=== PATIENT | female | born 1995 | race Caucasian/White ===

== ENCOUNTER → 2023-07-13 | Outpatient (CLI) | payer MEDICAID, SELFPAY ==
[2023-07-13 18:31] LABS: Amphetamine Urine VISTA NEGATIVE (<1000 ng/mL); Barbiturate Urine VISTA NEGATIVE (< 200 ng/mL); Benzodiazepine Urine VISTA POSITIVE (< 200 ng/mL); Cocaine Urine VISTA NEGATIVE (< 300 ng/mL); Ecstacy Urine VISTA NEGATIVE (< 500 ng/mL); Methadone Urine VISTA NEGATIVE (< 300 ng/mL); PCP Urine VISTA NEGATIVE (< 25 ng/mL); THC Urine VISTA POSITIVE (< 50 ng/mL); Vista UDS pH Range 7
[2023-07-16 09:09] LABS: Chlamydia By Nucleic Acid AMP Negative (Negative); Gonococcus By Nucleic Acid AMP Negative (Negative)
== END | disposition home or self-care (01) ==
PROVIDERS: Referring Provider Registered Nurse; Visit Provider Registered Nurse
DX: O09.819 Supervision of pregnancy resulting from assisted reproductive technology, unspecified trimester (principal); F11.21 Opioid dependence, in remission; O99.320 Drug use complicating pregnancy, unspecified trimester; Z3A.00 Weeks of gestation of pregnancy not specified
CPT/HCPCS: 80307; 87086; 87491; 87591

== ENCOUNTER → 2023-07-20 | Outpatient (CLI) | payer MEDICAID, SELFPAY ==
[2023-07-20 12:07] LABS: Absolute Lymphocyte Count 2.35 X10^3/uL (0.83-4.51); Absolute Neutrophil Count 7.7 X10^3/uL (2.0-7.7); Basophil# 0.03 X10^3/uL; Basophil% 0.3 % (0-1); Eosinophil# 0.11 X10^3/uL; Hematocrit 37.9 % (37-47); Hemoglobin 13.3 g/dL (12.0-15.0); Lymphocyte # 2.35 X10^3/ul (0.83-4.51); Lymphocyte % 22.1 % (19-41); Mean Corp Hgb Conc 35.1 g/dL (32-36); Mean Corpuscular Hgb 28.9 pg (27.0-32.0); Mean Corpuscular Volume 82.4 fL (81-99); Mean Platelet Vol. 10.7 fl (6.2-12.0); Monocyte# 0.44 X10^3/uL; Monocyte% 4.1 % (0-10); NRBC Flagged by Analyzer 0 % (0-5); Neutrophil # 7.69 X10^3/uL (2.7-7.7); Neutrophil % 72.3 % (47-70); Platelet Count 188 K/mm3 (150-450); RBC Distribution Width CV 13.1 % (11.6-14.6); RBC Distribution Width SD 39.2 fl (35.1-43.9); White Blood Count 10.6 K/mm3 (4.4-11.0)
[2023-07-20 13:03] LABS: NATERA MAILED SPECIMEN
[2023-07-20 13:17] LABS: HIV - WCH Non-Reactive (Nonreactive); Hepatitis B Surface Antigen Non-Reactive (Nonreactive); Hepatitis C Antibody Non-Reactive (Nonreactive); Rubella IgG Reactive (Nonreactive); Syphilis Antibodies Non-reactive
== END | disposition home or self-care (01) ==
LOC: PAVLAB 11:52
PROVIDERS: Referring Provider Registered Nurse; Visit Provider Registered Nurse
DX: Z34.81 Encounter for supervision of other normal pregnancy, first trimester (principal)
CPT/HCPCS: 36415; 85025; 86703; 86762; 86780; 86803; 86850; 86900; 86901; 87340

== ENCOUNTER → 2023-11-09 | Outpatient (CLI) | payer MEDICAID, SELFPAY ==
[2023-11-09 09:56] LABS: Absolute Lymphocyte Count 2.48 X10^3/uL (0.83-4.51); Absolute Neutrophil Count 7.3 X10^3/uL (2.0-7.7); Basophil# 0.04 X10^3/uL; Basophil% 0.4 % (0-1); Eosinophil# 0.13 X10^3/uL; Eosinophils% 1.2 % (0-5); Hematocrit 35.8 % (37-47); Lymphocyte # 2.48 X10^3/ul (0.83-4.51); Lymphocyte % 23.3 % (19-41); Mean Corp Hgb Conc 33.5 g/dL (32-36); Mean Corpuscular Hgb 28.5 pg (27.0-32.0); Mean Platelet Vol. 11.1 fl (6.2-12.0); Monocyte% 6.6 % (0-10); NRBC Flagged by Analyzer 0 % (0-5); Neutrophil # 7.25 X10^3/uL (2.7-7.7); Platelet Count 158 K/mm3 (150-450); RBC Distribution Width CV 13.2 % (11.6-14.6); RBC Distribution Width SD 41.1 fl (35.1-43.9); Red Blood Count 4.21 M/mm3 (4.2-5.4); White Blood Count 10.7 K/mm3 (4.4-11.0)
--- OUTSIDE RECORDS SUMMARY | 2023-11-09 09:58 | XMS RPT_ITS | CCD ---
Author Name Unknown Address [address] [place] [address] Organization [facility] Care Team Providers Care Registered Representative Name Role Phone No, Physician Unavailable Unavailable María Arellano Unavailable MARÍA ARELLANO Unavailable Unav ailable PRESTON, EARL MARÍA Unavailable Unavailab le MARÍA ARELLANO Unavailable Unav ailable NO, PHYSICIAN Unavailable Unavailable PRESTON, EARL MARÍA Unavailable Unavailab le NO, PHYSICIAN Unavailable Unavailable LoretaBalajiMerari M Unavailable Unavailable LoretaBalajiMerari M Unavailable Unavailable Arellano, María Unavailable Unavailable Arellano, María Unavailable Unavailable Arellano, María Unavailable Unavailable Arellano, María Unavailable Unavailable Preston, Earl E Unavailable Unavailable Preston, Earl E Unavailable Unavailable No, Physician Primary Care Provider Unavailabl e María Arellano Unavailable Unavailable Primary Care Provider Unavailabl e Unavailable Primary Care Provider Unavailabl e María Arellano Unavailable No, Physician Primary Care Provider UnavailMARÍA Moreno Attending Unav ailable NO, PHYSICIAN Primary Care Unavailable MARÍA ARELLANO Admitting Unav ailable NO, PHYSICIAN Primary Care Unavailable MERARI GONZALES Attending UnavailMaría Moreno MD Unavailable No, Physician Primary Care Provider Unavailabl e Unavailable Primary Care Provider UnavailTASNEEM Dumont Attending Unavailable ROBERT SANTANA Attending Unavailable COLETTE DRISCOLL Referring Unavailable TASNEEM LEDEZMA Attending Unavailable ARIA NEWELL Attending Unavailable SHERINE PRIMARY CAREMD Primary Care Unavailable HAILE LANDAVERDE Referring Unavailable NO PRIMARY CAREMD Primary Care Unavailable YADIEL SWENSON Attending Unavailable MALLIKA BOLAND Referring Unavailabl e Allergies Allergy Classification Reported Allergen(s) Allergy Type Date of Onset Reaction(s) Facility (7 sources) DULoxetine; Translations: [DULOXETINE] Drug Allergy 03-20-2012 Mental Status Change, Rash, Hives, Other: See Comments [facility] Medications Current Medications Medication Drug Class(es) Dates Sig (Normalized) Sig (Original) azithromycin 250 mg oral tablet (2 sources) Macrolide Antimicrobial Start: 09-27-2020 End: 09-30-2020 take 1 tablet by mouth once daily azithromycin 250 MG tablet 250 mg PO Once Daily X 4 days 4 tablet 0 09/27/2020 09/30/2020 Active Completed/Discontinued Medications Medication Drug Class(es) Dates Sig (Normalized) Sig (Original) acetaminophen 325 mg oral tablet (1 source) Start: 01-19-2021 End: 01-21-2021 take 1 tablet by mouth every four hours as needed 650 mg, Oral, Every 4 hours PRN, mild pain, Starting 01/19/21 at 2102, albuterol (VENTOLIN HFA) inhaler 2 puff (1 source) Start: 09-26-2020 End: 09-26-2020 albuterol (VENTOLIN HFA) inhaler 2 puff aluminum hydroxide 40 mg/ml / magnesium hydroxide 40 mg/ml / simethicone 4 mg/ml oral suspension (1 source) Start: 01-19-2021 End: 01-21-2021 take 30 mL by mouth every four hours as needed 30 mL, Oral, Every 4 hours PRN, indigestion, Starting 01/19/21 at 2102, benzocaine 200 mg/ml topical spray (1 source) Standardized Chemical Allergen Start: 01-19-2021 End: 01-21-2021 1 application, Topical, Every 4 hours PRN, pain, Starting 01/19/21 at 2102, To perineal area. buprenorphine 8 mg sublingual tablet (14 sources) Partial Opioid Agonist Start: 04-01-2023 buprenorphine SL (SUBUTEX) 8 mg subl Problems Active Problems Problem Classification Problem Date Documented Date Episodic/Chronic Acute bronchitis (1 source) Acute bronchitis with bronchospasm; Translations: [Acute bronchitis with bronchospasm] Episodic Biliary tract disease (2 sources) Calculus of gallbladder without cholecystitis without obstruction; Translations: [Calculus of gallbladder without cholecystitis without obstruction] Onset: 04-01-2018 Episodic Cancer of cervix (6 sources) High grade squamous intraepithelial lesion on cervical Papanicolaou smear; Translations: [High grade squamous intraepithelial lesion on cytologic smear of cervix (HGSIL)] Onset: 04-13-2023 Episodic Disorders of teeth and jaw (1 source) Infection of tooth; Translations: [Dental infection] Episodic Normal and/or delivery (7 sources) Normal ; Translations: [Vaginal delivery] Onset: 12-25-2017 12-28-2017 Episodic Other and delivery including normal (2 sources) Normal in primigravida; Translations: [Supervision of normal first ] Onset: 12-25-2017 12-28-2017 Screening or history of mental health and substance abuse (4 sources) Tobacco user; Translations: [Tobacco abuse] Onset: 07-09-2017 12-25-2017 Chronic Substance-related disorders (5 sources) Drug abuse in remission; Translations: [History of drug abuse] Onset: 07-09-2017 12-25-2017 Chronic Unclassified (1 source) Contusion of right elbow; Translations: [Contusion of right elbow, initial encounter] Past or Other Problems Problem Classification Problem Date Documented Date Episodic/Chronic Immunizations and screening for infectious disease (4 sources) Patient encounter status; Translations: [Encounter for screening for infections with a predominantly sexual mode of transmission] Onset: 04-03-2023 Episodic Other screening for suspected conditions (not mental disorders or infectious disease) (2 sources) Cancer cervix screening status; Translations: [Encounter for screening for malignant neoplasm of cervix] Onset: 04-03-2023 Episodic Residual codes; unclassified (1 source) Tobacco user; Translations: [Tobacco use] Onset: 07-09-2017 12-25-2017 Episodic Results Test Name Value Interpretation Reference Range Facil ity Vital Signs Date Time Vital Sign Value Performing Clinician Facility 04-17-2023 14:0400 Body weight 65.77 kg Robert Santana MD Work Phone: [facility] 04-17-2023 14:09-0400 Diastolic blood pressure 70 mm[Hg] Robert Santana MD Work Phone: [facility] 04-17-2023 14:09-0400 Systolic blood pressure 108 mm[Hg] Robert Santana MD Work Phone: [facility] 04-03-2023 11:05-0400 Body height 172.7 cm Tasneem Gary BUSINESS RELATIONS MANAGER.DOMESTIC HOUSEKEEPER Work Phone: [facility] 04-03-2023 11:05-0400 Body weight 63.96 kg Tasneem Gary BUSINESS RELATIONS MANAGER.DOMESTIC HOUSEKEEPER Work Phone: [facility] 04-03-2023 11:05-0400 Diastolic blood pressure 62 mm[Hg] Tasneem Brisa BUSINESS RELATIONS MANAGER.DOMESTIC HOUSEKEEPER Work Phone: [facility] 04-03-2023 11:05-0400 Systolic blood pressure 118 mm[Hg] Tasneem Brisa BUSINESS RELATIONS MANAGER.DOMESTIC HOUSEKEEPER Work Phone: [facility] 01-21-2021 08:54-0400 Body Temperature 98.1 [degF] [facility] 01-21-2021 08:54-0400 BP Diastolic 66 mm[Hg] [facility] 01-21-2021 08:54-0400 BP Systolic 116 mm[Hg] [facility] 01-21-2021 08:54-0400 Pulse (Heart Rate) 88 /min [facility] 01-21-2021 08:54-0400 Pulse Oximetry 98 % [facility] 01-21-2021 08:54-0400 Respiratory Rate 14 /min [facility] 01-19-2021 18:15-0400 BMI (Body Mass Index) 22.74 kg/m2 [facility] 01-19-2021 18:15-0400 Body weight 69.85 kg [facility] 01-19-2021 18:15-0400 Height 175.3 cm [facility] 09-26-2020 05:36-0500 Body Temperature 97.9 [degF] [facility] 09-26-2020 05:36-0500 BP Diastolic 72 mm[Hg] [facility] 09-26-2020 05:36-0500 BP Systolic 126 mm[Hg] [facility] 09-26-2020 05:36-0500 Pulse (Heart Rate) 109 /min [facility] 09-26-2020 05:36-0500 Pulse Oximetry 99 % [facility] 09-26-2020 05:36-0500 Respiratory Rate 16 /min [facility] 03-10-2020 14:11-0400 BMI (Body Mass Index) 20.67 kg/m2 [facility] 03-10-2020 14:11-0400 Body weight 63.5 kg [facility] 03-10-2020 14:11-0400 Height 175.3 cm [facility] 03-10-2020 14:10-0400 Body Temperature 98.1 [degF] [facility] 03-10-2020 14:10-0400 BP Diastolic 58 mm[Hg] [facility] 03-10-2020 14:10-0400 BP Systolic 105 mm[Hg] [facility] 03-10-2020 14:10-0400 Pulse (Heart Rate) 98 /min [facility] 03-10-2020 14:10-0400 Pulse Oximetry 95 % [facility] 03-10-2020 14:10-0400 Respiratory Rate 18 /min [facility] 11-08-2019 23:12-0500 BP Diastolic 74 mm[Hg] Yousuf Barboza [facility] 11-08-2019 23:12-0500 BP Systolic 124 mm[Hg] Yousuf Barboza [facility] 11-08-2019 23:12-0500 Pulse (Heart Rate) 90 /min Yousuf Barboza [facility] 11-08-2019 23:12-0500 Pulse Oximetry 99 % Yousuf Barboza [facility] 11-08-2019 23:12-0500 Respiratory Rate 18 /min Yousuf Barboza [facility] 11-08-2019 21:24-0500 BMI (Body Mass Index) 20.67 kg/m2 Yousuf Barboza [facility] 11-08-2019 21:24-0500 Body Temperature 98.29 [degF] Yousuf Barboza [facility] 11-08-2019 21:24-0500 Body weight 63.5 kg Yousuf Barboza [facility] 11-08-2019 21:24-0500 Height 175.3 cm Yousuf Barboza [facility] 04-01-2018 13:05-0400 BMI (Body Mass Index) 20.98 kg/m2 Earl Johnston [facility] 04-01-2018 13:05-0400 Body Temperature 97.81 [degF] Earl Preston [facility] 04-01-2018 13:05-0400 BP Diastolic 65 mm[Hg] Earl [facility] 04-01-2018 13:05-0400 BP Systolic 117 mm[Hg] [facility] 04-01-2018 13:05-0400 Height 175.3 cm [facility] 04-01-2018 13:05-0400 Pulse (Heart Rate) 96 /min [facility] 04-01-2018 13:05-0400 Pulse Oximetry 97 % [facility] 04-01-2018 13:05-0400 Weight 64.46 kg [facility] Encounters Encounter Date Encounter Type Care Provider Facility Start: 10-13-2023 End: 10-13-2023 ambulatory ARIA Carmen [facility] Start: 09-10-2023 End: 09-10-2023 ambulatory MD [facility] Start: 06-17-2023 Telephone encounter Rajani Philippe MD Work Phone: OB/Gynecology Procedures Date Procedure Procedure Detail Performing Clinician Start: 04-17-2023 Urine test visual color cmprsn meths Robert Santana MD Work Phone: Start: 01-20-2021 Complete blood count with white cell differential, automated María Arellano Work Phone: Start: 01-20-2021 Complete blood count with white cell differential, manual María Arellano Work Phone: Start: 01-19-2021 Drugs of abuse urine screening test María Arellano Work Phone: Start: 01-19-2021 COVID-19/INFLUENZA A ,B MOLECULAR María Arellano Work Phone: Start: 01-14-2021 Chlamydia deoxyribon ucleic acid detection Historical Provider Start: 01-14-2021 Rapid plasma reagin test Historical Provider Start: 07-17-2020 Blood type and Indir ect antibody screen panel - Blood Historical Provider Start: 07-17-2020 Hepatitis B surface antigen measurement Historical Provider Start: 07-17-2020 Hepatitis C antibody measurement Historical Provider Start: 07-17-2020 Human immunodeficien cy virus test Historical Provider Start: 07-17-2020 Rubella IgG measurement Historical Provider Start: 11-08-2019 Radex elbow complete minimum 3 views Yousuf Bonifacio Barboza Work Phone: Plan of Treatment Date Care Activity Detail Author Start: 11-12-2030 Urine microalbumin profile DTAP,TDAP,TD (9 - Td or Tdap) [facility] Start: 12-01-2027 Tetanus vaccination [facility] Start: 04-03-2026 PAP TESTING PAP TESTING [facility] Start: 07-03-2023 Influenza vaccination [facility] Start: 06-02-2023 9vhpv vacc 2/3 dose sched im use HPV VACCINE, 9-VALENT (GARDASIL 9) Immunization/Injection Routine Need for prophylactic vaccination/inoculation against viral disease Expected: 06/02/2023 (Approximate) [facility] Work Phone: Immunizations Immunization Date Immunization Notes Care Provider Neil mcfarland 01-19-2021 measles, mumps and rubella virus vaccine [facility] 01-19-2021 varicella zoster imm une globulin [facility] 01-19-2021 diphtheria, tetanus toxoids and acellular pertussis vaccine, unspecified formulation [facility] 11-12-2020 tetanus toxoid, redu emily diphtheria toxoid, and acellular pertussis vaccine, adsorbed Tasneem Ledezma APRN.CNP Work Phone: [facility] 12-01-2017 tetanus toxoid, redu emily diphtheria toxoid, and acellular pertussis vaccine, adsorbed; Translations: [TDAP] María Arellano [facility] 08-12-2017 INFLUENZA QUAD 4YO O R >FLUCELVAX [id number]; Translations: [INFLUENZA QUAD 4YO OR >FLUCELVAX [id number]] María Arellano [facility] 08-12-2017 influenza virus vaccine, unspecified formulation [facility] 06-27-2014 hepatitis A vaccine, pediatric/adolescent dosage, 2 dose schedule Tasneem Gary BUSINESS RELATIONS MANAGER.DOMESTIC HOUSEKEEPER Work Phone: [facility] 06-27-2014 human papilloma viru s vaccine, quadrivalent Tasneem Brisa BUSINESS RELATIONS MANAGER.DOMESTIC HOUSEKEEPER Work Phone: [facility] 06-27-2014 meningococcal polysaccharide (groups A, C, Y and W-135) diphtheria toxoid conjugate vaccine (MCV4P) Tasneem Brisa BUSINESS RELATIONS MANAGER.DOMESTIC HOUSEKEEPER Work Phone: [facility] 06-27-2014 tetanus toxoid, redu emily diphtheria toxoid, and acellular pertussis vaccine, adsorbed Tasneem Gary BUSINESS RELATIONS MANAGER.DOMESTIC HOUSEKEEPER Work Phone: [facility] 06-27-2014 HPV, unspecified [facility]2002 diphtheria, tetanus toxoids and acellular pertussis vaccine, unspecified formulation Tasneem Brisa BUSINESS RELATIONS MANAGER.DOMESTIC HOUSEKEEPER Work Phone: [facility] 11-01-2002 measles, mumps and rubella virus vaccine Tasneem Gary BUSINESS RELATIONS MANAGER.DOMESTIC HOUSEKEEPER Work Phone: [facility] 11-01-2002 poliovirus vaccine, inactivated Tasneem Gary BUSINESS RELATIONS MANAGER.DOMESTIC HOUSEKEEPER Work Phone: [facility] 04-26-1998 diphtheria, tetanus toxoids and acellular pertussis vaccine, unspecified formulation Tasneem Brisa BUSINESS RELATIONS MANAGER.DOMESTIC HOUSEKEEPER Work Phone: [facility] 04-26-1998 haemophilus influenz ae type b vaccine, PRP-OMP conjugate Tasneem Brisa BUSINESS RELATIONS MANAGER.DOMESTIC HOUSEKEEPER Work Phone: [facility] 04-26-1998 measles, mumps and rubella virus vaccine Tasneem Gary BUSINESS RELATIONS MANAGER.DOMESTIC HOUSEKEEPER Work Phone: [facility] 04-26-1998 varicella virus vaccine Curtis e Brisa BUSINESS RELATIONS MANAGER.DOMESTIC HOUSEKEEPER Work Phone: [facility] 07-21-1997 diphtheria, tetanus toxoids and acellular pertussis vaccine, unspecified formulation Tasneem Gary BUSINESS RELATIONS MANAGER.DOMESTIC HOUSEKEEPER Work Phone: [facility] 07-21-1997 haemophilus influenz ae type b vaccine, conjugate unspecified formulation Tasneem Brisa BUSINESS RELATIONS MANAGER.DOMESTIC HOUSEKEEPER Work Phone: [facility] 07-21-1997 hepatitis B vaccine, pediatric or pediatric/adolescent dosage Tasneem Gary BUSINESS RELATIONS MANAGER.DOMESTIC HOUSEKEEPER Work Phone: [facility] 07-21-1997 trivalent poliovirus vaccine, live, oral Tasneem Brisa BUSINESS RELATIONS MANAGER.DOMESTIC HOUSEKEEPER Work Phone: [facility] 05-11-1997 diphtheria, tetanus toxoids and acellular pertussis vaccine, unspecified formulation Tasneem Gary BUSINESS RELATIONS MANAGER.DOMESTIC HOUSEKEEPER Work Phone: [facility] 05-11-1997 haemophilus influenz ae type b vaccine, conjugate unspecified formulation Tasneem Gary BUSINESS RELATIONS MANAGER.DOMESTIC HOUSEKEEPER Work Phone: [facility] 05-11-1997 trivalent poliovirus vaccine, live, oral Tasneem Brisa BUSINESS RELATIONS MANAGER.DOMESTIC HOUSEKEEPER Work Phone: [facility] 03-03-1997 diphtheria, tetanus toxoids and acellular pertussis vaccine, unspecified formulation Tasneem Gary BUSINESS RELATIONS MANAGER.DOMESTIC HOUSEKEEPER Work Phone: [facility] 03-03-1997 haemophilus influenz ae type b vaccine, conjugate unspecified formulation Tasneem Gary BUSINESS RELATIONS MANAGER.DOMESTIC HOUSEKEEPER Work Phone: [facility] 03-03-1997 hepatitis B vaccine, pediatric or pediatric/adolescent dosage Tasneem Brisa BUSINESS RELATIONS MANAGER.DOMESTIC HOUSEKEEPER Work Phone: [facility] 03-03-1997 trivalent poliovirus vaccine, live, oral Tasneem Brisa BUSINESS RELATIONS MANAGER.DOMESTIC HOUSEKEEPER Work Phone: [facility] 1995 hepatitis B vaccine, pediatric or pediatric/adolescent dosage Tasneem Gary BUSINESS RELATIONS MANAGER.DOMESTIC HOUSEKEEPER Work Phone: [facility] NEGATED: Highlighted row has not occurred!04-03-2023 Human Papillomavirus 9-valent vaccine Tasneem Gary BUSINESS RELATIONS MANAGER.DOMESTIC HOUSEKEEPER Work Phone: [facility] Work Phone: Payers Date Payer Category Payer Medicaid [employer] [id number] 2022-Present [phone] [address] [place] [address] Medicaid [id number] 2022 Medicaid [id number] 2016 Medicaid [id number] 2016 Medicaid xxxxxxxxxxx [id number] 2016 Unknown [id number] 1996 Unknown [id number] 1996 Unknown [id number] 1996 Unknown [id number] 1996 Unknown [id number] Social History Date Type Detail Facility Start: 04-01-2018 End: 04-03-2023 Tobacco smoking status LAIS Current every day smoker [facility] Start: 1995 Sex Assigned At Not on file O [facility] Start: 11-08-2019 End: 01-19-2021 Alcohol intake Current non-drinker of alcohol (finding) [facility] Start: 03-10-2020 End: 05-26-2023 Alcohol intake Ex-drinker (finding) [facility] Exposure to SARS-CoV -2 (event) Not sure [facility] Start: 09-26-2020 End: 04-03-2023 Tobacco use and exposure [facility] Start: 05-11-2020 [facility]: 03-24-2023 End: 05-26-2023 History of Social function [facility] Start: 03-24-2023 End: 05-26-2023 Tobacco use panel [facility] National Score (1-10 0), lower number is lower risk 57 [facility] Clinical Notes 04-03-2023 to 06-17-2023 Telephone Encounter - Angelia Florian RN - 06/17/2023 2:02 PM EDTTelephone Encounter - Tasneem Ledezma APRN.CNP - 06/17/2023 12:30 PM EDTPatient InstructionsRobert Santana MD - 04/17/2023 1:59 PM EDT Note Date & Type Note Facility 06-17-2023 Miscellaneous Notes Per RR note and AG request, patient was scheduled for PNOB and EST 1st OB. Patient called and scheduled. She has not gone to ER. At her mom's. Feeling a little better now. Angelia Florian RN Up to 20 weeks we can see them. Tasneem Ledezma APRN.TREVA Unfortunately we are very full for NOB visits. If she can see Ame then have a NOB somewhere if we have openings but we don't have extra spots right now for patients who miss appointments. I will say next available is best we can do. Rajani Philippe MD LMP 04/04/23 10w 4d Calling c/o n/v for the last day. Only able to keep a couple sips of Sprite down. Advised to go to ER for IV fluids/meds. Patient agreed. Noticed she had NOB visit with AG that she missed this morning. Attempted to reschedule her. First NOB with AG, RM or CP is 07/01/23. She would be 12w4d then. Is that okay for AG or RM to see at that point or should we try to schedule PNOB and sooner NOB with someone else? Sherri Ramirez RN documented in this encounter [facility] 06-10-2023 Miscellaneous Notes Call placed to patient to triage for new OB appt. Name and identified. LMP? 04/04/2023 from what she can remember PNV? Not yet Cats? no Pelvic pain? No, aside from cramping Vaginal bleeding? no N&V? If patient is vomiting, how often and is she keeping down fluids? Occasional nausea and vomiting Precautions for pain, bleeding, and nausea discussed with patient understanding. Any medical history that can effect the ? +HGSIL, was suppose to have a LEEP, but canceled when she got a + test Office/provider patient wishes to establish care to? [facility] Will forward this encounter to the schedulers in this office. ----- Message from Norah Aguilar sent at 06/10/2023 1:37 PM EDT ----- Regarding: triage new Patient has been identified by name and Date of : Yes Patient: Shon Taveras Date of : 1995 Provider for this encounter : Hi cells was schedule for leep procedure. No primary care provider on file. Reason for call: Triage Was an appointment scheduled: No Reason for requesting visit (RFV/signs and symptoms/diagnosis) : Patient has hi red blood cells Person calling: self Return call to: self Call patient at: on cell [phone] (home) [phone] (cell) Payor: [facility] [employer] / Plan: [employer] [facility] [employer] / Product Type: Medicaid / Norah Aguilar documented in this encounter [facility] 05-26-2023 Note HNO ID: [id number] Author: Tasneem Ledezma APRN.DOMESTIC HOUSEKEEPER Service: ? Author Type: Nurse Practitioner Type: Progress Notes Filed: 05/26/2023 11:31 AM Note Text: Shon Taveras is a 27 year old female who presents to discuss colp results HPI: Patient presents with her to discuss results of her abnormal Pap test and colposcopy biopsy results. She was confused about the telephone message regarding the LEEP procedure and future pregnancies. 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) 04/2023 PTSD (post-traumatic stress disorder) PAST SURGICAL HISTORY Procedure Laterality Date NONE No family history on file. Social History Tobacco Use Smoking status: Every Day Types: Cigarettes Smokeless tobacco: Never Vaping Use Vaping Use: Never used Substance Use Topics Alcohol use: Not Currently Drug use: Not Currently Current Outpatient Medications Medication Sig clonazePAM (KLONOPIN) 1 mg tablet gabapentin (NEURONTIN) 300 mg capsule (Patient not taking: Reported on 05/26/2023) buprenorphine SL (SUBUTEX) 8 mg subl medroxyPROGESTERone (DEPO-PROVERA) 150 mg/mL Inject 1 mL intramuscularly every 12 weeks. Current Facility-Administered Medications Medication Dose Route Frequency medroxyPROGESTERone 150 mg injection (DEPO-PROVERA) 150 mg INTRAMUSCULAR every 12 weeks Allergies As of Date: 05/26/2023 Allergen Noted Reaction DULOXETINE 03/20/2012 Mental Status Change, Rash, Hives, and Other: See Comments Fully Assessed 05/26/2023 REVIEW OF SYSTEMS Expanded ROS: N/A Allergies and current medication updated:Yes EXAM: BP 114/70 Wt 144 lb 3.2 oz (65.4kg) LMP 05/04/2023 GENERAL: pleasant, female in no apparent distress HEENT: Normocephalic, atraumatic, mucus membranes moist, and no lesions CHEST: Normal inspiratory effort NEURO: alert and oriented x3,exam grossly non-focal ASSESSMENT/PLAN: 1. High grade squamous intraepithelial lesion (HGSIL), grade 2 SHELBY, on biopsy of cervix - ICD9: 622.12, ICD10: N87.1 (primary diagnosis) 2. Dysplasia of cervix, low grade (SHELBY 1) - ICD9: 622.11, ICD10: N87.0 I explained the LEEP procedure and follow-ups exams after. Also discussed future pregnancies regarding the risk of spontaneous miscarriages and deliveries within 3 months of the procedure. The couple is planning to get next year. Patient is going to go ahead with the LEEP procedure at this time. Patient to be scheduled with Dr Santana. Tasneem Ledezma APRN.DOMESTIC HOUSEKEEPER Medical Decision Making: Problems: Low: Acute, uncomplicated illness or injury Risk: Low: Low risk from testing/treatment Medical Decision Making Level: 3 - Low [facility] 04-23-2023 Miscellaneous Notes Pt notified and stated that she wanted to further consider her results and options. Pt will contact our office to schedule further. Nikia Solares LPN' ----- Message from Robert Santana MD sent at 04/23/2023 1:04 PM EDT ----- Notify pt of CIN1 and CIN2. Given high grade the options depend on if she desires more pregnancies in the future. If she desires , can consider observation with HPV test and colposcopy in 6 and 12 months. If she does not desire future pregnancies, recommend LEEP. If she wants to discuss please schedule her for a visit with me thanks documented in this encounter [facility] 04-17-2023 Note HNO ID: [id number] Author: Robert Santana MD Service: ? Author Type: Physician Type: Progress Notes Filed: 04/17/2023 5:03 PM Note Text: Machine Heel Seat Fitter offered: Patient declines. Shon is a 27 year old who presents today for a colposcopy. The patient's last pap smear was HGSIL from April 2023. Patient has a history of abnormal pap: No. The patient has had prior treatment: none. test: negative UNIVERSAL PROTOCOL / SAFETY CHECKLIST Procedure to be Performed: Colposcopy Sign In: A Moment of CARE was completed. Personnel directly involved with the procedure wore the appropriate PPE (Personal Protective Equipment). Patient/Surrogate Stated/Verified: PATIENT VERIFIED(optional for EMERGENT procedures): Patient name, Date of , Relevant allergies, and The intended procedure Time Out Communication: Intended patient and procedure match the source documents. Consent documented and matches the intended procedure. Sign Out: SIGN OUT (optional for EMERGENT procedures): All specimen containers correctly labeled. All instruments, equipment, possible retained foreign bodies accounted for. Post-procedure follow-up management communicated and Plan of Care Visit completed when applicable. PROCEDURE: EXTERNAL GENITALIA: Normal in appearance without lesions VAGINA: Normal in appearance without lesions CERVIX: Speculum placed in vagina and excellent visualization of cervix achieved. Cervix swabbed x 3 with 3% acetic acid solution. Cervix grossly normal. Squamocolumnar junction visualized. acetowhite changes noted 11-12 o'clock, 6 o'clock. BIOPSY: Done at 6:00, 11:00, and 12:00 ECC: done HEMOSTASIS: Obtained with silver nitrate Procedure Summary: Patient tolerated procedure well and colposcopy was adequate. ASSESSMENT: HPV effect PLAN: Specimens labeled and sent to Pathology. Will notify patient of results in 1-2 weeks. Post-procedure instructions reviewed and written material given to the patient. Robert Santana DO [facility] 04-17-2023 Instructions Cherie Walker MA - 04/17/2023 2:00 PM EDT YOUR RECOVERY It may take a few weeks for your cervix to heal. While your cervix heals, you may have: - Vaginal bleeding (less than a normal menstrual period) - Mild cramping - A brown-black vaginal discharge (similar to coffee grounds) which is a result of the paste used to help stop bleeding from the procedure Do NOT put anything in the vagina for 1 week after your colposcopy if your doctor does a biopsy of your cervix. This includes sex, tampons, and douches. If you have any discomfort, you may take an over the counter pain medication (motrin, advil, ibuprofen, tylenol, etc). If this does not relieve your discomfort, contact your doctor's office for a prescription strength pain medication. It is okay to wear a sanitary pad until the discharge and spotting stops. RISKS Although problems seldom occur with colposcopy, there can be some complications. You may feel faint during and shortly after the procedure as well as have some bleeding and vaginal discharge after the procedure. There is also a risk of infection after the procedure. These complications are rare and can be easily treated. You should contact you doctor is you have any of the following: - Heavy bleeding (more than your normal period) - Bleeding with clots - Severe abdominal pain - Fever (more than 100.4F) - Foul smelling vaginal discharge RESULTS If a biopsy was taken, we will have the results of your biopsy in 1-2 weeks. If you do not hear the results of your biopsy after 2 weeks, please contact your physicians office for the results. Depending on the biopsy results, your doctor will determine your follow up plan which may include further testing or treatments. STAYING HEALTHY After the procedure, you will need to see your doctor for follow up visits during the year. At these visits your doctor will check the health of your cervix with a pap smear. After three normal pap smears, your doctor will allow you to return to having exams once a year. If you have another abnormal pap smear, you may need closer follow up for longer or you may need additional treatment. By making a few lifestyle changes after the procedure, you can help protect the health of your cervix: - Have regular pelvic exams and pap smears as ordered by your doctor. - Stop smoking as smoking increases your risk of developing a cancer of the cervix - If you have more than one sexual partner, limit your number of partners and use condoms to reduce your risks of STDs. If you have any additional questions, please contact your doctor's office. documented in this encounter [facility] 04-17-2023 History of Presen t illness Narrative Machine Heel Seat Fitter offered: Patient declines. Shon is a 27 year old who presents today for a colposcopy. The patient's last pap smear was HGSIL from April 2023. Patient has a history of abnormal pap: No. The patient has had prior treatment: none. test: negative UNIVERSAL PROTOCOL / SAFETY CHECKLIST Procedure to be Performed: Colposcopy Sign In: A Moment of CARE was completed. Personnel directly involved with the procedure wore the appropriate PPE (Personal Protective Equipment). Patient/Surrogate Stated/Verified: PATIENT VERIFIED(optional for EMERGENT procedures): Patient name, Date of , Relevant allergies, and The intended procedure Time Out Communication: Intended patient and procedure match the source documents. Consent documented and matches the intended procedure. Sign Out: SIGN OUT (optional for EMERGENT procedures): All specimen containers correctly labeled. All instruments, equipment, possible retained foreign bodies accounted for. Post-procedure follow-up management communicated and Plan of Care Visit completed when applicable. PROCEDURE: EXTERNAL GENITALIA: Normal in appearance without lesions VAGINA: Normal in appearance without lesions CERVIX: Speculum placed in vagina and excellent visualization of cervix achieved. Cervix swabbed x 3 with 3% acetic acid solution. Cervix grossly normal. Squamocolumnar junction visualized. acetowhite changes noted 11-12 o'clock, 6 o'clock. BIOPSY: Done at 6:00, 11:00, and 12:00 ECC: done HEMOSTASIS: Obtained with silver nitrate Procedure Summary: Patient tolerated procedure well and colposcopy was adequate. ASSESSMENT: HPV effect PLAN: Specimens labeled and sent to Pathology. Will notify patient of results in 1-2 weeks. Post-procedure instructions reviewed and written material given to the patient. Robert Santana DO documented in this encounter [facility] 04-03-2023 Note HNO ID: [id number] Author: Tasneem Ledezma APRN.TREVA Service: ? Author Type: Nurse Practitioner Type: Progress Notes Filed: 04/03/2023 4:02 PM Note Text: Machine Heel Seat Fitter offered: Patient declines. Menendez is a 27 year old who presents for an annual gynecologic exam with complaints, heavy bleeding. Menses: cycles every 25-30 days and 7-8 days of flow. 5 days of heavy bleeding Contraception: none HPV vaccine: Yes 1 dose Last Pap: normal HPV: N/A History of abnormal pap: No Last mammogram: never Sexually active: Yes History of STDS: None Patient concerns for STD exposure: No. 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 No pertinent family history.SOCIAL HISTORY Social History Tobacco Use Smoking status: Every Day Types: Cigarettes Smokeless tobacco: Never Vaping Use Vaping Use: Never used Substance Use Topics Alcohol use: Not Currently Drug use: Not Currently REVIEW OF SYSTEMS Abdomen: No abdominal pain, nausea, vomiting, diarrhea, or constipation. No bloating, early satiety, indigestion, or increased flatulence. Bladder: No dysuria, gross hematuria, urinary frequency, urinary urgency, or incontinence. Breast: No breast lumps, nipple d/c, overlying skin changes, redness or skin retraction. Allergies and current medication updated:Yes EXAM: Ht 5' 8 (1.73m) Wt 141 lb (64.0kg) BMI 21.44 kg/(m2). GENERAL: pleasant, female in no apparent distress HEENT: Normocephalic, atraumatic, mucus membranes moist, and no lesions NECK: Supple, full range of motion, no adenopathy, and thyroid normal DERMATOLOGY: Normal, without lesions, non-icteric, and non-hirsute BREAST: soft, non-tender, symmetric, no dominant mass, normal nipple-areolar complex, no lymphadenopathy, and no nipple discharge CHEST: Normal inspiratory effort ABDOMEN: soft, non-tender, and no masses PELVIC: external genitalia normal, normal Bartholin's glands, urethra, Minor Hill's glands, no vulvar lesions, no cervical lesions, good vaginal support, physiologic discharge present, normal appearing perineal body and perianal region BIMANUAL: uterus normal size, shape and consistency, no adnexal masses, and non-tender RECTOVAGINAL: deferred. NEURO: alert and oriented x3,exam grossly non-focal EXTREMITIES: normal ASSESSMENT/PLAN: 1) Health maintenance: Pap done with reflex HPV. Mammogram starting age 40. Nutrition, exercise and routine health maintenance exams reviewed. Calcium/Vitamin D supplementation information provided. HPV vaccine: receive 2nd dose today 2) Contraception: Depo Provera. Contraceptive options reviewed and information provided. 3) STD screening: Accepted STD check for Gonorrhea and Chlamydia. 4) Follow up one year or sooner as needed Tasneem Ledezma APRN.CNP [facility] 04-03-2023 Instructions Tasneem Ledezma APRN.CNP - 04/03/2023 11:37 AM EDT Gardasil Gardasil is a vaccine to protect against Human Papillomavirus (HPV) types 6, 11, 16, 18, 31,33,45, 52, 58. These viruses cause cancer and precancerous lesions on the cervix (opening between vagina and uterus), in the vagina and on the vulva (skin around the outside of the vagina) as well as genital warts. The vaccine cannot cause these diseases and cannot treat them if already present. Gardasil works best if given before contact with HPV. Most people are exposed to HPV soon after starting sexual activity. The vaccine is recommended between the ages of 9 and 45. Gardasil does not protect against all strains of HPV. Women who receive the vaccine still need to have regular pelvic exams and cervical cancer screening with the pap smear. You should ask your doctor if Gardasil is right for you if you have a weakened immune system, a bleeding disorder, plan to become soon or have a current illness causing fever. Gardasil is not recommended for women. You should be sure your doctor is aware of any allergies you have and all medications and herbal supplements you take. Gardasil is given to those ages 9-14 in 2 doses at 0 and 8 months. In ages 15-45, three injections are given at 0,2,6 months. Common side effects include pain, redness, itching and swelling at the injection site, nausea, fever, dizziness and fainting. Rare but potentially serious reactions have been reported. These include allergic reaction, swollen glands, joint and muscle pain, weakness and Guillain-Calhoun syndrome. documented in this encounter [facility] 04-03-2023 History of Presen t illness Narrative Machine Heel Seat Fitter offered: Patient declines. Shon is a 27 year old who presents for an annual gynecologic exam with complaints, heavy bleeding. Menses: cycles every 25-30 days and 7-8 days of flow. 5 days of heavy bleeding Contraception: none HPV vaccine: Yes 1 dose Last Pap: normal HPV: N/A History of abnormal pap: No Last mammogram: never Sexually active: Yes History of STDS: None Patient concerns for STD exposure: No. 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 No pertinent family history.SOCIAL HISTORY Social History Tobacco Use Smoking status: Every Day Types: Cigarettes Smokeless tobacco: Never Vaping Use Vaping Use: Never used Substance Use Topics Alcohol use: Not Currently Drug use: Not Currently REVIEW OF SYSTEMS Abdomen: No abdominal pain, nausea, vomiting, diarrhea, or constipation. No bloating, early satiety, indigestion, or increased flatulence. Bladder: No dysuria, gross hematuria, urinary frequency, urinary urgency, or incontinence. Breast: No breast lumps, nipple d/c, overlying skin changes, redness or skin retraction. Allergies and current medication updated:Yes EXAM: Ht 5' 8 (1.73m) Wt 141 lb (64.0kg) BMI 21.44 kg/(m^2). GENERAL: pleasant, female in no apparent distress HEENT: Normocephalic, atraumatic, mucus membranes moist, and no lesions NECK: Supple, full range of motion, no adenopathy, and thyroid normal DERMATOLOGY: Normal, without lesions, non-icteric, and non-hirsute BREAST: soft, non-tender, symmetric, no dominant mass, normal nipple-areolar complex, no lymphadenopathy, and no nipple discharge CHEST: Normal inspiratory effort ABDOMEN: soft, non-tender, and no masses PELVIC: external genitalia normal, normal Bartholin's glands, urethra, Minor Hill's glands, no vulvar lesions, no cervical lesions, good vaginal support, physiologic discharge present, normal appearing perineal body and perianal region BIMANUAL: uterus normal size, shape and consistency, no adnexal masses, and non-tender RECTOVAGINAL: deferred. NEURO: alert and oriented x3,exam grossly non-focal EXTREMITIES: normal ASSESSMENT/PLAN: 1) Health maintenance: Pap done with reflex HPV. Mammogram starting age 40. Nutrition, exercise and routine health maintenance exams reviewed. Calcium/Vitamin D supplementation information provided. HPV vaccine: receive 2nd dose today 2) Contraception: Depo Provera. Contraceptive options reviewed and information provided. 3) STD screening: Accepted STD check for Gonorrhea and Chlamydia. 4) Follow up one year or sooner as needed Tasneem Ledezma APRN.TREVA documented in this encounter [facility] 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)- Primary [facility] Outpatient Procedure (Routine) - Pending Review Specialty Diagnoses / Procedures Referred By Oneida llanos Referred To Contact [facility] Diagnoses 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) Procedures COLPOSCOPY COLPOSCOPY CERVIX BX CERVIX & ENDOCRV CURRETAGE Robert Santana MD [address] [place] [address] [address] Referral ID Status Reason Start Date Expiration Date Visits Requested Visits Authorized [id number] Pending Review Auto-Generat ed Referral 04/17/2023 04/16/2024 1 1 [facility] Assessments Diagnosis Epigastric pain - Primary Abdominal pain, epigastric Calculus of gallbladder with out cholecystitis without obstruction Diagnosis Contusion of right elbow, initial encounter Diagnosis Dental infection Acute apical periodontitis of pulpal origin Diagnosis Acute bronchitis with bronchospasm- Primary Acute bronchitis Diagnosis Delivery normal- Primary Normal delivery Vaginal delivery Summary Purpose Family History No Family History Records FoundNo Family History Records FoundNo Family History Records FoundNo Family History Records FoundNo Family History Records FoundNo Family History Records Found Advance Directives No Advanced Directives Records FoundDocuments on File Type Date Recorded Patient Associate Professor Physician Expl anation Advance Directives and Livin g Will 11/08/2019 10:07 PM Documents on File Type Date Recorded Patient Associate Professor Physician Expl anation Advance Directives and Livin g Will 01/19/2021 5:57 PM Latest Code Status on File Code Status Date Activated Date Inactivated Comments Full Code 01/19/2021 9:03 PM 01/21/2021 2:32 PM Reason for Referral Status Reason Specialty Diagnoses / Procedures Referred By Contact Referred To Contact New Request Family Medicine Diagnoses Dental infection Alyssa aCrpio APRN-CNP [address] [place] [address] Aisha Vargas APRN-CNP [address], [address] [address] Discharge Instructions * Instructions* Alyssa Carpio APRN-CNP - 03/10/2020 Warm compress to the right cheek area three times daily for 15 to 20 minutes three times a day as needed for pain and swelling. * Attachments The following attachments cannot be sent through Care Everywhere. * Tooth: Abscessed (Stateless) documented in this encounter* Attachments The following attachments cannot be sent through Care Everywhere. * Bronchitis with Inhaler ([facility]) (Stateless) documented in this encounter* Instructions* Michelle Medina RN - 01/21/2021 A Guide to Caring for Yourself and Your Baby was given to and reviewed with patient. Literature on pumping was given to and reviewed with patient. Post- Warning Signs literature was given to and reviewed with patient. Post- Pre-eclampsia literature was given to and reviewed with patient. Patient encouraged to reference material at home. Post Discharge Information Now that you have had you baby, we hope these instructions will help you return to full activity assoon as possible. If you have any problems, please contact our office. If you had a Vaginal Delivery: 1. You may drive a care, go up and down steps, take tub-baths or showers and in general, do things that you feel comfortable doing. Being careful not to become overtired is important - you will want to rest when your baby sleeps. 2. You may use any laxative you want for constipation. 3. You may begin the exercises for your abdominal muscles as soon as your heavy bleeding stops, or even sooner, if you are able to do so comfortable. 4. Sitz-baths in a warm tub will help with stitch or hemorrhoid discomfort. 5. It is probably best to avoid sexual intercourse and heavy lifting for about 4 weeks. 6. You will need some extra iron. Take one vitamin with iron daily until we see you in 6 weeks. This can be your vitamins or any multivitamin with iron you can purchase without a prescription. 7. Please ask about contraception. If you are not nursing and want to use control pulls, we will give you a prescription when you leave the hospital so that you can start taking them when the baby is two weeks old. 8. If you had a tubal operation, there are no special or different instructions. It is OK to get the incision wet during a bath or shower. If the bandage is still on you should take it off. 9. Do not force yourself if you are tired. If you have a fever, unusual pain or heavy bleeding, call the office. 10. Please call the office ([phone]) for your six weeks' checkup appointment time. Because we book far ahead for appointments, you should call the office within the next ten days. If you had a Delivery: Almost everything about applies to you also. There are two main differences: 1. You should not drive a car until your baby is 3 weeks old. (It is OK to ride in a car, however) 2. You should wait about 3 weeks before starting the abdominal muscle exercises. Remember, if you have any questions or problems, call the office. [phone] or [phone]. Please Note: Unless there are medical complications, maternity leave will be authorized for 6 weeks. documented in this encounter History of Present Illness * Cecil Lozada, - 09/26/2020 6:12 AM EST Patient has had inhaler in the past. Patient does not need instruction on use and benefits of MDI. Patient and inhaler scanned and sent home with patient per Dr. Juares. Mala Lozada SQUEEGEER AND FORMER documented in this encounter* María Arellano MD - 01/21/2021 11:13 AM EDT Vaginal Delivery Progress Note Assessment/Plan: Status post Vaginal Delivery: Doing well Continue current care. H/o drug use - continue subutex. Discharge to home with PPV in 6 weeks. Subjective: Day 2: Vaginal Delivery The patient feels well. The patient denies emotional concerns. Pain is well controlled with currentmedications. Urinary output is adequate. The patient is ambulating well. The patient is tolerating a normal diet. Patient reports flatus yes. The baby is admitted to NICU/SCN Baby is feeding via Information for the patient's : Lobo Taveras [[id number]] Feeding Type: Formula Objective: Vital signs in last 24 hours: Temp: [97.6 F (36.4 C)-98.2 F (36.8 C)] 98.1 F (36.7 C) Heart Rate: [60-88] 88 Resp: [14-16] 14 BP: (103-127)/(66-74) 116/66 General: alert, appears stated age and cooperative Bowel Sounds: active Lochia: appropriate Uterine Fundus: firm Perineum: intact DVT Evaluation: No evidence of DVT seen on physical exam. María Arellano MD 01/21/2021 11:13 AM * María Arellano MD - 01/20/2021 9:27 AM EDT Vaginal Delivery Progress Note Assessment/Plan: Status post Vaginal Delivery: Doing well Continue current care. Subjective: Day 1: Vaginal Delivery The patient feels well. The patient denies emotional concerns. Pain is well controlled with currentmedications. Urinary output is adequate. The patient is ambulating well. The patient is tolerating a normal diet. Patient reports flatus yes. The baby is admitted to NICU/SCN Baby is feeding via Information for the patient's : Lobo Taveras [[id number]] Feeding Type: Formula Objective: Vital signs in last 24 hours: Temp: [97.8 F (36.6 C)-98.4 F (36.9 C)] 97.9 F (36.6 C) Heart Rate: [62-110] 62 Resp: [14-18] 14 BP: (100-130)/(62-77) 115/72 General: alert, appears stated age and cooperative Bowel Sounds: active Lochia: appropriate Uterine Fundus: firm Perineum: intact DVT Evaluation: No evidence of DVT seen on physical exam. María Arellano MD 01/20/2021 9:27 AM documented in this encounter Additional Source Comments INFORMATION SOURCE (unrecogn ized section and content) DATE CREATED AUTHOR AUTHOR'S ORGANIZ ATION 05/18/2018 [facility] DATE CREATED AUTHOR AUTHOR'S ORGANIZ ATION 01/26/2021 [facility] DATE CREATED AUTHOR AUTHOR'S ORGANIZ ATION 07/15/2021 [facility] DATE CREATED AUTHOR AUTHOR'S ORGANIZ ATION 07/10/2023 [facility] DATE CREATED AUTHOR AUTHOR'S ORGANIZ ATION 10/15/2023 [facility] Reason for Visit (unrecogniz ed section and content) Reason Comments Facial Swelling swelling to right si de of face, states it got bad last night , pt has a known bad tooth , rates pain 8/10, temp is 98.1F oral, denies swallowing diff. or SOB Reason Comments Cough reports cough x3 day s Reason Comments Vaginal Bleeding Delivered in squad Status Reason Specialty Diagnoses / Procedures Referre d By Contact Referred To Contact Diagnoses Vaginal delivery Delivery normal Reason Onset Date Comments Yearly Exam Gardasil Injection 04/03/2023 Reason Comments Colposcopy Specialty Diagnoses / Procedures Referred By Oneida llanos Referred To Contact [facility] Diagnoses 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) Procedures COLPOSCOPY COLPOSCOPY CERVIX BX CERVIX & ENDOCRV CURRETAGE Colette Driscoll, BUSINESS RELATIONS MANAGER.DOMESTIC HOUSEKEEPER [address] [place] [place] [address] [facility] [address] [place] [address] Referral ID Status Reason Start Date Expiration Date V isits Requested Visits Authorized [id number] Closed Auto-Generate d Referral 04/13/2023 04/12/2024 1 1 Reason Comments Results Reason Comments Guest Services Agent - Other Initial OB MECHELLE marie Reason Comments Patient Update Yousuf Barboza, DO - 11/08/2019 9:42 PM Caitlin Rodriguez RN - 11/08/2019 9:26 PM Dre Nava MD - 09/26/2020 6:00 AM Shayy Rodriguez RN - 09/26/2020 5:57 AM EST ED Notes (unrecognized secti on and content) ED PROVIDER NOTE [facility] EMERGENCY DEPARTMENT NAME: Shon Taveras AGE: 23 y.o. : 1995 VISIT DATE: 11/08/2019 CSN: [id number] PCP: Physician No Chief Complaint Patient presents with Fall I fell on my left elbow History provided by: Patient Fall The accident occurred less than 1 hour ago. She fell from a height of 3 to 5 ft. Impact surface: Heart table edge. Past Medical History: Diagnosis Date Anxiety Cholelithiasis History of drug abuse (HCC) Oral herpes Panic Attacks Seizures (HCC) fever induced at 2yo Varicella vaccine Past Surgical History: Procedure Laterality Date WISDOM TOOTH EXTRACTION 03/13/2017 Family History Problem Relation Age of Onset Breast cancer Paternal Grandmother Diabetes Paternal Grandmother Skin cancer Paternal Grandmother Muscular dystrophy Other Social History Socioeconomic History Marital status: Single Spouse name: Not on file Number of children: Not on file Years of education: Not on file Highest education level: Not on file Occupational History Not on file Social Needs Financial resource strain: Not on file Food insecurity Worry: Not on file Inability: Not on file Transportation needs Medical: Not on file Non-medical: Not on file Tobacco Use Smoking status: Current Every Day Smoker Smokeless tobacco: Never Used Substance and Sexual Activity Alcohol use: No Drug use: Yes Types: Subutex Comment: history of percocet abuse, clean since 2015, taking subutex since Sexual activity: Yes Partners: Male Lifestyle Physical activity Days per week: Not on file Minutes per session: Not on file Stress: Not on file Relationships Social connections Talks on phone: Not on file Gets together: Not on file Attends yarsanism service: Not on file Active member of club or organization: Not on file Attends meetings of clubs or organizations: Not on file Relationship status: Not on file Other Topics Concern Not on file Social History Narrative Not on file Previous Medications Medication Sig buprenorphine HCl (SUBUTEX) 8 mg tablet prenat.vits,wilmar,cjt-lgip-xwsru ( VITAMIN) Tab Take 1 tablet by mouth daily. (Patient not taking: Reported on 11/08/2019 .) No Known Allergies Review of Systems Musculoskeletal: Elbow pain All other systems reviewed and are negative. Patient Vitals for the past 24 hrs: BP Temp Pulse Resp SpO2 Height Weight 11/08/19 2124 (!) 142/76 98.3 F (36.8 C) (!) 102 (!) 19 99 % 5' 9 63.5 kg (140 lb) Physical Exam Vitals signs and nursing note reviewed. Exam conducted with a candy cutter machine present. Constitutional: Appearance: Normal appearance. She is normal weight. HENT: Head: Normocephalic and atraumatic. Right Ear: External ear normal. Left Ear: External ear normal. Mouth/Throat: Mouth: Mucous membranes are moist. Eyes: Pupils: Pupils are equal, round, and reactive to light. Neck: Musculoskeletal: Normal range of motion and neck supple. Cardiovascular: Rate and Rhythm: Normal rate. Pulmonary: Effort: Pulmonary effort is normal. Abdominal: Comments: No abdominal pain complaint Genitourinary: Comments: No CVA pain complaint Musculoskeletal: Comments: Left elbow slightly tender on lateral malleolus she can flex and extend the elbow without difficulty Skin: General: Skin is warm and dry. Capillary Refill: Capillary refill takes less than 2 seconds. Neurological: Mental Status: She is alert. Comments: NIHSS 0 Psychiatric: Mood and Affect: Mood normal. Behavior: Behavior normal. Laboratory & Radiographic Imaging (if done): No results found for this visit on 11/08/19. XR Elbow Left 3+ Views (Standard) (Results Pending) Procedures MDM The patient has been informed that they may have pre-hypertension or hypertension based on a blood pressure reading in the Emergency Department. I recommend that the patient call the primary care provider listed on their discharge instructions or a physician of their choice as soon as possible to arrange follow-up in the next 4 weeks for further evaluation of possible pre-hypertension or hypertension. . Clinical Impression: No diagnosis found. ED Disposition None Follow-up Information Follow-up information has not been specified. Contact information for after-discharge care Follow-up information has not been specified. Yousuf Barboza DO 11/08/19 2144 Pt presents with left arm pain after a fall. Pt states she fell and hit her arm on a table then landed on her bottom. Pt denies hitting head, denies LOC documented in this encounter DEPARTMENT OF EMERGENCY MEDICINE CHIEF COMPLAINT Cough (reports cough x3 days) MARZENA Taveras is a 24 y.o. female who presents with a few days of cough, wheeze, and shortness of breath. Patient states I get bronchitis this time of year every year. She is 21 weeks . No fever. No vomiting. No chest pain. She states she gets some mild shortness of breath when she coughs. She is a smoker. REVIEW OF SYSTEMS Review of Systems See history of present illness. PAST MEDICAL HISTORY No past medical history on file. SURGICAL HISTORY No past surgical history on file. CURRENT MEDICATIONS Current Facility-Administered Medications Medication Dose Route Frequency Provider Last Rate Last Admin albuterol (VENTOLIN HFA) inhaler 2 puff 2 puff Inhalation Q6H PRN Dre Juares MD azithromycin (ZITHROMAX) tablet 500 mg 500 mg Oral Once Dre Juares MD predniSONE (DELTASONE) tablet 40 mg 40 mg Oral Once Dre Juares MD Current Outpatient Medications Medication Sig Dispense Refill promethazine 25 MG tablet Take 25 mg by mouth every 6 hours as needed for Nausea. buprenorphine 8 MG sublingual tablet ibuprofen 800 MG tablet Take 1 tablet by mouth every 8 hours as needed for Moderate Pain. 30 tablet 0 ALLERGIES No Known Allergies FAMILY HISTORY No family history on file. SOCIAL HISTORY Social History Socioeconomic History Marital status: Single Spouse name: Not on file Number of children: Not on file Years of education: Not on file Highest education level: Not on file Occupational History Not on file Social Needs Financial resource strain: Not on file Food insecurity Worry: Not on file Inability: Not on file Transportation needs Medical: Not on file Non-medical: Not on file Tobacco Use Smoking status: Current Every Day Smoker Smokeless tobacco: Never Used Substance and Sexual Activity Alcohol use: Not Currently Drug use: Not Currently Sexual activity: Not on file Lifestyle Physical activity Days per week: Not on file Minutes per session: Not on file Stress: Not on file Relationships Social connections Talks on phone: Not on file Gets together: Not on file Attends yarsanism service: Not on file Active member of club or organization: Not on file Attends meetings of clubs or organizations: Not on file Relationship status: Not on file Intimate partner violence Fear of current or ex partner: Not on file Emotionally abused: Not on file Physically abused: Not on file Forced sexual activity: Not on file Other Topics Concern Not on file Social History Narrative Not on file PHYSICAL EXAM BP 126/72 Pulse 109 Temp 97.9 F (36.6 C) (Oral) Resp 16 Smoking Status Current Every Day Smoker Physical Exam The patient is well-developed, well-nourished, and in no acute distress. Head is atraumatic and normocephalic. Pupils are equal and reactive. Face is symmetric. Mucous membranes are moist. Neck is supple. Heart is regular rate and rhythm. Lungs have mild wheezing. Abdomen is nontender. Skin is warm and dry. Extremities are warm and well perfused and without acute deformity. Neurologically, the patient is awake, alert, and without acute deficit. Psychiatrically, the patient is calm and cooperative. ED COURSE & MEDICAL DECISION MAKING Patient has some mild wheezing and a bronchitic cough. She will be treated with an albuterol inhaler and it will be discharged home with her. I will start her on some prednisone and Zithromax as well. She will follow-up with her primary care provider or OB provider. She is in agreement with this plan of care. Dre Juares MD 09/26/20 0601 TANO Juares states patient does not need to be on isolation at this time. TANO Juares at [facility]. Pt reports SOB only while actively coughing Bed: E004 Expected date: Expected time: Means of arrival: Comments: Covid clean 0010 documented in this encounter ED PROVIDER NOTE [facility] EMERGENCY DEPARTMENT NAME: Shon Taveras AGE: 25 y.o. : 1995 VISIT DATE: 01/19/2021 CSN: [id number] PCP: Physician No No chief complaint on file. HPI Patient is a 25-year-old female who is brought to the ED by EMS for precipitous delivery. In The ED patient is awake alert she states she is 38 weeks she started having contraction few hours ago and she called the EMS on route to the ED her water broke And she had a spontaneous vaginal delivery of a female born at 1712 With no complications. SENIOR DIRECTOR CREATIVE SERVICES Dr. De León and lab asst Dr. Burgos immediately both came to evaluate the patient and they have been transferred to labor and delivery further management. Past Medical History: Diagnosis Date Anxiety Cholelithiasis History of drug abuse (HCC) Oral herpes Panic Attacks Seizures (HCC) fever induced at 2yo Varicella vaccine Past Surgical History: Procedure Laterality Date WISDOM TOOTH EXTRACTION 03/13/2017 Family History Problem Relation Age of Onset Breast cancer Paternal Grandmother Diabetes Paternal Grandmother Skin cancer Paternal Grandmother Muscular dystrophy Other Social History Socioeconomic History Marital status: Single Spouse name: Not on file Number of children: Not on file Years of education: Not on file Highest education level: Not on file Occupational History Not on file Social Needs Financial resource strain: Not on file Food insecurity Worry: Not on file Inability: Not on file Transportation needs Medical: Not on file Non-medical: Not on file Tobacco Use Smoking status: Current Every Day Smoker Smokeless tobacco: Never Used Substance and Sexual Activity Alcohol use: No Drug use: Yes Types: Subutex Comment: history of percocet abuse, clean since 2015, taking subutex since Sexual activity: Yes Partners: Male Lifestyle Physical activity Days per week: Not on file Minutes per session: Not on file Stress: Not on file Relationships Social connections Talks on phone: Not on file Gets together: Not on file Attends yarsanism service: Not on file Active member of club or organization: Not on file Attends meetings of clubs or organizations: Not on file Relationship status: Not on file Other Topics Concern Not on file Social History Narrative Not on file Previous Medications Medication Sig buprenorphine HCl (SUBUTEX) 8 mg tablet prenat.vits,wilmar,wvn-vtup-rqovo ( VITAMIN) Tab Take 1 tablet by mouth daily. (Patient not taking: Reported on 11/08/2019 .) No Known Allergies Review of Systems All other systems reviewed and are negative. Patient Vitals for the past 24 hrs: BP Resp 01/19/21 1722 127/77 18 Physical Exam Vitals signs and nursing note reviewed. Constitutional: Comments: Sitting up in bed awake alert HENT: Head: Normocephalic and atraumatic. Abdominal: General: Abdomen is flat. Genitourinary: Comments: Placenta has yet to be delivered. Neurological: General: No focal deficit present. Mental Status: She is alert. Laboratory & Radiographic Imaging (if done): No results found for this visit on 01/19/21. No orders to display Procedures MDM Patient is a 25-year-old brought to the ED by EMS for spontaneous precipitous vaginal delivery of a female born at 1712 on route to the ED with no complication. Both patient and baby have been taken upstairs to labor and delivery in stable condition. The patient has been informed that they may have pre-hypertension or hypertension based on a blood pressure reading in the Emergency Department. I recommend that the patient call the primary care provider listed on their discharge instructions or a physician of their choice as soon as possible to arrange follow-up in the next 4 weeks for further evaluation of possible pre-hypertension or hypertension. . Clinical Impression: 1. Vaginal delivery ED Disposition ED Disposition Condition Comment Send to L&D Follow-up Information Follow-up information has not been specified. Contact information for after-discharge care Follow-up information has not been specified. Melyssa Campbell MD 01/19/21 1737 PATIENT TO LABOR AND DELIVERY WITH DR. ARELLANO, LABOR AND DELIVERY NURSES, THIS NURSE AND BEATA MIN. DR. OSIEL LOVETT. LABOR AND DELIVERY NURSES [facility]. RT [facility]. PATIENT ARRIVES BY EMS PATIENT 38 WEEKS SECOND . PER EMS PATIENT'S WATER BROKE IN SQUAD. PER EMS PLACENTA WAS NOT DELIVERED. PER EMS WAS BORN AT 1712. Bed: 12 Expected date: Expected time: Means of arrival: Comments: SECOND documented in this encounter María Arellano MD - 01/19/2021 5:41 PM EDT H&P Notes (unrecognized sect ion and content) OB HISTORY AND PHYSICAL Patient Name: Shon Taveras MR #: [id number] ASSESSMENT AND PLAN: Shon Taveras is a 25 y.o. female female @ 38+1 wks admitted to L&D after precipitous delivery in ambulance. Transfer to L&D Room for delivery of placenta and immediate care. H/o of drug use - continue subutex. Pos for Benzos and MJ during - urine DOA ordered. SUBJECTIVE: Shon Taveras is a 25 y.o. female female @38+1 wks admitted to L&D after precipitous delivery in ambulance. Pt states that she started having contractions at 4 PM. En route to the ER in the ambulance, her water broke and she delivered a baby girl. Review of Systems Constitutional: Denies fevers/chills, Denies fatigue Eyes: Denies Vision changes Resp: Denies shortness of breath, Denies wheezing, Denies cough Cardio: Denies chest pain, Denies peripheral edema, Denies palpitations Gl: Denies nausea, Denies vomiting, Admits to abd pain, Denies diarrhea, Denies constipation, Denies bloating/distension : Denies dysuria, Admits to vaginal bleeding, Admits to pelvic pain Neuro: Denies headaches, Denies dizziness Endo: Denies weight changes, Denies heat/cold intolerance MSK: Denies leg swelling, Admits to back pain, Denies limb pain Heme: Denies hx of eeding/clotting disorders, Denies excessive bruising HISTORY: ObHx: OB History Para Term AB Living 2 2 2 0 0 1 SAB TAB Ectopic Multiple Live Births 0 0 0 0 1 # Outcome Date GA Lbr Berry/2nd Weight Sex Delivery Anes PTL Lv 2 Term 01/19/21 F Vag-Spont N WILLIAM 1 Term 01/16/18 39w2d Vag-Spont Comments: delivered in [place] GynHx: No LMP recorded. PMH: Past Medical History: Diagnosis Date Anxiety Cholelithiasis History of drug abuse (HCC) Oral herpes Panic Attacks Seizures (HCC) fever induced at 2yo Varicella vaccine PSH: Past Surgical History: Procedure Laterality Date WISDOM TOOTH EXTRACTION 03/13/2017 FamHx: Family History Problem Relation Age of Onset Breast cancer Paternal Grandmother Diabetes Paternal Grandmother Skin cancer Paternal Grandmother Muscular dystrophy Other Soc Hx: Social History Socioeconomic History Marital status: Single Spouse name: Not on file Number of children: Not on file Years of education: Not on file Highest education level: Not on file Occupational History Not on file Social Needs Financial resource strain: Not on file Food insecurity Worry: Not on file Inability: Not on file Transportation needs Medical: Not on file Non-medical: Not on file Tobacco Use Smoking status: Current Every Day Smoker Smokeless tobacco: Never Used Substance and Sexual Activity Alcohol use: No Drug use: Yes Types: Subutex Comment: history of percocet abuse, clean since 2016, taking subutex since Sexual activity: Yes Partners: Male Lifestyle Physical activity Days per week: Not on file Minutes per session: Not on file Stress: Not on file Relationships Social connections Talks on phone: Not on file Gets together: Not on file Attends yarsanism service: Not on file Active member of club or organization: Not on file Attends meetings of clubs or organizations: Not on file Relationship status: Not on file Other Topics Concern Not on file Social History Narrative Not on file Allergies: No Known Allergies Home Medications: Prior to Admission medications Medication Sig Start Date End Date Taking? Authorizing Provider buprenorphine HCl (SUBUTEX) 8 mg tablet 10/24/17 Historical Provider, MD turner.vits,wilmar,xjy-qcog-cahbh ( VITAMIN) Tab Take 1 tablet by mouth daily. Patient not taking: Reported on 11/08/2019 . 07/09/17 Lisa Ojeda, DOMESTIC HOUSEKEEPER OBJECTIVE: Resp: [18] 18 BP: (127)/(77) 127/77 General: alert, well-appearing, no acute distress Neuro: No focal neurologic deficits. Interactive. Appropriate. HEENT: Normocephalic, EOMI. CV: Reg rate. negative peripheral edema. Pulm: Non-labored reg breaths. No accessory muscle use. Abd: soft, nontender, nondistended, no hepatosplenomegaly, no mass, normal bowel sounds Vulva: normal Vagina: normal mucosa Cervix: deferred Uterus: U-1, firm, placenta still in place Adnexa: not evaluated Psych: Normal Ext: nontender, no deformity, full range of motion Labs: Lab Results Component Value Date WBC 13.3 (H) 01/17/2018 HGB 12.3 01/17/2018 HCT 36.2 01/17/2018 EXTMCV 86.0 01/17/2018 PLT 168 01/17/2018 Lab Results Component Value Date BUN 10 01/16/2018 CREATININE 0.55 01/16/2018 Lab Results Component Value Date PREGUR Positive (A) 07/09/2017 Imaging None María Arellano MD 01/19/2021 5:41 PM documented in this encounter Aisha Rivera MSW LSW - 01/21/2021 10:34 AM EDT Consult Notes (unrecognized section and content) Associated Order(s): IP CONSULT TO CARE MANAGEMENT COMPLEX DISCHARGE Date: 01/21/2021 Time: 10:34 AM Patient Name: Shon Taveras Date of : 1995 Sex: Female Initial assessment completed as chart review. Pt consult placed for Positive for Benzos and THC on admission , Pos for Benzos and MJ in November - states has anxiety and will take a xanax occasionally but doesn't have them prescribed to her or take regularly. Call placed to [place] in screening with Nikki Castro CPS with update on mother and baby's urine being positive for THC and unprescribed xanax. Meconium continues to be pending and CPS to be updated. Assessment with mother to be completed. [facility] following. documented in this encounter Quick Note - Michelle Medina RN - 01/21/2021 12:31 PM EDTQuick Note - Michelle Medina RN - 01/21/2021 12:09 PM EDTPlan of Care - Michelle Medina RN - 01/21/2021 9:05 AM EDT Miscellaneous Notes (unrecog nized section and content) Patient ambulated out to car for discharge home stable with all belongings. Discharge instructions discussed as well as prescriptions. Verbalized understanding. POC updated all goals met prior to discharge POC updated. Pain controlled with meds. No s/s of fluid imbalance or infection. Planning for discharge. POC reviewed. Ongoing education. Pain well controlled with motrin. No s/s of infection. POC reviewed. Pt maintaining stable vital signs and ambulates frequently. Pt attends to needs, good bonding is noted. POC explained Problem: Actual or potential alteration in health Goal: Absence of healthcare acquired conditions Outcome: Partially Met Goal: Knowledge of Interdisciplinary Plan of Care Outcome: Partially Met Goal: Knowledge of Enviroment Outcome: Partially Met Problem: Constipation Goal: Bowel elimination within specified parameters Outcome: Partially Met Problem: Fluid Volume Imbalance, Risk of Goal: Absence of imbalanced fluid volume signs and symptoms Outcome: Partially Met Goal: Balanced intake and output Outcome: Partially Met Problem: Infection - Risk of, Infection Goal: Absence of infection signs and symptoms Outcome: Partially Met Problem: Pain Goal: Manage acute pain Outcome: Partially Met Goal: Manage chronic pain Outcome: Partially Met Goal: Reduced pain sensation Outcome: Partially Met Goal: Achievement of comfort function goal Outcome: Partially Met Problem: Plan for Discharge Goal: Knowledge of discharge plan and instructions Outcome: Partially Met Vaginal Delivery Note Diagnosis: Principal Problem: Delivery normal Mother's Information IO Blood Loss 01/19/21 0512 - 01/19/21 1749 None Parlett, Baby Girl Shon [[id number]] Delivery Anesthesia No data filed Operative Delivery No data filed Shoulder Dystocia No data filed [place] Presentation No data filed [place] Information date/time: 01/19/211711 Gender: Female Delivery type: Vaginal, Precipitous Delivery location: Outside facility Provider Present: Indication Initial disposition: Routine NB Care ?: No Details: Delivery Providers Other personnel: Provider Role Covering Attending Resident Reel Hooker Delivery Nurse Registered Nurse Delivery Assist Nurse Practitioner Cord Vessels: 3 vessels Complications: None Delayed cord clamping?: Yes Cord clamped date/time: 01/19/20211718 Cord blood obtained?: No Cord segment obtained?: No Gases sent?: No Placenta No data filed Apgars Living status: Living Scoring Shah: 0 1 2 Skin color Blue or pale Acrocyanotic Completely pink Heart rate Absent <100 bpm >100 bpm Reflex irritability No response Grimace Cry or active withdrawal Muscle tone Limp Some flexion Active motion Respiratory effort Absent Weak cry; hypoventilation Good, crying Skin color: Heart rate: Reflex irritability: Muscle tone: Respiratory effort: Total: 1 Minute: 1 2 2 2 2 9 5 Minute: 1 2 2 2 2 9 10 Minute: 1 2 2 2 2 9 15 Minute: 20 Minute: [place] Measurements Weight: Lacerations No data filed Other Procedures No data filed Vaginal Delivery Note Called to room by RN, patient had in the ambulance en route to the hospital after SROM. Placenta still in and cord had been clamped and cut. Pt transferred to L&D room. Placenta delivered intact with 3v cord. No lacerations noted. Both mom and baby doing well. María Arellano MD 01/19/2021 5:[address] Arellano notified via this RN personal cell phone of pt in squad delivering baby. RN requested MD to come to ED and Labor and delivery nurses and Nursery will meet there. Will be in documented in this encounter Source Comments (unrecognize d section and content) In the event this informatio n is protected by the Federal Confidentiality of Alcohol and Drug Abuse Patient Records regulations: The Federal rules restrict any use of the information to criminally investigate or prosecute any alcohol or drug abuse patient.[facility] Hospital[facility] the event this information is protected by the Federal Confidentiality of Alcohol and Drug Abuse Patient Records regulations: The Federal rules restrict any use of the information to criminally investigate or prosecute any alcohol or drug abuse patient.[facility] HospitalIn the event this information is protected by the Federal Confidentiality of Alcohol and Drug Abuse Patient Records regulations: The Federal rules restrict any use of the information to criminally investigate or prosecute any alcohol or drug abuse patient.[facility] HospitalIn the event this information is protected by the Federal Confidentiality of Alcohol and Drug Abuse Patient Records regulations: The Federal rules restrict any use of the information to criminally investigate or prosecute any alcohol or drug abuse patient.[facility] HospitalIn the event this information is protected by the Federal Confidentiality of Alcohol and Drug Abuse Patient Records regulations: The Federal rules restrict any use of the information to criminally investigate or prosecute any alcohol or drug abuse patient.[facility] HospitalIn the event this information is protected by the Federal Confidentiality of Alcohol and Drug Abuse Patient Records regulations: The Federal rules restrict any use of the information to criminally investigate or prosecute any alcohol or drug abuse patient.[facility] FOR RECORDS PERTAINING TO PATIENTS WHO ARE OR HAVE BEEN ENROLLED IN A CHEMICAL DEPENDENCY/SUBSTANCEABUSE PROGRAM, SOME INFORMATION MAY BE OMITTED. This clinical summary was aggregated from multiple sources. Caution should be exercised in using it in the provision of clinical care. This summary normalizes information from multiple sources, and as a consequence, information in this document may materially change the coding, format and clinical context of patient data. In addition, data may be omitted in some cases. CLINICAL DECISIONS SHOULD BE BASED ON THE PRIMARY CLINICAL RECORDS. [facility] [employer] [facility]. provides no warranty or guarantee of the accuracy or completeness of information in this document.
[2023-11-09 10:23] LABS: Glucose Challenge Gest 1H 50g 62 mg/dL (70-140)
[2023-11-09 10:58] LABS: HIV - WCH Non-Reactive (Nonreactive); Syphilis Antibodies Non-reactive
[2023-11-09 16:16] LABS: Amphetamine Urine VISTA NEGATIVE (<1000 ng/mL); Barbiturate Urine VISTA NEGATIVE (< 200 ng/mL); Benzodiazepine Urine VISTA POSITIVE (< 200 ng/mL); Cocaine Urine VISTA NEGATIVE (< 300 ng/mL); Ecstacy Urine VISTA NEGATIVE (< 500 ng/mL); Methadone Urine VISTA NEGATIVE (< 300 ng/mL); PCP Urine VISTA NEGATIVE (< 25 ng/mL); THC Urine VISTA NEGATIVE (< 50 ng/mL); Vista UDS pH Range 6
== END | disposition home or self-care (01) ==
PROVIDERS: Nurse Practitioner Women's Health; Referring Provider Registered Nurse; Visit Provider Registered Nurse
DX: O99.320 Drug use complicating pregnancy, unspecified trimester (principal); F12.90 Cannabis use, unspecified, uncomplicated; Z3A.00 Weeks of gestation of pregnancy not specified
CPT/HCPCS: 36415; 80307; 82950; 85025; 86703; 86780; 86850; 86900; 86901

== ENCOUNTER → 2023-12-17 | Outpatient (CLI) | payer MEDICAID, SELFPAY ==
--- NOTE | 2023-12-17 13:19 | US_ITS ---
STUDY: SECOND AND THIRD TRIMESTER OBSTETRICAL ULTRASOUND - LIMITED REASON FOR EXAM: Female, 27 years old well being -- 32 Weeks LMP: 05/07/2023 PRIOR ULTRASOUND: None. TECHNIQUE: Transabdominal TECHNICAL QUALITY: Adequate. FINDINGS: There is a single intrauterine fetus. The fetus is in a cephalic presentation. There is demonstrated cardiac activity with a heart rate of 136 bpm. There is a normal amniotic fluid volume. The largest amniotic fluid pocket measures 4.8 cm. The amniotic fluid index (NARINDER) is 13.9 cm. The placenta is fundal/posterior/left lateral. Placenta is not low-lying. There are Grade 1 placental changes. Several placental lakes are noted. The cervix measures 3.6 cm in length. BIOMETRY: BPD: 7.7: 30 weeks, 6 days HC: 28.4: 31 weeks, 1 days AC: 25.6: 29 weeks, 5 days FL: 5.8: 30 weeks, 3 days Age by LMP: 32 weeks, 0 days. RICK by LMP: 02/11/2024. age by prior US: weeks, days. RICK by prior US: . age by current US: 30 weeks, 4 days. RICK by current US: 02/21/2024. Estimated weight: 1533 grams, +/- 2:30 grams, 5.3 percentile. Gender: US/OB Limited With Biometrics IMPRESSION: Single live fetus in a vertex presentation. survey not performed on this exam. Placenta is grade 1 and is not low-lying. Several placental lakes incidentally noted. Cervix is closed. age by current US: 30 weeks, 4 days. RICK by current US: 02/21/2024. Estimated weight: 1533 grams, +/- 2:30 grams, 5.3 percentile. Electronically Signed: Sami Frazier MD at 19:59 EST ,
--- NOTE | 2023-12-17 14:22 | US_ITS ---
STUDY: OBSTETRICAL ULTRASOUND - BIOPHYSICAL PROFILE REASON FOR EXAM: Female, 27 years old IUGR LMP: 05/07/2023 PRIOR ULTRASOUND: None. TECHNIQUE: Transabdominal TECHNICAL QUALITY: Adequate. FINDINGS: There is a single intrauterine fetus. The fetus is in a cephalic presentation. There is demonstrated cardiac activity with a heart rate of 135 bpm. There is a normal amniotic fluid volume. The largest amniotic fluid pocket measures 6.1 cm. The amniotic fluid index (NARINDER) is 14.0 cm. Age by LMP: 32 weeks, 0 days. RICK by LMP: 02/11/2024. age by current US: 30 weeks, 4 days. RICK by current US: 02/21/2024. BIOPHYSICAL PROFILE: Breathing Movements (FBM): 2 Gross Body Movements (GBM): 2 Tone (FT): 2 Amniotic Fluid Volume (AFV): 2 TOTAL SCORE: / 8 US/Biophysical Prof W/O Non Stres IMPRESSION: Normal biophysical profile of 06/09. Electronically Signed: Sami Frazier MD at 20:01 EST ,
--- OUTSIDE RECORDS SUMMARY | 2023-12-17 19:26 | XMS RPT_ITS | CCD ---
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 investigate or prosecute any alcohol or drug abuse patient.[facility] FOR RECORDS PERTAINING TO PATIENTS WHO ARE [...] BE BASED ON THE PRIMARY CLINICAL RECORDS. [facility] [employer] [facility]. provides no warranty or guarantee of the accuracy or completeness of information in this document.
== END | disposition home or self-care (01) ==
LOC: OPUS 13:19
PROVIDERS: Referring Provider Nurse Practitioner Women's Health; Visit Provider Nurse Practitioner Women's Health
DX: O09.70 Supervision of high risk pregnancy due to social problems, unspecified trimester (principal); O43.102 Malformation of placenta, unspecified, second trimester; Z3A.00 Weeks of gestation of pregnancy not specified
CPT/HCPCS: 76816; 76819

== ENCOUNTER → 2023-12-22 | Outpatient (CLI) | payer MEDICAID, SELFPAY ==
--- NOTE | 2023-12-22 12:36 | US_ITS ---
STUDY: OBSTETRICAL ULTRASOUND - BIOPHYSICAL PROFILE REASON FOR EXAM: Female, 28 years old wellbeing -- LMP: May 07, 2023. PRIOR ULTRASOUND: Comparison is made with prior study dated December 17, 2023. TECHNIQUE: Transabdominal TECHNICAL QUALITY: Adequate. FINDINGS: There is a single intrauterine fetus. The fetus is in a cephalic presentation. There is demonstrated cardiac activity with a heart rate of 135 bpm. There is a normal amniotic fluid volume. The largest amniotic fluid pocket measures 4.2 cm. The amniotic fluid index (NARINDER) is 12.9 cm. The placenta is fundal in location. There are Grade 1 placental changes. Age by LMP: 32 weeks, 5 days. RICK by LMP: February 11, 2024. age by prior US: 31 weeks, 3 days. RICK by prior US: February 21, 2024. Gender: Female BIOPHYSICAL PROFILE: Breathing Movements (FBM): 0 Gross Body Movements (GBM): 2 Tone (FT): 2 Amniotic Fluid Volume (AFV): 2 TOTAL SCORE: 6 / 8 US/Biophysical Prof W/O Non Stres IMPRESSION: biophysical profile of 6/8.. The ordering physician was notified. Electronically Signed: Adam Lan MD at 14:03 EST ,
== END | disposition home or self-care (01) ==
LOC: US 12:36
PROVIDERS: Referring Provider Nurse Practitioner Women's Health; Visit Provider Nurse Practitioner Women's Health
DX: O43.102 Malformation of placenta, unspecified, second trimester (principal); Z3A.00 Weeks of gestation of pregnancy not specified
CPT/HCPCS: 76819

== ENCOUNTER → 2024-01-11 | Outpatient (CLI) | payer MEDICAID, SELFPAY | END | disposition home or self-care (01) | PROVIDERS: Referring Provider Nurse Practitioner; Visit Provider Nurse Practitioner | DX: Z36.85 Encounter for antenatal screening for Streptococcus B (principal) | CPT/HCPCS: 87081 ==

== ENCOUNTER 2024-06-18 16:22 | Emergency (ER) | payer MEDICAID, SELFPAY ==
[2024-06-18 16:23] VITALS: BP 127/93; PULSE 88; RESP 16; TEMP 37.1; O2SAT 100; BMI 21.2
--- NOTE | 2024-06-18 17:01 | CT_ITS ---
EXAM: CT ANGIOGRAPHY CHEST, ABDOMEN AND PELVIS WITH INTRAVENOUS CONTRAST CLINICAL INDICATION: chest pain -- r/o dissection TECHNIQUE: Helically acquired angiography images were obtained of the chest, abdomen and pelvis with intravenous contrast. This CT exam was performed using one or more of the following dose reduction techniques: automated exposure control, adjustment of the mA and/or kV according to patient size, and/or use of iterative reconstruction technique. MIP reconstructed images were created and reviewed. CONTRAST: IV 75mL Isovue-370 COMPARISON: No relevant prior studies available. FINDINGS: VASCULATURE: AORTA: The aorta is normal in caliber with no evidence of aneurysm, stenosis or dissection. PULMONARY ARTERIES: Unremarkable. Normal in caliber. No obvious central pulmonary embolism although this study was not performed with the pulmonary embolism protocol. GREAT VESSELS OF AORTIC ARCH: Unremarkable. Normal in caliber. No dissection. CELIAC TRUNK AND MESENTERIC ARTERIES: No acute findings. No occlusion or significant stenosis. No dissection. RENAL ARTERIES: No acute findings. No occlusion or significant stenosis. No dissection. ILIAC ARTERIES: No acute findings. No occlusion or significant stenosis. No dissection. CHEST: LUNGS AND PLEURAL SPACES: There is a calcified granuloma in the left lower lobe. No mass. No pleural effusion or thickening. No pneumothorax. HEART: Unremarkable. Heart size is normal. No pericardial effusion. MEDIASTINUM: Unremarkable. No mediastinal or hilar adenopathy. Esophagus is unremarkable. No hiatal hernia. THYROID: Unremarkable. No thyroid lesions. ABDOMEN: LIVER: Unremarkable. Homogeneous. No focal mass. GALLBLADDER AND BILE DUCTS: Unremarkable. No calcified gallstones. No gallbladder distention or wall edema. No intra- or extrahepatic biliary ductal dilation. PANCREAS: Unremarkable. No focal cystic or solid mass. SPLEEN: Unremarkable. Normal size without focal cystic or solid mass. ADRENALS: Unremarkable. No nodules. KIDNEYS AND URETERS: Unremarkable. Normal renal size and position. No hydronephrosis. STOMACH AND BOWEL: Unremarkable. No stomach or bowel distention. No focal inflammatory change. PELVIS: APPENDIX: No evidence of acute appendicitis. BLADDER: Unremarkable. REPRODUCTIVE: Unremarkable as visualized. No mass. CHEST, ABDOMEN and PELVIS: INTRAPERITONEAL SPACE: Unremarkable. No ascites or other fluid collection. No free air. BONES/JOINTS: Unremarkable. No suspicious lytic or blastic abnormality. SOFT TISSUES: Unremarkable. No discrete abdominal or pelvic wall hernia. LYMPH NODES: Unremarkable. No enlarged lymph nodes. CT/CTA Chst, Abd, Pel W and/or WO IMPRESSION: No acute findings in the visualized arteries of the chest, abdomen or pelvis. Electronically Signed: Phil Will MD at 19:21 EDT ,
--- NOTE | 2024-06-18 17:01 | EKG12_ITS ---
Test Reason : CP Blood Pressure : / mmHG Vent. Rate : 069 BPM Atrial Rate : 069 BPM P-R Int : 124 ms QRS Dur : 082 ms QT Int : 404 ms P-R-T Axes : -18 065 049 degrees QTc Int : 432 ms Normal sinus rhythm Normal ECG Confirmed by NORMAN HURD, ALFREDITO ([id number]), communications editor SHAHEED HUNTER ([id number]) on 06/24/2024 6:17:01 AM Referred By: Confirmed By:BALTAZAR AUSTIN MD
--- NOTE | 2024-06-18 17:06 | ED.RN ---
NO OLD EKGS
[2024-06-18 17:13] LABS: Absolute Lymphocyte Count 2.62 X10^3/uL (0.83-4.51); Absolute Neutrophil Count 3.2 X10^3/uL (2.0-7.7); Basophil# 0.04 X10^3/uL; Basophil% 0.6 % (0-1); Eosinophils% 1.6 % (0-5); Hematocrit 47.9 % (37-47); Hemoglobin 15.8 g/dL (12.0-15.0); Lymphocyte # 2.62 X10^3/ul (0.83-4.51); Lymphocyte % 41.7 % (19-41); Mean Corpuscular Hgb 26.8 pg (27.0-32.0); Mean Corpuscular Volume 81.3 fL (81-99); Mean Platelet Vol. 11.4 fl (6.2-12.0); Monocyte# 0.33 X10^3/uL; Monocyte% 5.3 % (0-10); NRBC Flagged by Analyzer 0 % (0-5); Neutrophil # 3.18 X10^3/uL (2.7-7.7); Neutrophil % 50.6 % (47-70); Platelet Count 242 K/mm3 (150-450); RBC Distribution Width CV 14.4 % (11.6-14.6); RBC Distribution Width SD 42.5 fl (35.1-43.9); Red Blood Count 5.89 M/mm3 (4.2-5.4); White Blood Count 6.3 K/mm3 (4.4-11.0)
[2024-06-18 17:14] VITALS: BP 104/74; PULSE 71; RESP 16; O2SAT 98
--- NOTE | 2024-06-18 17:15 | EDS_ITS ---
HPI History of Present Illness Chief Complaint: Chest Pain Informant: patient and spouse/S.O. Narrative Narrative: Patient reports over the last 4 to 5 days more frequent squeezing sensation in her mid chest causing mild dyspnea. Will have sharp pain into her back. Due to pain will have nausea and vomiting subsides when her symptoms improved. She states similar symptoms 7 years ago reported had concerns it was her gallbladder because she was then. She reported ultrasound performed however no reported gallstones. She is 4 months . She is concerned with similar symptoms. She states she does have worsening symptoms food approximate 30 minutes after. She denies any black or bloody stools. Denies any cough. She states grandmother side with MIs at a young age. She also reported grandmother had some sort of vascular abnormality that was rare. She states states no sudden heart at a young age that she is aware of in her family. Admits to tobacco history along with intermittent marijuana use. Denies hypertension, hyperlipidemia, diabetes. Denies recent travel, surgeries, or immobilizations. No history of PE or DVT. Prior Similar Symptoms: Yes and - (Gallbladder issues) CVD Risk Factors: Positive for Family History 1' </=55 and Smoking; Negative for Hypertension, Diabetes or Hypercholesterolemia PE Risk Factors: Negative for Recent Travel/Surgery, Recent Immobilization or Prior DVT or PE [facility] Medical History Abnormal Pap smear of cervix Anxiety History of narcotic addiction Home Medications ?Medication ?Instructions ?Recorded ?Last Taken ?Type buprenorphine HCl 8 mg sublingual 8 mg sublingual TID 07/13/23 Unknown History tablet clonazepam 1 mg tablet 1 mg PO DAILY 07/13/23 Unknown History gabapentin 300 mg capsule 600 mg PO TID 07/13/23 Unknown History Allergy/AdvReac Type Severity Reaction Status Date / Time duloxetine (From Cymbalta) Allergy Severe Anaphylaxis Verified 06/18/24 16:26 Surgical History No pertinent past surgical history Social History Smoking Status: Heavy Smoker (>10/day) Tobacco: How many years used: 6 alcohol intake: former substance use type: does not use and prescription drug ROS ROS ED Constitutional Constitutional ED: Denies chills, fever(s) or sweats Eyes Eyes: Denies change in vision ENT ENT ED: Denies dysphagia or sore throat Cardiovascular Cardiovascular: Reports chest pain; Denies leg edema, palpitations or racing heartbeat Respiratory/Chest Respiratory/Chest: Denies cough, dyspnea or dyspnea on exertion Gastrointestinal Gastrointestinal: Reports abdominal pain; Denies diarrhea, nausea or vomiting Genitourinary Genitourinary ED: Denies dysuria, hematuria or urinary frequency Musculoskeletal Musculoskeletal: Reports back pain; Denies extremity pain or neck pain Integumentary Denies rash or wounds Neurologic Neurologic: Denies headache(s), paresthesias or weakness EXAM Physical Exam Const Vital Signs: 06/18/24 16:23 06/18/24 17:14 06/18/24 18:00 Temperature 98.7 F Temperature Source Temporal Pulse Rate 88 71 66 Respiratory Rate 16 16 18 Blood Pressure 127/93 H 104/74 109/65 Blood Pressure Mean 104 84 79 Pulse Ox 100 98 97 Oxygen Delivery Method Room Air Room Air Room Air 06/18/24 18:49 06/18/24 20:00 06/18/24 21:00 Temperature Temperature Source Pulse Rate 66 67 62 Respiratory Rate 20 H 16 16 Blood Pressure 107/63 109/71 110/71 Blood Pressure Mean 77 83 84 Pulse Ox 96 98 98 Oxygen Delivery Method Room Air Room Air Positive well nourished and well developed Constitutional Narrative: Nontoxic, mild uncomfortable during exam. General Appearance ED: well developed HEENT Reports moist mucous membranes normocephalic and atraumatic Eyes EOMs intact bilaterally and conjunctivae normal General Eye ED: Yes normal appearance of both eyes Neck no lymphadenopathy and supple General: Negative for tenderness Chest Wall Chest: Negative for tenderness Resp normal respiratory effort and normal air movement Effort and Inspection: symmetric chest movement; Negative for respiratory distress Cardio regular rate, regular rhythm and no murmurs Peripheral Pulses: pulses 2+ throughout GI normal to inspection, nondistended, normoactive bowel sounds GI Narrative: Mild epigastric tenderness. Negative Ny's or McBurney's tenderness. Palpation: Negative for guarding or rebound tenderness present Back/Spine no CVA tenderness and no thoracic nor lumbar tenderness Extremity normal to inspection General Extremety ED: Negative for edema or tenderness General Extremity: Negative for edema Neuro oriented x3 and no sensory deficits noted Sensorium / Orientation: awake and alert Skin no rashes or lesions noted and no wounds MDM MDM MDM Narrative Medical decision making narrative: Interventions / MDM: Differential diagnosis: Symptomatic cholelithiasis Diagnosis considered but do not suspect: Cholecystitis with imaging negative clinically nontender right upper quadrant. Aortic dissection however image studies negative. My EKG interpretation: Sinus rate of 69, no ST changes. Imaging independently reviewed and interpreted by myself: CT angiogram chest abdomen pelvis: No dissection also read by radiologist. Right upper quadrant ultrasound: Cholelithiasis without signs of cholecystitis. External documents reviewed: N/A Test considered but not ordered:N/A ED course: Patient chest pain sharp pain in the back. Clinically no right upper quadrant pain for cholecystitis.. Slightly uncomfortable. EKG with no acute findings. However grandmother with some sort of vascular issues. Cardiac workup including a CT angiogram chest abdomen pelvis to rule out any dissection. She declines any pain medicines at this time. Patient workup transaminitis normal lipase. CT angiograms were negative for dissection. Right upper quadrant ultrasound positive for cholelithiasis with no signs of cholecystitis. Patient symptoms improved without intervention in the ED. Discussed likely biliary colic symptoms that she states were worsening symptoms 30 minutes after eating. I did discuss with on-call surgeon Dr. Ansari, patient currently symptom-free with findings with 4 months . She will follow-up in his office for outpatient discussion with intervention treatments. She will avoid greasy foods dairy foods and fatty foods. Return precaution discussed. All questions were answered. Re-evaluation: stable Disposition discussed with patient/family/significant other: Patient significant other Case discussed with consulting clinician: Surgery This note was generated with [employer] dictation software. It may contain incorrect words, spelling, and punctuation that were not noted in checking the note before signing. Lab Data Attestation: I reviewed the patient's lab results. Labs: Laboratory Results - last 24 hr 06/18/24 16:40 WBC 6.3 RBC 5.89 H Hgb 15.8 H Hct 47.9 H MCV 81.3 MCH 26.8 L MCHC 33.0 RDW Std Deviation 42.5 RDW Coeff of Daisy 14.4 Plt Count 242 MPV 11.4 Immature Gran % (Auto) 0.200 Neut % (Auto) 50.6 Lymph % (Auto) 41.7 H [place] % (Auto) 5.3 Eos % (Auto) 1.6 Baso % (Auto) 0.6 Absolute Neuts (auto) 3.2 Absolute Lymphs (auto) 2.62 Nucleated RBC % 0 Sodium 140 Potassium 3.6 Chloride 104 Carbon Dioxide 28.0 Anion Gap 8 BUN 10 Creatinine 0.73 Estim Creat Clear Calc 119.28 Est GFR (MDRD) Af Amer 122 Est GFR (MDRD) Non-Af 101 BUN/Creatinine Ratio 13.7 Glucose 101 Calcium 9.5 Total Bilirubin 1.70 H AST 170 H ALT 185 H Alkaline Phosphatase 168 H Total Protein 8.3 H Albumin 4.2 Globulin 4.1 Albumin/Globulin Ratio 1.0 Lipase 27 Serum , Qual NEGATIVE Radiography Diagnostic Testing: Clinical Impression(s) from Imaging Studies Chest/Abdomen/Pelvis CTA 06/18/24 17:01 IMPRESSION: No acute findings in the visualized arteries of the chest, abdomen or pelvis. Electronically Signed: Phil Will MD at 19:21 EDT , Gallbladder Ultrasound 06/18/24 17:55 IMPRESSION: Cholelithiasis with no sonographic evidence of cholecystitis. Electronically Signed: Phil Will MD at 19:22 EDT , Discharge Plan Triage Chief Complaint: Chest Pain ED Provider: Julian Brandt Dx/Rx/DC Orders Clinical Impression: Cholelithiases, Transaminitis, Abdominal pain Instructions: Abdominal Pain, Gallstones Dc Prescriptions: No Action gabapentin 300 mg capsule 600 mg PO TID clonazepam 1 mg tablet 1 mg PO DAILY buprenorphine HCl 8 mg tablet, sublingual 8 mg sublingual TID Primary Care Provider: Geri Erwin Referrals: Geri Erwin [Other] Cecil Ansari MD [Med Staff - Active Staff] - 3-5 Days Activity Restrictions/Additional Instructions: CT chest abdomen pelvis with no acute process. Gallbladder ultrasound with gallstones no cholecystitis. Your symptoms are concerning for gallbladder issues. Avoid greasy foods fatty foods and dairy foods. Discussed with Dr. Ansari in the ED. Follow-up with him next week. Call on Thursday. If symptoms recur and worsens, return to ED for reevaluation. Print Language: Upper Sorbian Disposition Disposition: Home, Self Care Discharge Date/Time: 06/18/24 21:15
[2024-06-18 17:36] LABS: Internal QC Validated? YES +Cl - CLEAR BKGD; Pregnancy, Serum, hCG Quali. NEGATIVE Negative
[2024-06-18 17:38] LABS: AST(SGOT) 170 U/L (15-37); Alanine Aminotransfer ALT/SGPT 185 U/L (13-56); Albumin, Serum 4.2 g/dL (3.2-5.0); Alkaline Phosphatase 168 U/L (45-117); Anion Gap 8 (5-15); BUN 10 mg/dL (7-18); BUN/Creat Ratio 13.7 RATIO (10-20); Calcium,Total 9.5 mg/dL (8.5-10.1); Chloride 104 mmol/L (98-107); Creatinine, Serum 0.73 mg/dL (0.55-1.02); EST Glomerular Filtration Rate 101 mL/min (>60); Est Glom Filt Rate - Afr Amer 122 mL/min (>60); Estimated Creatinine Clearance 119.28 ml/min; Globulin 4.1 g/dL (2.2-4.2); Glucose 101 mg/dL (74-106); Lipase 27 U/L (13-75); Potassium 3.6 mmol/L (3.5-5.1); Protein, Total 8.3 g/dL (6.4-8.2); Sodium Level 140 mmol/L (136-145)
--- NOTE | 2024-06-18 17:55 | US_ITS ---
EXAM: US ABDOMEN LIMITED, RIGHT UPPER QUADRANT CLINICAL INDICATION: pain TECHNIQUE: Real-time ultrasound of the right upper quadrant with image documentation. COMPARISON: No relevant prior studies available. FINDINGS: LIVER: The liver measures 18.4 cm in length. There is normal echotexture. No intrahepatic biliary ductal dilation. GALLBLADDER: Gallbladder measures 9.6 cm. There are echogenic foci in the gallbladder compatible with multiple gallstones. The gallbladder wall measures 3 mm. No pericholecystic fluid. Negative sonographic Yn''s sign. COMMON BILE DUCT: Common bile duct measures 6 mm. The proximal common bile duct is within normal limits for the patient''s age. PANCREAS: Unremarkable as visualized. No focal abnormality is demonstrated in the pancreas. No pancreatic ductal dilatation. RIGHT KIDNEY: Unremarkable. There is no hydronephrosis. No shadowing calculus. No focal lesion or perinephric collection is demonstrated. Right kidney measures 13.9 x 3.3 x 4.8 cm. US/Gallbladder IMPRESSION: Cholelithiasis with no sonographic evidence of cholecystitis. Electronically Signed: Phil Will MD at 19:22 EDT ,
[2024-06-18 18:00] VITALS: BP 109/65; PULSE 66; RESP 18; O2SAT 97
[2024-06-18 18:49] VITALS: BP 107/63; PULSE 66; RESP 20; O2SAT 96
[2024-06-18 20:00] VITALS: BP 109/71; PULSE 67; RESP 16; O2SAT 98
[2024-06-18 21:00] VITALS: BP 110/71; PULSE 62; RESP 16; O2SAT 98
== END 2024-06-18 21:15 | disposition home or self-care (01) ==
PROVIDERS: Emergency Provider Emergency Medicine; Visit Provider Emergency Medicine
DX: R07.9 Chest pain, unspecified (principal); K80.20 Calculus of gallbladder without cholecystitis without obstruction; R74.01 Elevation of levels of liver transaminase levels; F17.200 Nicotine dependence, unspecified, uncomplicated; F41.9 Anxiety disorder, unspecified; Z79.899 Other long term (current) drug therapy
CPT/HCPCS: 71275; 74174; 76705; 80053; 83690; 84703; 85025; 93005; 96360; 96361; 99284; J7040; Q9967; A4216

== ENCOUNTER 2024-12-06 17:17 | Inpatient (IN) | payer MEDICAID, SELFPAY ==
[2024-12-06] VITALS (15 sets, daily range): BP systolic 96–150; BP diastolic 54–91; PULSE 104–161; RESP 17–30; TEMP 35.9–38.5; O2SAT 83–98; BMI 18.9
--- NOTE | 2024-12-06 17:34 | EKG12_ITS ---
Test Reason : SOB Blood Pressure : */* mmHG Vent. Rate : 128 BPM Atrial Rate : 128 BPM P-R Int : 120 ms QRS Dur : 74 ms QT Int : 308 ms P-R-T Axes : 75 67 35 degrees QTcB Int : 449 ms Sinus tachycardia Otherwise normal ECG Confirmed by TOM HURD, SHWETA ([id number]), newspaper or periodical editor SHAHEED HUNTER ([id number]) on 12/08/2024 7:07:33 AM Referred By: Confirmed By: SHWETA SANTOS MD
[2024-12-06] MEDS: Acetaminophen 325 MG Tablet 650 MG PO (17:40)
[2024-12-06] MEDS: 0.9% Normal Saline (1000mL) 1,000 ML 999 ML IV ×2 (17:40→18:34)
[2024-12-06 17:53] LABS: Allen Test Positive; Base Excess -1 mmol/L (-2 to +2); Bicarbonate 22.8 mmol/L (22-26); Blood Gas Specimen Type ART; FI02 5.5; Mode Not entered; O2 Delivery Device Cannula; PO2 57 mmHG (75-100); SITE R Brach; SO2 91 % (95-99); Total Carbon Dioxide 24 mmol/L; pCO2 32.8 mmHg (35-45); pH 7.45 (7.35-7.45)
[2024-12-06 17:53] LABS: Absolute Lymphocyte Count 1.81 X10^3/uL (0.83-4.51); Absolute Neutrophil Count 22.7 X10^3/uL (2.0-7.7); Basophil# 0.08 X10^3/uL; Basophil% 0.3 % (0-1); Eosinophil# 0.01 X10^3/uL; Hematocrit 40.9 % (37-47); Hemoglobin 13.9 g/dL (12.0-15.0); Lymphocyte # 1.81 X10^3/ul (0.83-4.51); Lymphocyte % 6.9 % (19-41); Mean Corpuscular Hgb 27.2 pg (27.0-32.0); Mean Platelet Vol. 10.7 fl (6.2-12.0); Monocyte% 5.7 % (0-10); NRBC Flagged by Analyzer 0 % (0-5); Neutrophil # 22.67 X10^3/uL (2.7-7.7); Neutrophil % 86.2 % (47-70); POSITIVE DIFFERENTIAL YES; Platelet Count 515 K/mm3 (150-450); RBC Distribution Width CV 14.1 % (11.6-14.6); RBC Distribution Width SD 41.1 fl (35.1-43.9); Red Blood Count 5.11 M/mm3 (4.2-5.4); White Blood Count 26.3 K/mm3 (4.4-11.0)
--- NOTE | 2024-12-06 18:04 | EDS_ITS ---
HPI History of Present Illness Chief Complaint: Shortness of Breath Detail of Chief Complaint: Shortness of breath with cough since November 29 Informant: patient Onset/Context/Timing Onset: Days (7 days ago) Context: Sudden Onset Timing: Continuous and Waxes and wanes Quality: Nasal congestion, cough that initially was productive of brown sputum now c Location: Respiratory Current Severity: Moderate Maximum Severity: Severe Worsened by: Any activity Relieved by: Nothing Associated Symptoms Associated Symptoms: Fever, chills, decreased p.o. intake, thirst, orthostatic lightheadedness Narrative Narrative: Patient is a 28-year-old woman. She is a smoker of 2 packs/day. Daughter was seen in the emergency room department November 29 and diagnosed with influenza A. Patient's symptoms started November 29. She endorses fever, chills and upper respiratory tract infectious symptoms. She initially had cough that was productive of brown-colored sputum now it is mainly clear. She states she is only able to smoke 1 or 2 cigarettes a day. Patient does complain of aches predominately in her hips. She denies vomiting or diarrhea. She does endorse decreased urine output. She has not noted a rash. Prior similar symptoms: No Recent Illness/Hospitalization: No PFSH PFS Medical History Abnormal Pap smear of cervix Anxiety History of narcotic addiction Home Medications ?Medication ?Instructions ?Recorded ?Last Taken ?Type buprenorphine HCl 8 mg sublingual 8 mg sublingual TID 07/13/23 Unknown History tablet clonazepam 1 mg tablet 1 mg PO DAILY 07/13/23 Unkno wn History gabapentin 300 mg capsule 600 mg PO TID 07/13/23 Unkno wn History Allergy/AdvReac Type Severity Reaction Status Date / Time duloxetine (From Cymbalta) Allergy Severe Anaphylaxis Verified 12/06/24 17:20 Surgical History No pertinent past surgical history Social History Smoking Status: Current every day smoker tobacco type: cigarettes Tobacco: How many years used: 6 alcohol intake: former substance use type: does not use and prescription drug ROS ROS ED Constitutional Constitutional ED: Reports chills, fever(s) and sweats; Denies weight loss Eyes Eyes: Denies blurry vision or change in vision ENT ENT ED: Reports rhinorrhea; Denies ear pain or sore throat Cardiovascular Cardiovascular: Denies chest pain, orthopnea, palpitations or paroxysmal nocturnal dyspnea Respiratory/Chest Respiratory/Chest: Reports cough, dyspnea and dyspnea on exertion; Denies orthopnea, paroxysmal nocturnal dyspnea or sputum Gastrointestinal Gastrointestinal: Denies abdominal pain, diarrhea, nausea or vomiting Genitourinary Genitourinary ED: Denies dysuria, hematuria or urinary frequency Musculoskeletal Musculoskeletal: Reports arthralgias; Denies back pain or neck pain Integumentary Denies rash Neurologic Neurologic: Reports headache(s) and weakness; Denies paresthesias Psychiatric Psychiatric: Reports anxiety Endocrine Endocrinology: Denies heat intolerance Hematologic/Lymphatic Hematologic/Lymphatic: Reports systems reviewed and no addt'l complaints, except as documented EXAM Physical Exam Const Vital Signs: 12/06/24 17:18 12/06/24 17:19 12/06/24 17:22 Temperature 101.3 F H 101 F H Temperature Source Oral Oral Pulse Rate 161 H 132 H 137 H Respiratory Rate 30 H 30 H Respiratory Effort Respiratory Depth Respiratory Pattern Blood Pressure 150/91 H 125/77 H Blood Pressure Mean 110 93 Pulse Ox 83 96 92 Oxygen Delivery Method Room Air Nasal Cannula Nasal Cannula Oxygen Flow Rate (L/min) 5 4 12/06/24 17:44 12/06/24 17:47 12/06/24 18:17 Temperature 100.9 F H Temperature Source Oral Pulse Rate 130 H Respiratory Rate 18 Respiratory Effort Short of Breath Labored Respiratory Depth Shallow Respiratory Pattern Tachypnea Blood Pressure 111/70 Blood Pressure Mean 83 Pulse Ox 98 Oxygen Delivery Method Nasal Cannula Nasal Cannula Nasal Cannula Oxygen Flow Rate (L/min) 5 5 2 12/06/24 18:19 Temperature 100.9 F H Temperature Source Oral Pulse Rate 130 H Respiratory Rate 20 H Respiratory Effort Respiratory Depth Respiratory Pattern Blood Pressure 111/70 Blood Pressure Mean 83 Pulse Ox 98 Oxygen Delivery Method Nasal Cannula Oxygen Flow Rate (L/min) 4 Vital signs noted. Positive well nourished and well developed Constitutional Narrative: Patient appears ill. General Appearance ED: well developed; Negative for cyanotic, diaphoretic or NAD HEENT Reports dry mucous membranes HEENT Narrative: Head is atraumatic normocephalic. Ears normal. Nares patent. Posterior pharynx is normal. Mouth ED: Yes dry mucous membranes Mouth: dry mucous membranes Eyes PERRL and EOMs intact bilaterally General Eye ED: Negative for pale conjunctiva or scleral icterus Neck no lymphadenopathy, supple and no JVD Neck Narrative: Trachea is midline. There is no stridor. Chest Wall inspection of chest normal and palpation of chest normal Resp No normal respiratory effort and No clear to auscultation bilaterally Auscultation: rales right base and left lower and rhonchi throughout Cardio regular rhythm, S1 normal heart sound, S2 normal heart sound and no murmurs Rate: tachycardic GI normal to inspection, nondistended, normoactive bowel sounds, non-tender, non- distended and no masses; Negative for hepatosplenomegaly Palpation: soft Back/Spine no CVA tenderness Extremity normal to inspection General Extremety ED: Negative for edema or tenderness General Extremity: Negative for edema Neuro oriented x3, CN's II-XII intact bilaterally and no sensory deficits noted Sensorium / Orientation: alert Psych Mood & Affect: anxious Skin no rashes or lesions noted, no wounds and skin turgor normal General Skin Exam: elasticity normal; Negative for jaundice Sepsis Attestation Sepsis Alert: Yes Sepsis Attestation: Agree w/Sepsis Date exam was performed: 12/06/24 Time exam was performed: 17:58 Possible Source of Sepsis: Pulmonary Fluid Resuscitation Fluid resuscitation indicated?: Yes Fluid Resuscitation ordered: 30 ml/kg fluid bolus ordered MDM MDM MDM Narrative Medical decision making narrative: Patient with respiratory failure. She is febrile tachycardic tachypneic and hypoxic. Will obtain ABG in light of the amount of cigarettes she smokes to rule out retention and assess her pO2 since she is only saturating 92% on 4 L. EKG to rule out any evidence of ischemia. CBC, competence metabolic panel lactate to assess white count differential and rule out endorgan dysfunction. Chest x-ray to evaluate for pneumonia.Patient did receive Tylenol for her fever. Since she has rhonchi will treat with albuterol. Patient has been informed she will require admission. If patient is positive for influenza need to treat for staph and will order vancomycin. Azithromycin and Rocephin has been ordered. She is outside window for treatment for influenza. Lab Data Attestation: I reviewed the patient's lab results. Lab results narrative: White count is elevated 26,000 with shift. PT is slightly elevated 17.2 as is PTT at 37.7. There is mild hyponatremia. CO2 and anion gap are normal. Lactate is normal at 1.2. Labs: Laboratory Results - last 24 hr 12/06/24 17:40 WBC 26.3 H RBC 5.11 Hgb 13.9 Hct 40.9 MCV 80.0 L MCH 27.2 MCHC 34.0 RDW Std Deviation 41.1 RDW Coeff of Daisy 14.1 Plt Count 515 H MPV 10.7 Immature Gran % (Auto) 0.900 Neut % (Auto) 86.2 H Lymph % (Auto) 6.9 L [place] % (Auto) 5.7 Eos % (Auto) 0.0 Baso % (Auto) 0.3 Absolute Neuts (auto) 22.7 H Absolute Lymphs (auto) 1.81 Nucleated RBC % 0 PT 17.2 H INR 1.4 APTT 37.7 H Sodium 132 L Potassium 3.5 Chloride 96 L Carbon Dioxide 24.0 Anion Gap 12 BUN 12 Creatinine 0.65 Estim Creat Clear Calc 119.33 Est GFR (MDRD) Af Amer 141 Est GFR (MDRD) Non-Af 116 BUN/Creatinine Ratio 18.6 Glucose 105 Lactic Acid 1.2 Calcium 9.4 Total Bilirubin 1.20 H AST 21 ALT 26 Alkaline Phosphatase 164 H Total Protein 9.3 H Albumin 2.7 L Globulin 6.6 H Albumin/Globulin Ratio 0.4 L ABG Data Attestation: I personally reviewed and interpreted this ABG as follows: Interpretation: ABG reveals no significant acid base status. Patient's pO2 is 57 with a saturation 91% which correlates with pulse ox. Patient is on 5.5 L by nasal cannula. ABG results: ABG 12/06/24 17:48 Specimen Type ART Sample Site R Brach pH 7.45 Bicarbonate Actual 22.8 Total CO2 24 Base Excess -1 O2 Saturation 91 L O2 % 5.5 ABG pCO2 32.8 L ABG pO2 57 L Agustin Test Positive O2 Delivery Device Cannula Vent Mode Not entered Radiography Chest X-Ray - ED: 2 View (Independent reviewed interpreted by me as bilateral multilobar pneumonia. Patient has increased interstitial markings right upper lung right middle lobe and right lower lobe. There is involvement of the left lower lobe as well. Since she was exposed influenza need to consider staph infection. Wi) Diagnostic Testing: Clinical Impression(s) from Imaging Studies Chest X-Ray 12/06/24 18:07 IMPRESSION: Diffuse interstitial opacities in the bilateral lungs most likely due to interstitial pneumonia. Nodular opacity in the left lower lobe, consistent with calcified granuloma seen on prior CT chest. Reading [facility] Rhythm Strip Rhythm Strip: Sinus Tach Rate: 152 Ectopy: None EKG Initial EKG: Attestation: I personally reviewed and interpreted this EKG as follows: Interpretation: Sinus Tachycardia (Rate is 128. EKG is normal other than the tachycardia. ME interval 220 ms. Cures duration 74 ms. QT duration 108 ms. Ford is normal.) Management Discussion w/another healthcare provider: Hospitalist (Case was discussed with hospitalist. Patient be admitted to ICU.) Treatment and Re-Evaluation :: Patient was informed of results. Patient still tachycardic. Second liter of normal saline was ordered. This will be a COVID to 30 cc/kg bolus. In my opinion patient is septic. Critical Care Time Critical Care Time: Yes Critical care time (excluding procedures): 30-74 minutes (31), Including time spent: (History, physical, documentation, independent rotation of laboratory results and imaging), Discussing w/Patient &/or Family/Vice President Lending, Discussing w/Consultants and Arranging Admission or Transfer Discharge Plan Dx/Rx/DC Orders Clinical Impression: Acute hypoxemic respiratory failure, Bilateral interstitial pneumonia, Influenza A, Sepsis, Tobacco use, Acute bronchospasm Disposition Disposition: [facility]
--- NOTE | 2024-12-06 18:07 | RAD_ITS ---
PROCEDURE: CHEST PA AND LATERAL REASON FOR EXAM: Congestion for 1 week. Daughter had flu recently. Fever. Cough. Hypoxia TECHNIQUE: Single frontal image including the chest and abdomen. COMPARISON: CT chest dated 06/18/2024. FINDINGS: Heart and mediastinum are normal in size and configuration. Diffuse interstitial lung opacities are present, more prevalent in the lower lobes. A 1.3 cm nodular opacity projects over the left cardiac apex. No hilar enlargement. Great vessels are unremarkable. Bones and soft tissues are normal. Cardiac monitoring leads overlie the chest wall. RAD/Chest PA and Lateral IMPRESSION: Diffuse interstitial opacities in the bilateral lungs most likely due to inters titial pneumonia. Nodular opacity in the left lower lobe, consistent with calcified granuloma see n on prior CT chest. Reading Location: [facility]
[2024-12-06 18:13] LABS: Differential Indicated SCAN CRITERIA MET
[2024-12-06 18:14] LABS: International Normalized Ratio 1.4; Prothrombin Time (Protime)PT. 17.2 SECONDS (11.7-14.9)
[2024-12-06 18:15] LABS: Partial Thromboplast Time 37.7 Seconds (24.1-36.2)
[2024-12-06 18:22] LABS: ALB/GLOB Ratio 0.4 RATIO (0.9-2.4); AST(SGOT) 21 U/L (15-37); Alanine Aminotransfer ALT/SGPT 26 U/L (13-56); Albumin, Serum 2.7 g/dL (3.2-5.0); Alkaline Phosphatase 164 U/L (45-117); Anion Gap 12 (5-15); BUN 12 mg/dL (7-18); BUN/Creat Ratio 18.6 RATIO (10-20); Calcium,Total 9.4 mg/dL (8.5-10.1); Chloride 96 mmol/L (98-107); Creatinine, Serum 0.65 mg/dL (0.55-1.02); EST Glomerular Filtration Rate 116 mL/min (>60); Est Glom Filt Rate - Afr Amer 141 mL/min (>60); Estimated Creatinine Clearance 119.33 ml/min; Globulin 6.6 g/dL (2.2-4.2); Glucose 105 mg/dL (74-106); Potassium 3.5 mmol/L (3.5-5.1); Protein, Total 9.3 g/dL (6.4-8.2); Sodium Level 132 mmol/L (136-145)
[2024-12-06 18:26] LABS: Lactic Acid 1.2 mmol/L (0.4-1.9)
[2024-12-06] MEDS: Albuterol 2.5 MG/3 ML VIAL.NEB. INHALATION ×3 (18:27→19:21)
[2024-12-06] MEDS: Ceftriaxone 2 GM in 0.9% Normal Saline (50mL MB+) 50 ML IV (18:42)
[2024-12-06] MEDS: Azithromycin 500 MG in 0.9% Normal Saline (250mL Bag) 250 ML 255 MG IV (18:47)
--- NOTE | 2024-12-06 19:19 | PCM.HP.STD ---
HPI - General General Date of Admission: 12/06/24 Date of Service: 12/06/24 Chief Complaint: Increasing SOB HPI Narrative JOSEPH LAUREN, is a 28-year-old female with history of tobacco use who presented [facility] ED 12/06/24 due to fever, chills, poor p.o. intake, lightheadedness, shortness of breath and cough. Her daughter was seen in the emergency room 11/29/2024 and diagnosed with influenza A, her symptoms started that day and have continued to worsen. To smoke 2 packs a day but is only been able to smoke 1 or 2 cigarettes a day at this time. Has some generalized aches as well. In the ED patient 83% on room air and was placed on 5 L nasal cannula, temp 101.3 with heart rate initially 161 and downtrended to 130s, respiratory rate in the 30s. Blood pressure initially 150/91 but did dip in the ED (not documented on vital view but was verbally reported) so patient received IV fluids. She was found to have white blood cell count of 26.3 and was influenza positive, chest x-ray read not back but appears to have multifocal pneumonia. Patient given antibiotics for presumed pneumonia on top of influenza hospitalist contacted for admission. Patient evaluated at bedside and reports increasing shortness of breath since the , some sharp pleuritic pain when she coughs and she has been coughing often, possibly some fevers and chills at home, does get a little bit lightheaded when she is exerting herself. Reports that she has been very anxious because it has been difficult to breathe and has been having panic attacks, does take buprenorphine, Klonopin, gabapentin at home. Smokes 2 packs a day but is only smoked a couple of cigarettes for the past couple of days and has not been inhaling. Denies any other active substance use. Patient denies any nausea or diarrhea [facility] Medical History Abnormal Pap smear of cervix Anxiety History of narcotic addiction Home Medications ?Medication ?Instructions ?Recorded ?Last Taken ?Type buprenorphine HCl 8 mg sublingual 8 mg sublingual TID 07/13/23 Unknown History tablet clonazepam 1 mg tablet 1 mg PO BID 07/13/23 Unknown History gabapentin 300 mg capsule 800 mg PO TID 07/13/23 Unknown History Allergy/AdvReac Type Severity Reaction Status Date / Time duloxetine (From Cymbalta) Allergy Severe Anaphylaxis Verified 12/06/24 17:20 Surgical History No pertinent past surgical history Social History Smoking Status: Current every day smoker tobacco type: cigarettes Tobacco: How many years used: 6 alcohol intake: former substance use type: does not use and prescription drug ROS ROS Narrative General: Some fevers at home HENT: Occasional headaches EYES: Denies changes in vision Resp: Increased productive cough and increasing shortness of breath Cardiac: Some sharp rated bilateral pain when she coughs across lower chest wall GI: Denies abdominal pain, denies changes in bowel, denies nausea/vomiting : Denies changes in urination Extremity: Denies swelling MSK: Some generalized weakness and sometimes lightheadedness Neuro: Denies any numbness/tingling Heme: Denies any bleeding or bruising Skin: Denies rashes Psychiatric: No complaints voiced Vital Signs Vital Signs Vital Signs: 12/06/24 17:18 12/06/24 17:19 12/06/24 17:22 Temperature 101.3 F H 101 F H Temperature Source Oral Oral Pulse Rate 161 H 132 H 137 H Respiratory Rate 30 H 30 H Respiratory Effort Respiratory Depth Respiratory Pattern Blood Pressure 150/91 H 125/77 H Blood Pressure Mean 110 93 Pulse Ox 83 96 92 Oxygen Delivery Method Room Air Nasal Cannula Nasal Cannula Oxygen Flow Rate (L/min) 5 4 12/06/24 17:44 12/06/24 17:47 12/06/24 18:17 Temperature 100.9 F H Temperature Source Oral Pulse Rate 130 H Respiratory Rate 18 Respiratory Effort Short of Breath Labored Respiratory Depth Shallow Respiratory Pattern Tachypnea Blood Pressure 111/70 Blood Pressure Mean 83 Pulse Ox 98 Oxygen Delivery Method Nasal Cannula Nasal Cannula Nasal Cannula Oxygen Flow Rate (L/min) 5 5 2 12/06/24 18:19 12/06/24 19:00 12/06/24 19:00 Temperature 100.9 F H 98.6 F Temperature Source Oral Oral Pulse Rate 130 H 141 H 141 H Respiratory Rate 20 H 17 17 Respiratory Effort Respiratory Depth Respiratory Pattern Blood Pressure 111/70 96/59 L 96/59 L Blood Pressure Mean 83 71 71 Pulse Ox 98 95 95 Oxygen Delivery Method Nasal Cannula Room Air Nasal Cannula Oxygen Flow Rate (L/min) 4 2 12/06/24 19:18 Temperature 98.6 F Temperature Source Pulse Rate 141 H Respiratory Rate 17 Respiratory Effort Respiratory Depth Respiratory Pattern Blood Pressure 96/59 L Blood Pressure Mean 71 Pulse Ox 95 Oxygen Delivery Method Oxygen Flow Rate (L/min) Weight Weight: 58.145 kg Body Mass Index (BMI) 18.9 Physical Exam Narrative General: Alert, increased work of breathing HEENT: Atraumatic, normocephalic, poor dentition Eyes: Anicteric, normal conjunctiva, extraocular movements grossly intact Neck: Supple Respiratory: Coarse bilaterally with increased respiratory effort Cardiovascular: Sinus tachycardia GI: Soft, nontender, nondistended Extremities: No edema Musculoskeletal: Moving all extremities Neuro: No overt focal neurological deficits Skin: No rashes appreciated Psych: Anxious Results Lab / Micro Data 12/06/24 17:40 12/06/24 17:40 Labs: Laboratory Results - last 24 hr 12/06/24 17:40: WBC 26.3 H, RBC 5.11, Hgb 13.9, Hct 40.9, MCV 80.0 L, MCH 27.2, MCHC 34.0, RDW Std Deviation 41.1, RDW Coeff of Daisy 14.1, Plt Count 515 H, MPV 10.7, Immature Gran % (Auto) 0.900, Neut % (Auto) 86.2 H, Lymph % (Auto) 6.9 L, [place] % (Auto) 5.7, Eos % (Auto) 0.0, Baso % (Auto) 0.3, Absolute Neuts (auto) 22.7 H, Absolute Lymphs (auto) 1.81, Nucleated RBC % 0, PT 17.2 H, INR 1.4, APTT 37.7 H, Sodium 132 L, Potassium 3.5, Chloride 96 L, Carbon Dioxide 24.0, Anion Gap 12, BUN 12, Creatinine 0.65, Estim Creat Clear Calc 119.33, Est GFR (MDRD) Af Amer 141, Est GFR (MDRD) Non-Af 116, BUN/Creatinine Ratio 18.6, Glucose 105, Lactic Acid 1.2, Calcium 9.4, Total Bilirubin 1.20 H, AST 21, ALT 26, Alkaline Phosphatase 164 H, Total Protein 9.3 H, Albumin 2.7 L, Globulin 6.6 H, Albumin/Globulin Ratio 0.4 L Micro: Microbiology 12/06/24 17:30 Mucosa - Nose SARS-CoV-2, Influenza & RSV (PCR) - Final Influenzae A ABG Data ABG results: ABG 12/06/24 17:48 Specimen Type ART Sample Site R Brach pH 7.45 Bicarbonate Actual 22.8 Total CO2 24 Base Excess -1 O2 Saturation 91 L O2 % 5.5 ABG pCO2 32.8 L ABG pO2 57 L Agustin Test Positive O2 Delivery Device Cannula Vent Mode Not entered Rhythm Strip Rhythm Strip: Sinus Tach Rate: 152 Ectopy: None Imaging Radiology Impression Chest X-Ray 12/06/24 18:07 IMPRESSION: Diffuse interstitial opacities in the bilateral lungs most likely due to interstitial pneumonia. Nodular opacity in the left lower lobe, consistent with calcified granuloma seen on prior CT chest. Reading Location: [facility] Assessment & Plan Assessment/Plan (1) Sepsis: PLAN: Plan # Suspect sepsis secondary to multifocal pneumonia on top of influenza A with acute hypoxic respiratory failure -Patient tachycardic with heart rate 140s to 150s, tachypneic with respiratory rate in the 30s with respiratory failure/hypoxia 83% on room air -Patient received 30 cc/kg IV fluids in the ED -Blood pressure systolics in the 90s with maps in the 70s -Imaging: Chest x-ray with bilateral changes consistent with interstitial pneumonia -DuoNebs and as needed albuterol -Sputum culture -Influeza A + -Urine antigens -Mucinex, I/S -Rocephin and azithromycin and vancomycin added given influenza infection with subsequent worsening -Blood cultures sent -Water Project Manager consult #Tobacco use -Advise cessation -Nicotine replacement ordered # History of substance use -Continue home buprenorphine # Anxiety -Continue home Klonopin and gabapentin #DVT ppx: Lovenox subcu Paradise Aguilera MD Time spent in the patient's overall evaluation, decision-making process, review of diagnostic data, adjustment of management, discussion with other providers, nursing and ancillary staff involved in patient's care documentation, 56 Minutes Sepsis Attestation Sepsis Alert: Yes Sepsis Attestation: Agree w/Sepsis Date exam was performed: 12/06/24 Time exam was performed: 19:00 Possible Source of Sepsis: Pulmonary Supportive Findings: New respiratory failure, did have brief dip in blood pressure to systolics of 70s, respiratory rate in the 30s and patient tachycardic with heart rate 140s, elevated white blood cell count, febrile Fluid Resuscitation Fluid resuscitation indicated?: Yes Fluid Resuscitation ordered: 30 ml/kg fluid bolus ordered Sepsis Note Date exam was performed: 12/06/24 Time exam was performed: 19:43 Sepsis Attestation: Sepsis re-evaluation was performed Response to fluids: Fluid responsive hypotension (Systolic blood pressures currently in the 90s with maps in 70s) Charges/Coding Visit Charges Inpatient E&M: 84539 Init Hosp L2
[2024-12-06 19:20] LABS: Differential Comment SCANNED
[2024-12-06] MEDS: Vancomycin HCl 750 MG in 0.9% Normal Saline (250mL Bag) 250 ML 250 MG IV (19:45)
--- NOTE | 2024-12-06 19:47 | CPS ---
[1827] x3 Albuterol given to pt. in ER
--- NOTE | 2024-12-06 21:26 | ED.RN ---
Report called to LEASING MACHINE TENDERMECHELLE Farias questions/concerns answered
--- NOTE | 2024-12-06 22:08 | PCM.RX.CS ---
Consult Antibiotic Management Pharmacy has been consulted to manage selected antibiotic: Vancomycin Type of Intervention Type of Consult: New start Suspected Infection Suspected Infection: Sepsis and Pneumonia Labs Labs: Sodium 132 mmol/L (136-145) L 12/06/24 17:40 Potassium 3.5 mmol/L (3.5-5.1) 12/06/24 17:40 Chloride 96 mmol/L (98-107) L 12/06/24 17:40 Carbon Dioxide 24.0 mmol/L (21.0-32.0) 12/06/24 17:40 Anion Gap 12 (5-15) 12/06/24 17:40 BUN 12 mg/dL (7-18) 12/06/24 17:40 Creatinine 0.65 mg/dL (0.55-1.02) 12/06/24 17:40 Est GFR (MDRD) Af Amer 141 mL/min (>60) 12/06/24 17:40 Est GFR (MDRD) Non-Af 116 mL/min (>60) 12/06/24 17:40 BUN/Creatinine Ratio 18.6 RATIO (10-20) 12/06/24 17:40 Glucose 105 mg/dL (74-106) 12/06/24 17:40 Microbiology Microbiology: Microbiology 12/06/24 17:30 Mucosa - Nose SARS-CoV-2, Influenza & RSV (PCR) - Final Influenzae A Dosing Weight Weight used for dosin.7 kg Estimated Creatinine Clearance Estimated Creatinine Clearance: 119 Goal Trough Goal Trough: 15-20 mcg/mL Pharmacy Plan for Drug Dosing Pharmacy Plan for Drug Dosing: Pharmacy Service will continue to monitor and adjust dosing as required. Follow-Up Labs Follow-Up Labs: Trough: Vancomycin Date/Time Labs Ordered Labs to be done on [date and time ordered]: 12/07/24 @[id number]
[2024-12-06] MEDS: guaiFENesin 1,200 MG Tablet 1200 MG PO (22:14)
[2024-12-06] MEDS: Ipratropium/Albuterol Sulfate 3 ML AMPUL.NEB INHALATION (22:44)
[2024-12-06] MEDS: buprenorphine HCL 8 MG TAB.SUBL SL (23:15)
[2024-12-06] MEDS: Gabapentin 800 MG Tablet PO (23:16)
[2024-12-06] MEDS: clonazePAM 1 MG Tablet PO (23:16)
[2024-12-06] MEDS: 0.9% Normal Saline (1000mL) 1,000 ML 75 ML IV (23:54)
[2024-12-07] VITALS (29 sets, daily range): BP systolic 94–126; BP diastolic 53–85; PULSE 77–146; RESP 12–24; TEMP 36–36.9; O2SAT 87–100; BMI 19.5
[2024-12-07 01:04] LABS: Red Blood Cells-Urine 0 SEEN /hpf (0-5)
[2024-12-07 01:05] LABS: Color, Urine Yellow (Yellow); Glucose, Dipstick Normal (Normal); Leukocyte Esterase-Dipstick 25 /ul (Negative); Nitrite-Dipstick Negative (Negative); Occult Blood-Urine 10 /ul (Negative); Protein-Dipstick 30 mg/dl (Negative); Specific Gravity, Urine 1.025 (1.002-1.030); Urine Clarity Clear (Clear); Urine Urobilinogen 12 mg/dl (Normal)
[2024-12-07 01:16] LABS: Ketone-Dipstick 150 mg/dl (Negative); Urine Bilirubin Dipstick 1 mg/dL (Negative)
[2024-12-07 01:17] LABS: Bacteria 3+ /hpf (None Seen); Mucous, Urine 2+ /hpf (<or=2+); Squamous Epithelial Cells - UA 0-5 SEEN /hpf (5-10); White Blood Cells 5-10 SEEN /hpf (0-5)
[2024-12-07] MEDS: Ipratropium/Albuterol Sulfate 3 ML AMPUL.NEB INHALATION ×7 (03:10→23:03)
[2024-12-07 05:16] LABS: Absolute Lymphocyte Count 1.73 X10^3/uL (0.83-4.51); Absolute Neutrophil Count 12.3 X10^3/uL (2.0-7.7); Basophil# 0.03 X10^3/uL; Basophil% 0.2 % (0-1); Eosinophil# 0.04 X10^3/uL; Eosinophils% 0.3 % (0-5); Hematocrit 33.7 % (37-47); Hemoglobin 11.1 g/dL (12.0-15.0); Lymphocyte # 1.73 X10^3/ul (0.83-4.51); Lymphocyte % 11.4 % (19-41); Mean Corp Hgb Conc 32.9 g/dL (32-36); Mean Corpuscular Hgb 27.1 pg (27.0-32.0); Mean Corpuscular Volume 82.2 fL (81-99); Mean Platelet Vol. 10.8 fl (6.2-12.0); Monocyte# 0.89 X10^3/uL; Monocyte% 5.9 % (0-10); NRBC Flagged by Analyzer 0 % (0-5); Neutrophil # 12.34 X10^3/uL (2.7-7.7); Neutrophil % 81.5 % (47-70); Platelet Count 384 K/mm3 (150-450); RBC Distribution Width CV 14.3 % (11.6-14.6); RBC Distribution Width SD 42.1 fl (35.1-43.9); White Blood Count 15.1 K/mm3 (4.4-11.0)
[2024-12-07 05:52] LABS: ALB/GLOB Ratio 0.4 RATIO (0.9-2.4); AST(SGOT) 24 U/L (15-37); Alanine Aminotransfer ALT/SGPT 25 U/L (13-56); Alkaline Phosphatase 115 U/L (45-117); Anion Gap 7 (5-15); BUN 9 mg/dL (7-18); BUN/Creat Ratio 25.2 RATIO (10-20); Calcium,Total 8.1 mg/dL (8.5-10.1); Chloride 104 mmol/L (98-107); Creatinine, Serum 0.36 mg/dL (0.55-1.02); EST Glomerular Filtration Rate 230 mL/min (>60); Est Glom Filt Rate - Afr Amer 279 mL/min (>60); Estimated Creatinine Clearance 221.97 ml/min; Globulin 4.8 g/dL (2.2-4.2); Glucose 104 mg/dL (74-106); Potassium 3.6 mmol/L (3.5-5.1); Protein, Total 6.8 g/dL (6.4-8.2); Sodium Level 137 mmol/L (136-145)
[2024-12-07] MEDS: Vancomycin HCl 750 MG in 0.9% Normal Saline (250mL Bag) 250 ML 250 MG IV ×2 (06:07→14:07)
[2024-12-07] MEDS: 0.9% Saline Lock 10 ML Syringe IV (06:07)
[2024-12-07] MEDS: Gabapentin 800 MG Tablet PO ×3 (06:07→21:22)
[2024-12-07] MEDS: buprenorphine HCL 8 MG TAB.SUBL SL ×3 (06:07→22:20)
--- NOTE | 2024-12-07 07:43 | CON.PCM.CC_ITS ---
Assessment & Plan Assessment/Plan (1) Influenza A: PLAN: Plan RECOMMENDATIONS: 1. Supplemental oxygen to maintain saturations at or above 90%. 2. Continue scheduled bronchodilators and steroids. 3. Continue empiric antimicrobials. 4. Continue appropriate DVT prophylaxis. 5. Encourage incentive spirometer use and mobilize patient as tolerated. 6. Nicotine replacement therapy while admitted to the hospital. 7. Outpatient pulmonary follow-up after discharge. 8. The patient is medically stable for transfer out of the intensive care unit. IMPRESSIONS: 1. Shortness of breath and hypoxemia I do suspect that the patient may have an underlying component of bronchospastic airway disease, which is likely in a state of exacerbation due to influenza A and questionable secondary bacterial pneumonia. She does have an extensive tobacco abuse history for only being 28 years old. At this time, it is reasonable to continue antimicrobials and supplemental oxygen to maintain saturations at or above 90%. The patient will be continued on scheduled bronchodilators and will be initiated on corticosteroids. I do suspect that she would benefit from outpatient pulmonary follow-up after discharge. Smoking cessation is strongly advisable. 2. History of prior substance abuse/tobacco dependency/anxiety Complicates care, management, recovery and prognosis. Continue home medications as indicated. This note was generated with [employer] dictation software. It may contain incorrect words, spelling, and punctuation that were not noted in checking the note before signing. HPI Consult Data Date of Consult: 12/07/24 HPI Narrative Reason for Consultation: Shortness of breath and hypoxemia HPI Narrative: The patient is a 28-year-old female, with a history as outlined below, who presented to the emergency department on December 06 with progressive dyspnea and cough. The patient did report that her daughter was recently diagnosed with influenza A at the end of November. Her symptoms initially began shortly after that time and have continued to progress. The patient does have a tobacco abuse history of approximately 2 packs/day. However, she has recently cut back in light of her worsening respiratory status. The patient has never been evaluated by a manager human capital, nor has she ever been diagnosed with asthma. She does not utilize supplemental oxygen at her baseline, nor does she utilize any inhalers. On presentation to the emergency department, the patient was documented to be febrile, tachycardic and tachypneic. Laboratory evaluation was notable for a white blood cell count of 26,000. Chemistry profile was unremarkable. Lactate was within normal limits. Urine analysis was negative for nitrites, positive for leukocyte esterase and 3+ urine bacteria. Chest imaging demonstrated diffuse interstitial opacities. The patient was placed on scheduled bronchodilators along with empiric antibiotics. She was admitted to the medical intensive care unit for further management. This morning, the patient remains hemodynamically stable on 2 L/min via nasal cannula. She is quite anxious to be discharged home. [facility] Medical History Abnormal Pap smear of cervix Anxiety History of narcotic addiction Home Medications ?Medication ?Instructions ?Recorded ?Last Taken ?Type buprenorphine HCl 8 mg sublingual 8 mg sublingual TID 07/13/23 Unknown History tablet clonazepam 1 mg tablet 1 mg PO BID 07/13/23 Unknown History gabapentin 300 mg capsule 800 mg PO TID 07/13/23 Unkno wn History Allergy/AdvReac Type Severity Reaction Status Date / Time duloxetine (From Cymbalta) Allergy Severe Anaphylaxis Verified 12/06/24 17:20 Surgical History No pertinent past surgical history Social History Smoking Status: Current every day smoker tobacco type: cigarettes Tobacco: How many years used: 6 alcohol intake: former substance use type: does not use and prescription drug ROS ROS Narrative 10 systems were reviewed with pertinent positives as noted in the HPI above. Physical Exam Const alert and no apparent distress General Appearance: cooperative HEENT normocephalic, head/scalp atraumatic and moist oral mucous membranes Teeth and Gingiva: poor dentition Eyes PERRL, EOMs intact bilaterally and conjunctivae normal Neck supple General: trachea midline Chest inspection of chest normal Resp no use of accessory muscles Effort and Inspection: tachypneic Auscultation: wheezes Cardio S1 normal heart sound and S2 normal heart sound Rate: tachycardic GI normal to inspection, nondistended, normoactive bowel sounds Extremity no clubbing, cyanosis or edema Skin no rashes or lesions noted Neuro CN's II-XII intact bilaterally, moves all extremities and no focal motor deficits Psych Mood & Affect: anxious Lab / Micro Data 12/07/24 05:00 12/07/24 05:00 Labs: Laboratory Results - last 24 hr 12/06/24 17:40: WBC 26.3 H, RBC 5.11, Hgb 13.9, Hct 40.9, MCV 80.0 L, MCH 27.2, MCHC 34.0, RDW Std Deviation 41.1, RDW Coeff of Daisy 14.1, Plt Count 515 H, MPV 10.7, Immature Gran % (Auto) 0.900, Neut % (Auto) 86.2 H, Lymph % (Auto) 6.9 L, [place] % (Auto) 5.7, Eos % (Auto) 0.0, Baso % (Auto) 0.3, Absolute Neuts (auto) 22.7 H, Absolute Lymphs (auto) 1.81, Nucleated RBC % 0, Differential Comment SCANNED, PT 17.2 H, INR 1.4, APTT 37.7 H, Sodium 132 L, Potassium 3.5, Chloride 96 L, Carbon Dioxide 24.0, Anion Gap 12, BUN 12, Creatinine 0.65, Estim Creat Clear Calc 119.33, Est GFR (MDRD) Af Amer 141, Est GFR (MDRD) Non-Af 116, BUN/Creatinine Ratio 18.6, Glucose 105, Lactic Acid 1.2, Calcium 9.4, Total Bilirubin 1.20 H, AST 21, ALT 26, Alkaline Phosphatase 164 H, Total Protein 9.3 H, Albumin 2.7 L, Globulin 6.6 H, Albumin/Globulin Ratio 0.4 L 12/06/24 23:30: Urine Color Yellow, Urine Clarity Clear, Urine pH 6.0, Ur Specific [place] 1.025, Urine Protein 30 H, Urine Glucose (UA) Normal, Urine Ketones 150 A*, Urine Occult Blood 10 H, Urine Nitrite Negative, Urine Bilirubin 1 H, Urine Urobilinogen 12 H, Ur Leukocyte Esterase 25 H, Urine RBC 0 SEEN, Urine WBC 5-10 SEEN, Ur Squamous Epith Cells 0-5 SEEN, Urine Bacteria 3+, Urine Mucus 2+ 12/07/24 05:00: WBC 15.1 H, RBC 4.10 L, Hgb 11.1 L, Hct 33.7 L, MCV 82.2, MCH 27.1, MCHC 32.9, RDW Std Deviation 42.1, RDW Coeff of Daisy 14.3, Plt Count 384, MPV 10.8, Immature Gran % (Auto) 0.700, Neut % (Auto) 81.5 H, Lymph % (Auto) 11.4 L, [place] % (Auto) 5.9, Eos % (Auto) 0.3, Baso % (Auto) 0.2, Absolute Neuts (auto) 12.3 H, Absolute Lymphs (auto) 1.73, Nucleated RBC % 0, Sodium 137, Potassium 3.6, Chloride 104, Carbon Dioxide 26.0, Anion Gap 7, BUN 9, Creatinine 0.36 L, Estim Creat Clear Calc 221.97, Est GFR (MDRD) Af Amer 279, Est GFR (MDRD) Non-Af 230, BUN/Creatinine Ratio 25.2 H, Glucose 104, Calcium 8.1 L, Total Bilirubin 0.70, AST 24, ALT 25, Alkaline Phosphatase 115, Total Protein 6.8, Albumin 2.0 L, Globulin 4.8 H, Albumin/Globulin Ratio 0.4 L, TSH 1.520 Micro: Microbiology 12/06/24 23:30 Urine, Random Legionella Antigen - Final 12/06/24 23:30 Urine, Random Streptococcus pneumoniae Antigen (M - Final 12/06/24 17:30 Mucosa - Nose SARS-CoV-2, Influenza & RSV (PCR) - Final Influenzae A ABG Data ABG results: ABG 12/06/24 17:48 Specimen Type ART Sample Site R Brach pH 7.45 Bicarbonate Actual 22.8 Total CO2 24 Base Excess -1 O2 Saturation 91 L O2 % 5.5 ABG pCO2 32.8 L ABG pO2 57 L Agustin Test Positive O2 Delivery Device Cannula Vent Mode Not entered Rhythm Strip Rhythm Strip: Sinus Tach Rate: 152 Ectopy: None Imaging Radiology Impression Chest X-Ray 12/06/24 18:07 IMPRESSION: Diffuse interstitial opacities in the bilateral lungs most likely due to interstitial pneumonia. Nodular opacity in the left lower lobe, consistent with calcified granuloma seen on prior CT chest. Reading Location: [facility] Charges/Coding Visit Charges Inpatient E&M: 73314 Init Hosp L3
[2024-12-07] MEDS: clonazePAM 1 MG Tablet PO ×2 (09:23→22:20)
[2024-12-07] MEDS: guaiFENesin 1,200 MG Tablet 1200 MG PO ×2 (09:23→21:19)
--- NOTE | 2024-12-07 09:49 | CASEMGMT ---
MECHELLE LU Assessment Face to Face with patient for initial transition planning/care coordination assessment. RN TABITHA introduced self and role at [facility], pt voices understanding. Pt is A&Ox4 and is resting comfortably in bed and is calm. Care providers, pharmacy, and demographics verified. Admitting dx: Increasing SOB LACE Strata: 1 PCP: No PCP. Pt states that her kids have a provider but she does not. PCP list given to the pt at this time who states that she will get herself established. Specialists: Denies Preferred Pharmacy: [facility] Insurance: [id number] Prescription Benefit: Yes LNOK: Hemanth (SO) Living Arrangements: Pt lives on the second floor of an apartment with a flight of steps to enter with her SO and 3 kids (Ages 6, 3, and 10 months). Pt states that she plans to DC to her mother's house at the time of DC prior to returning to her apartment. Pt states she plans to heal there before returning home to better help take care of her family. Pt states that there are 4 steps to enter her mom's home. ADLs/IADLs: Ind. 6-click is 24 Transportation: Self, SO. Denies concerns DME: Pt states that her aunt gave her a portable oxygen tank. Pt denies all other DME uses currently. Pt states that she does not have a pulse ox but that she can afford one. Pt is currently on 1L. This RN CM anticipates that the pt will not DC until oxygen is weaned off. If pt does go home and qualifies for home oxygen, CM can follow. Pt agrees. HHC/SNF: Denies Hx or needs Pt?s goal: Return home Plan: Home, anticipate no needs. Follow for oxygen demands. Pt states that she feels safe discharging to her mother's home once medically ready and denies further questions or concerns at this time. CM to follow. Effie Chang RN, CM
--- NOTE | 2024-12-07 10:20 | CASEMGMT ---
Social Work SW met with pt and requested significant other step out of room. SDOH assessment completed. Pt denies any concerns with home situation and pt states she feels safe in the home. Pt lives with SO and has three children. Pt states SO and pt's mother are caring for the children and pt denies concerns for children's well being while she is hospitalized as SO and mother are capable caregivers. Pt with some anxiety with need to be hospitalized and missing children. Support provided and pt is appreciative. No additional SW needs at this time. EUSEBIO Holcomb
--- NOTE | 2024-12-07 10:34 | ECHOD_ITS ---
Reason For Study: Arrhythmia Procedure This was a 2D Doppler, Color Flow transthoracic echocardiogram. Technically difficult study, patient had a hard time staying in position. Exam performed portable in ICU/CCU. Left Ventricle Normal LV size. Left ventricular systolic function is normal. The left ventricular ejection fraction is 55 %. No regional wall motion abnormalities noted. Right Ventricle Normal RV size. Normal systolic function. Atria Normal left atrium. Normal right atrium. Mitral Valve Normal mitral valve. Tricuspid Valve Normal tricuspid valve. Aortic Valve Normal aortic valve. Trisinus/trileaflet aortic valve. Pulmonic Valve Normal pulmonic valve. Great Vessels Normal aortic root. The pulmonary artery is normal size. Normal inferior vena cava. Pericardium/Pleural No pericardial effusion. MMode/2D Measurements & Calculations LVIDd: 5.4 cm IVSd: 0.64 cm LA dimension: 3.3 cm LVIDs: 3.8 cm LVPWd: 0.65 cm RVDd: 3.0 cm FS: 28.9 % _ LAV(MOD-bp): 33.8 ml LVAd ap4: 31.1 cm2 SV(MOD- sp4): 57.5 ml LAV(MOD-bp) Indexed: 19.5 ml/m2 LVLd ap4: 7.8 cm SI(MOD- sp4): 33.2 ml/m2 LAV(MOD-sp2): 36.3 ml EDV(MOD-sp4): 101.9 ml LAV(MOD-sp4): 28.0 ml EDV(sp4-el): 104.8 ml LVAs ap4: 17.9 cm2 LVLs ap4: 6.0 cm ESV(MOD-sp4): 44.4 ml ESV(sp4-el): 45.8 ml EF(MOD-sp4): 56.4 % EF(sp4-el): 56.3 % _ SV(sp4-el): 59.1 ml LA A4 area: 12.5 cm2 LA dimension(2D): 2.9 cm _ RA A4 area: 12.5 cm2 TAPSE: 1.5 cm Time Measurements MV dec time: 0.12 sec Doppler Measurements & Calculations MV E max canelo: 91.2 cm/sec Lat Peak E' Canelo: 27.5 cm/sec Med Peak E' Canelo: 14.8 cm/sec MV A max canelo: 118.6 cm/sec E/E' lat: 3.3 E/E' med: 6.2 MV E/A: 0.77 _ MV V2 max: 147.9 cm/sec PA V2 max: 117.2 cm/sec MV max P.8 mmHg MV V2 mean: 95.5 cm/sec MV mean P.1 mmHg MV V2 VTI: 20.7 cm ECHO/Echo Complete Interpretation Summary Normal LV size. Left ventricular systolic function is normal. The left ventricular ejection fraction is 55 %. Structurally normal valves. Ordering Physician: Shante Reyes Performed By: Hector Thornton RCS
--- NOTE | 2024-12-07 10:34 | CT_ITS ---
PROCEDURE: CTA CHEST W/WO CONTRAST REASON FOR EXAM: Influenza a; smoker; current pneumonia. TECHNIQUE: CTA imaging of the chest with intravenous contrast. 3D reconstructions. COMPARISON: 06/18/2024 CT. FINDINGS: Hardware: None. Lymph nodes: Enlarged mediastinal lymph nodes. For instance, a subcarinal lymph node measures 1.2 cm (axial image 156). Heart: Normal heart size. No pericardial effusion. RV/LV Diameter Ratio: N/A Thoracic Aorta: No thoracic aortic aneurysm or dissection. Pulmonary Vessels: No evidence of acute pulmonary emboli through the major subsegmental branches. Most Proximal Level of Embolus (if embolus present): N/A Lungs and Airways: Extensive diffuse patchy consolidative opacities most pronounced in the lower lobes, middle lobe, and lingula which may represent pneumonia/inflammation. Although non have significant cavitation, septic emboli can not be excluded. Calcified granulomas. Pleura: No pleural effusion. No pneumothorax. Upper Abdomen: Punctate liver and splenic calcifications likely representing prior granulomatous infection. Bones: Bone windows are unremarkable. CT/CTA Chest W/WO Contrast IMPRESSION: Extensive patchy consolidative opacities which may represent nonspecific pneumo clement pneumonia/inflammation. Although none are cavitary, septic emboli can be considered if there is a history of intravenous drug use. Given scattered granulomas, mycobacterial infection can be considered. Sarcoidosis and fungal infections c an also be included in the differential. Lymphoma is possible, but less likely. Mediastinal lymphadenopathy. One or more dose reduction techniques were used (e.g., Automated exposure contr ol, adjustment of the mA and/or kV according to patient size, use of iterative reconstruction technique). Reading Location: [id number]
[2024-12-07] MEDS: Metoprolol Tartrate 5 MG/5 ML Vial IV (14:03)
--- NOTE | 2024-12-07 16:37 | PCM.PROGNOTE ---
Subjective Subjective Patient seen and examined. Patient has been tachycardic and tachypneic. She admits to feeling short of breath and says she is very anxious because she is left her children at home. She is coughing but is not bringing up any sputum. Previous times otherwise negative. Objective Data Objective Data Vital Signs: Vital Signs Temp Pulse Resp BP Pulse Ox O2 Del Method O2 Flow Rate 97.2 F L 124 H 20 H 119/77 96 Nasal Cannula 8 12/07/24 06:00 12/07/24 15:37 12/07/24 15:37 12/07/24 14:03 12/07/24 15:37 12/07/24 15:37 12/07/24 15:37 Oxygen Flow Rate (L/min) 8 Oxygen Delivery Method Nasal Cannula Weight: 132 lb 0.91 oz Body Mass Index (BMI) 19.5 Intake & Output: Intake and Output for Last 24 Hours 12/05/24 12/06/24 12/07/24 23:59 23:59 23:59 Intake Total 3070 / 3070 1135 / 1135 Output Total 250 / 250 0 / 0 Balance 2820 / 2820 1135 / 1135 Lab / Micro Data 12/07/24 05:00 12/07/24 05:00 Labs: Laboratory Results - last 24 hr 12/06/24 17:40: WBC 26.3 H, RBC 5.11, Hgb 13.9, Hct 40.9, MCV 80.0 L, MCH 27.2, MCHC 34.0, RDW Std Deviation 41.1, RDW Coeff of Daisy 14.1, Plt Count 515 H, MPV 10.7, Immature Gran % (Auto) 0.900, Neut % (Auto) 86.2 H, Lymph % (Auto) 6.9 L, [place] % (Auto) 5.7, Eos % (Auto) 0.0, Baso % (Auto) 0.3, Absolute Neuts (auto) 22.7 H, Absolute Lymphs (auto) 1.81, Nucleated RBC % 0, Differential Comment SCANNED, PT 17.2 H, INR 1.4, APTT 37.7 H, Sodium 132 L, Potassium 3.5, Chloride 96 L, Carbon Dioxide 24.0, Anion Gap 12, BUN 12, Creatinine 0.65, Estim Creat Clear Calc 119.33, Est GFR (MDRD) Af Amer 141, Est GFR (MDRD) Non-Af 116, BUN/Creatinine Ratio 18.6, Glucose 105, Lactic Acid 1.2, Calcium 9.4, Total Bilirubin 1.20 H, AST 21, ALT 26, Alkaline Phosphatase 164 H, Total Protein 9.3 H, Albumin 2.7 L, Globulin 6.6 H, Albumin/Globulin Ratio 0.4 L 12/06/24 23:30: Urine Color Yellow, Urine Clarity Clear, Urine pH 6.0, Ur Specific [place] 1.025, Urine Protein 30 H, Urine Glucose (UA) Normal, Urine Ketones 150 A*, Urine Occult Blood 10 H, Urine Nitrite Negative, Urine Bilirubin 1 H, Urine Urobilinogen 12 H, Ur Leukocyte Esterase 25 H, Urine RBC 0 SEEN, Urine WBC 5-10 SEEN, Ur Squamous Epith Cells 0-5 SEEN, Urine Bacteria 3+, Urine Mucus 2+ 12/07/24 05:00: WBC 15.1 H, RBC 4.10 L, Hgb 11.1 L, Hct 33.7 L, MCV 82.2, MCH 27.1, MCHC 32.9, RDW Std Deviation 42.1, RDW Coeff of Daisy 14.3, Plt Count 384, MPV 10.8, Immature Gran % (Auto) 0.700, Neut % (Auto) 81.5 H, Lymph % (Auto) 11.4 L, [place] % (Auto) 5.9, Eos % (Auto) 0.3, Baso % (Auto) 0.2, Absolute Neuts (auto) 12.3 H, Absolute Lymphs (auto) 1.73, Nucleated RBC % 0, Sodium 137, Potassium 3.6, Chloride 104, Carbon Dioxide 26.0, Anion Gap 7, BUN 9, Creatinine 0.36 L, Estim Creat Clear Calc 221.97, Est GFR (MDRD) Af Amer 279, Est GFR (MDRD) Non-Af 230, BUN/Creatinine Ratio 25.2 H, Glucose 104, Calcium 8.1 L, Total Bilirubin 0.70, AST 24, ALT 25, Alkaline Phosphatase 115, Total Protein 6.8, Albumin 2.0 L, Globulin 4.8 H, Albumin/Globulin Ratio 0.4 L, TSH 1.520 12/07/24 14:15: TSH 1.630 Micro: Microbiology 12/06/24 23:30 Urine, Random Legionella Antigen - Final 12/06/24 23:30 Urine, Random Streptococcus pneumoniae Antigen (M - Final 12/06/24 17:30 Mucosa - Nose SARS-CoV-2, Influenza & RSV (PCR) - Final Influenzae A ABG Data ABG results: ABG 12/06/24 17:48 Specimen Type ART Sample Site R Brach pH 7.45 Bicarbonate Actual 22.8 Total CO2 24 Base Excess -1 O2 Saturation 91 L O2 % 5.5 ABG pCO2 32.8 L ABG pO2 57 L Agustin Test Positive O2 Delivery Device Cannula Vent Mode Not entered Radiography Diagnostic Testing: Radiology Impression Chest X-Ray 12/06/24 18:07 IMPRESSION: Diffuse interstitial opacities in the bilateral lungs most likely due to interstitial pneumonia. Nodular opacity in the left lower lobe, consistent with calcified granuloma seen on prior CT chest. Reading Location: [facility] Chest CTA 12/07/24 10:34 IMPRESSION: Extensive patchy consolidative opacities which may represent nonspecific pneumonia pneumonia/inflammation. Although none are cavitary, septic emboli can be considered if there is a history of intravenous drug use. Given scattered granulomas, mycobacterial infection can be considered. Sarcoidosis and fungal infections can also be included in the differential. Lymphoma is possible, but less likely. Mediastinal lymphadenopathy. One or more dose reduction techniques were used (e.g., Automated exposure control, adjustment of the mA and/or kV according to patient size, use of iterative reconstruction technique). Reading Location: [id number] Rhythm Strip Rhythm Strip: Sinus Tach Rate: 152 Ectopy: None Physical Exam Const alert and oriented x3 Constitutional Narrative: anxious HEENT normocephalic, head/scalp atraumatic, moist oral mucous membranes and oropharynx normal Eyes PERRL and EOMs intact bilaterally Neck no lymphadenopathy, supple and no JVD Lymph Lymphatic: no lymphadenopathy noted and no lymphedema noted Resp Resp Narrative: diminished breath sounds bilaterally, bilateral coarse crackles. Tachypneic and tachycardic. On 8 L of oxygen. Cardio regular rate, regular rhythm, S1 normal heart sound, S2 normal heart sound and no murmurs GI normal to inspection, nondistended, normoactive bowel sounds, soft to palpation, non-tender and non-distended Extremity normal capillary refill, no clubbing, cyanosis or edema and no calf tenderness General Extremity: no tenderness to palpation of joints or extremities Skin General Skin Exam: no breakdown Neuro CN's II-XII intact bilaterally and no focal motor deficits Motor Exam: strength 5/5 throughout and general weakness Psych thought process normal and cooperative Attitude: agitated Activity / Motor Behavior: restless Mood & Affect: anxious Assessment & Plan Assessment/Plan (1) Influenza A: (2) Acute hypoxemic respiratory failure: PLAN: Plan #Sepsis due to multifocal pneumonia Patient admitted with tachycardia and tachypnea was hypoxic as well. Chest x-ray showed multifocal pneumonia she also tested positive for influenza. Currently on IV ceftriaxone and azithromycin as well as vancomycin. Start Tamiflu. Urine for strep and Legionella negative. [employer] Operator on board. Sputum cultures and blood cultures ordered and pending. Titrate oxygen to maintain saturation above 90%. #Acute hypoxic respiratory failure due to influenza and multifocal pneumonia Now on 8 L of oxygen as above. Management as above. #UTI: Urinalysis also showed 3+ bacteria. Urine cultures ordered and pending. On IV ceftriaxone. Will await urine culture results. #Sinus tachycardia Patient was very tachycardic with heart rate going up into the 150s today. She attributes this to anxiety. TSH checked was within normal limits. CT of the chest done was negative for PE but did show multifocal pneumonia. 2D echo ordered and pending. Started on p.o. metoprolol 25 mg twice daily She could also be withdrawing from benzodiazepines as she does take benzodiazepines. DC albuterol every 2 as needed as this could be contributing to the tachycardia. #Nicotine dependence: Was smoking up to 2 packs of cigarettes daily. Counseled to quit. Nicotine patch 21 mg daily. #History of anxiety: On Klonopin and gabapentin #DVT Prophylaxis: Lovenox Charges/Coding Visit Charges Inpatient E&M: 63383 [facility] Hosp L3
[2024-12-07] MEDS: Oseltamivir Phosphate 75 MG Capsule PO (18:35)
[2024-12-07 20:20] LABS: Vancomycin, Trough Level 5.5 ug/mL (5.0-15.0)
[2024-12-07] MEDS: Ceftriaxone 2 GM in 0.9% Normal Saline (50mL MB+) 50 ML IV (21:17)
[2024-12-07] MEDS: Azithromycin 500 MG in 0.9% Normal Saline (250mL Bag) 250 ML 250 MG IV (21:49)
[2024-12-07] MEDS: Vancomycin HCl 1,250 MG in 0.9% Normal Saline (250mL Bag) 250 ML 167 MG IV (23:30)
--- NOTE | 2024-12-07 23:57 | PCM.RX.CS ---
Consult Antibiotic Management Pharmacy has been consulted to manage selected antibiotic: Vancomycin Type of Intervention Type of Consult: Follow-up Labs Labs: Sodium 137 mmol/L (136-145) 12/07/24 05:00 Potassium 3.6 mmol/L (3.5-5.1) 12/07/24 05:00 Chloride 104 mmol/L (98-107) 12/07/24 05:00 Carbon Dioxide 26.0 mmol/L (21.0-32.0) 12/07/24 05:00 Anion Gap 7 (5-15) 12/07/24 05:00 BUN 9 mg/dL (7-18) 12/07/24 05:00 Creatinine 0.36 mg/dL (0.55-1.02) L 12/07/24 05:00 Est GFR (MDRD) Af Amer 279 mL/min (>60) 12/07/24 05:00 Est GFR (MDRD) Non-Af 230 mL/min (>60) 12/07/24 05:00 BUN/Creatinine Ratio 25.2 RATIO (10-20) H 12/07/24 05:00 Glucose 104 mg/dL (74-106) 12/07/24 05:00 Vancomycin Trough 5.5 ug/mL (5.0-15.0) 12/07/24 19:56 Microbiology Microbiology: Microbiology 12/06/24 23:30 Urine, Random Legionella Antigen - Final 12/06/24 23:30 Urine, Random Streptococcus pneumoniae Antigen (M - Final 12/06/24 17:30 Mucosa - Nose SARS-CoV-2, Influenza & RSV (PCR) - Final Influenzae A Goal Trough Goal Trough: 15-20 mcg/mL Pharmacy Plan for Drug Dosing Pharmacy Plan for Drug Dosing: Pharmacy Service will continue to monitor and adjust dosing as required. TROUGH 5.5 @ 6 HOURS, INCREASE TO 1250MG Q8H AND FOLLOW UP TROUGH PRIOR TO 4TH DOSE Follow-Up Labs Follow-Up Labs: Trough: Vancomycin Date/Time Labs Ordered Labs to be done on [date and time ordered]: 12/08 @ 2029
[2024-12-08] VITALS (15 sets, daily range): BP systolic 101–114; BP diastolic 65–75; PULSE 74–114; RESP 12–20; TEMP 36–36.9; O2SAT 90–98; BMI 19.5
[2024-12-08] MEDS: Ipratropium/Albuterol Sulfate 3 ML AMPUL.NEB INHALATION ×4 (03:55→22:50)
[2024-12-08] MEDS: buprenorphine HCL 8 MG TAB.SUBL SL ×3 (05:04→21:31)
[2024-12-08] MEDS: Gabapentin 800 MG Tablet PO ×3 (05:04→21:18)
[2024-12-08 07:51] LABS: Absolute Lymphocyte Count 0.84 X10^3/uL (0.83-4.51); Absolute Neutrophil Count 9.4 X10^3/uL (2.0-7.7); Basophil# 0.02 X10^3/uL; Basophil% 0.2 % (0-1); Hematocrit 34.3 % (37-47); Hemoglobin 11.6 g/dL (12.0-15.0); Lymphocyte # 0.84 X10^3/ul (0.83-4.51); Lymphocyte % 7.9 % (19-41); Mean Corp Hgb Conc 33.8 g/dL (32-36); Mean Corpuscular Hgb 27.4 pg (27.0-32.0); Mean Corpuscular Volume 80.9 fL (81-99); Mean Platelet Vol. 10.6 fl (6.2-12.0); Monocyte# 0.25 X10^3/uL; Monocyte% 2.4 % (0-10); NRBC Flagged by Analyzer 0 % (0-5); Neutrophil # 9.43 X10^3/uL (2.7-7.7); Neutrophil % 88.9 % (47-70); Platelet Count 465 K/mm3 (150-450); RBC Distribution Width CV 14.2 % (11.6-14.6); RBC Distribution Width SD 41.6 fl (35.1-43.9); Red Blood Count 4.24 M/mm3 (4.2-5.4); White Blood Count 10.6 K/mm3 (4.4-11.0)
[2024-12-08 08:02] LABS: Anion Gap 7 (5-15); BUN 9 mg/dL (7-18); BUN/Creat Ratio 26.4 RATIO (10-20); Chloride 106 mmol/L (98-107); Creatinine, Serum 0.34 mg/dL (0.55-1.02); EST Glomerular Filtration Rate 243 mL/min (>60); Est Glom Filt Rate - Afr Amer 294 mL/min (>60); Estimated Creatinine Clearance 235.02 ml/min; Glucose 145 mg/dL (74-106); Potassium 3.9 mmol/L (3.5-5.1); Sodium Level 137 mmol/L (136-145)
[2024-12-08] MEDS: guaiFENesin 1,200 MG Tablet 1200 MG PO ×2 (08:17→21:18)
[2024-12-08] MEDS: Vancomycin HCl 1,250 MG in 0.9% Normal Saline (250mL Bag) 250 ML 167 MG IV ×2 (08:17→16:36)
[2024-12-08] MEDS: Enoxaparin 40 MG/0.4 ML Syringe SC (08:17)
[2024-12-08] MEDS: Oseltamivir Phosphate 75 MG Capsule PO ×2 (08:18→21:18)
[2024-12-08] MEDS: clonazePAM 1 MG Tablet PO ×2 (08:59→21:31)
--- NOTE | 2024-12-08 10:43 | PCM.PN.INT ---
Assessment & Plan Assessment/Plan (1) Influenza A: PLAN: Plan RECOMMENDATIONS: 1. Supplemental oxygen to maintain saturations at or above 90%. 2. Continue scheduled bronchodilators and steroids. 3. Continue empiric antimicrobials. 4. Continue appropriate DVT prophylaxis. 5. Encourage incentive spirometer use and mobilize patient as tolerated. 6. Nicotine replacement therapy while admitted to the hospital. 7. Outpatient pulmonary follow-up after discharge. 8. Administer IV Lasix today as ordered. IMPRESSIONS: 1. Shortness of breath and hypoxemia I do suspect that the patient may have an underlying component of bronchospastic airway disease, which is likely in a state of exacerbation due to influenza A and questionable secondary bacterial pneumonia. She does have an extensive tobacco abuse history for only being 28 years old. At this time, it is reasonable to continue antimicrobials and supplemental oxygen to maintain saturations at or above 90%. The patient will be continued on scheduled bronchodilators and will be continued on corticosteroids. I do suspect that she would benefit from outpatient pulmonary follow-up after discharge. Smoking cessation is strongly advisable. Lastly, given the patient's current volume status, will administer IV Lasix x 1 today. 2. History of prior substance abuse/tobacco dependency/anxiety Complicates care, management, recovery and prognosis. Continue home medications as indicated. This note was generated with [employer] dictation software. It may contain incorrect words, spelling, and punctuation that were not noted in checking the note before signing. Subjective Subjective The patient was seen and examined at the bedside this morning. Events from the last 24 hours have been reviewed. The patient is currently afebrile, hemodynamically stable and maintaining appropriate oxygen saturations on 6 L/min via nasal cannula. The patient remains quite tearful this morning regarding her ongoing need for hospitalization. She is documented to be overall net +8.6 L for the hospitalization. White blood cell count has normalized. Hemoglobin and platelet count are stable. Chemistry profile was unremarkable. Objective Data Objective Data The patient's most recent lab work, culture data and imaging studies have all been personally reviewed. Influenza A PCR was positive on December 06. Vital Signs: Vital Signs Temp Pulse Resp BP Pulse Ox O2 Del Method O2 Flow Rate 96.9 F L 95 16 112/69 93 High Flow 6 12/08/24 09:00 12/08/24 09:00 12/08/24 09:00 12/08/24 09:00 12/08/24 09:00 12/08/24 09:00 12/08/24 09:00 Oxygen Flow Rate (L/min) 6 Oxygen Delivery Method High Flow Weight: 132 lb 0.91 oz Body Mass Index (BMI) 19.5 Intake & Output: Intake and Output for Last 24 Hours 12/06/24 12/07/24 12/08/24 23:59 23:59 23:59 Intake Total 3070 / 3070 3785 / 4285 2049 Output Total 250 / 250 0 / 0 Balance 2820 / 2820 3785 / 4285 2049 Lab / Micro Data Attestation: I reviewed the patient's lab results. 12/08/24 07:39 12/08/24 07:39 Labs: Laboratory Results - last 24 hr 12/07/24 14:15: TSH 1.630 12/07/24 19:56: Vancomycin Trough 5.5 12/08/24 07:39: WBC 10.6, RBC 4.24, Hgb 11.6 L, Hct 34.3 L, MCV 80.9 L, MCH 27.4, MCHC 33.8, RDW Std Deviation 41.6, RDW Coeff of Daisy 14.2, Plt Count 465 H, MPV 10.6, Immature Gran % (Auto) 0.600, Neut % (Auto) 88.9 H, Lymph % (Auto) 7.9 L, Hawkins % (Auto) 2.4, Eos % (Auto) 0.0, Baso % (Auto) 0.2, Absolute Neuts (auto) 9.4 H, Absolute Lymphs (auto) 0.84, Nucleated RBC % 0, Sodium 137, Potassium 3.9, Chloride 106, Carbon Dioxide 24.0, Anion Gap 7, BUN 9, Creatinine 0.34 L, Estim Creat Clear Calc 235.02, Est GFR (MDRD) Af Amer 294, Est GFR (MDRD) Non-Af 243, BUN/Creatinine Ratio 26.4 H, Glucose 145 H, Calcium 9.0 Micro: Microbiology 12/06/24 23:30 Urine, Random Legionella Antigen - Final 12/06/24 23:30 Urine, Random Streptococcus pneumoniae Antigen (M - Final 12/06/24 17:30 Mucosa - Nose SARS-CoV-2, Influenza & RSV (PCR) - Final Influenzae A Radiography Diagnostic Testing: Radiology Impression Chest CTA 12/07/24 10:34 IMPRESSION: Extensive patchy consolidative opacities which may represent nonspecific pneumonia pneumonia/inflammation. Although none are cavitary, septic emboli can be considered if there is a history of intravenous drug use. Given scattered granulomas, mycobacterial infection can be considered. Sarcoidosis and fungal infections can also be included in the differential. Lymphoma is possible, but less likely. Mediastinal lymphadenopathy. One or more dose reduction techniques were used (e.g., Automated exposure control, adjustment of the mA and/or kV according to patient size, use of iterative reconstruction technique). Reading Location: [id number] Echocardiogram 12/07/24 10:34 Interpretation Summary Normal LV size. Left ventricular systolic function is normal. The left ventricular ejection fraction is 55 %. Structurally normal valves. Ordering Physician: Shante Reyes Performed By: Hector Thornton RCS Rhythm Strip Rhythm Strip: Sinus Tach Rate: 152 Ectopy: None Physical Exam Const alert, oriented x3 and no apparent distress Constitutional Narrative: Tearful during my interaction with her. General Appearance: cooperative HEENT normocephalic, head/scalp atraumatic and moist oral mucous membranes Teeth and Gingiva: poor dentition Eyes PERRL, EOMs intact bilaterally and conjunctivae normal Neck supple General: trachea midline Chest inspection of chest normal Resp no use of accessory muscles Auscultation: rales and diminished lung sounds; Negative for rhonchi or wheezes Cardio regular rate, regular rhythm, S1 normal heart sound and S2 normal heart sound GI normal to inspection, nondistended, normoactive bowel sounds Extremity no clubbing, cyanosis or edema Skin no rashes or lesions noted Neuro CN's II-XII intact bilaterally, moves all extremities and no focal motor deficits Psych Mood & Affect: anxious Charges/Coding Visit Charges Inpatient E&M: 13031 Subs Hosp L2
--- NOTE | 2024-12-08 10:46 | PCM.PROGNOTE ---
Subjective Subjective Patient seen and examined. She had no active complaints. She says she felt her breathing had improved. She was weaned down to 3 L of oxygen overnight but was up to 6 L of oxygen this morning. Her tachycardia is improving. Review of systems otherwise negative. Objective Data Objective Data Vital Signs: Vital Signs Temp Pulse Resp BP Pulse Ox O2 Del Method O2 Flow Rate 96.9 F L 95 16 112/69 93 High Flow 6 12/08/24 09:00 12/08/24 09:00 12/08/24 09:00 12/08/24 09:00 12/08/24 09:00 12/08/24 09:00 12/08/24 09:00 Oxygen Flow Rate (L/min) 6 Oxygen Delivery Method High Flow Weight: 132 lb 0.91 oz Body Mass Index (BMI) 19.5 Intake & Output: Intake and Output for Last 24 Hours 12/06/24 12/07/24 12/08/24 23:59 23:59 23:59 Intake Total 3070 / 3070 3785 / 4285 2049 Output Total 250 / 250 0 / 0 Balance 2820 / 2820 3785 / 4285 2049 Lab / Micro Data 12/08/24 07:39 12/08/24 07:39 Labs: Laboratory Results - last 24 hr 12/07/24 14:15: TSH 1.630 12/07/24 19:56: Vancomycin Trough 5.5 12/08/24 07:39: WBC 10.6, RBC 4.24, Hgb 11.6 L, Hct 34.3 L, MCV 80.9 L, MCH 27.4, MCHC 33.8, RDW Std Deviation 41.6, RDW Coeff of Daisy 14.2, Plt Count 465 H, MPV 10.6, Immature Gran % (Auto) 0.600, Neut % (Auto) 88.9 H, Lymph % (Auto) 7.9 L, Heard % (Auto) 2.4, Eos % (Auto) 0.0, Baso % (Auto) 0.2, Absolute Neuts (auto) 9.4 H, Absolute Lymphs (auto) 0.84, Nucleated RBC % 0, Sodium 137, Potassium 3.9, Chloride 106, Carbon Dioxide 24.0, Anion Gap 7, BUN 9, Creatinine 0.34 L, Estim Creat Clear Calc 235.02, Est GFR (MDRD) Af Amer 294, Est GFR (MDRD) Non-Af 243, BUN/Creatinine Ratio 26.4 H, Glucose 145 H, Calcium 9.0 Micro: Microbiology 12/06/24 23:30 Urine, Random Legionella Antigen - Final 12/06/24 23:30 Urine, Random Streptococcus pneumoniae Antigen (M - Final 12/06/24 17:30 Mucosa - Nose SARS-CoV-2, Influenza & RSV (PCR) - Final Influenzae A Radiography Diagnostic Testing: Radiology Impression Chest CTA 12/07/24 10:34 IMPRESSION: Extensive patchy consolidative opacities which may represent nonspecific pneumonia pneumonia/inflammation. Although none are cavitary, septic emboli can be considered if there is a history of intravenous drug use. Given scattered granulomas, mycobacterial infection can be considered. Sarcoidosis and fungal infections can also be included in the differential. Lymphoma is possible, but less likely. Mediastinal lymphadenopathy. One or more dose reduction techniques were used (e.g., Automated exposure control, adjustment of the mA and/or kV according to patient size, use of iterative reconstruction technique). Reading Location: [facility] Echocardiogram 12/07/24 10:34 Interpretation Summary Normal LV size. Left ventricular systolic function is normal. The left ventricular ejection fraction is 55 %. Structurally normal valves. Ordering Physician: Shante Reyes Performed By: Hector Thornton RCS Rhythm Strip Rhythm Strip: Sinus Tach Rate: 152 Ectopy: None Physical Exam Const alert and oriented x3 Constitutional Narrative: anxious General Appearance: cooperative HEENT normocephalic, head/scalp atraumatic, moist oral mucous membranes and oropharynx normal Eyes PERRL and EOMs intact bilaterally Neck no lymphadenopathy, supple and no JVD Lymph Lymphatic: no lymphadenopathy noted and no lymphedema noted Resp Resp Narrative: diminished breath sounds bilaterally, bilateral coarse crackles. Tachypneic and tachycardic. On 6 L of oxygen. Cardio regular rhythm, S1 normal heart sound, S2 normal heart sound and no murmurs Cardio Narrative: tachycardia GI normal to inspection, nondistended, normoactive bowel sounds, soft to palpation, non-tender and non-distended Extremity normal capillary refill, no clubbing, cyanosis or edema and no calf tenderness General Extremity: no tenderness to palpation of joints or extremities Skin General Skin Exam: no breakdown Neuro CN's II-XII intact bilaterally and no focal motor deficits Motor Exam: strength 5/5 throughout Psych Attitude: agitated Mood & Affect: anxious Assessment & Plan Assessment/Plan (1) Influenza A: (2) Acute hypoxemic respiratory failure: PLAN: Plan #Sepsis due to multifocal pneumonia Patient admitted with tachycardia and tachypnea was hypoxic as well. Chest x-ray showed multifocal pneumonia she also tested positive for influenza. Currently on IV ceftriaxone and azithromycin as well as vancomycin. On Tamiflu. Urine for strep and Legionella negative. Blood cultures pending. Sputum culture also pending. [employer] on board. Titrate oxygen to maintain saturation above 90%. #Acute hypoxic respiratory failure due to influenza and multifocal pneumonia Now down to 6 L of oxygen as above. Went as low as 3 L of oxygen overnight management as above. #UTI: Urinalysis also showed 3+ bacteria. Urine cultures ordered and pending. On IV ceftriaxone. Will await urine culture results. #Sinus tachycardia Improving. TSH within normal limits. CT of the chest done was negative for PE but showed multifocal pneumonia. 2D echo showed EF of 55% with no regional wall motion abnormalities and normal ventricular systolic function and structurally normal valves Plan was to start patient on p.o. metoprolol but her heart rate improved and so she was not given the p.o. metoprolol. Likely due to anxiety and also driven by the underlying pneumonia and influenza will monitor #Nicotine dependence: Was smoking up to 2 packs of cigarettes daily. Counseled to quit. Nicotine patch 21 mg daily. #History of anxiety: On Klonopin and gabapentin #DVT Prophylaxis: Lovenox Charges/Coding Visit Charges Inpatient E&M: 12739 Subs Hosp L2
[2024-12-08] MEDS: 0.9% Saline Lock 10 ML Syringe IV (11:06)
[2024-12-08] MEDS: Furosemide 40 MG/4 ML Vial IV (11:06)
--- NOTE | 2024-12-08 12:13 | CHAPLAIN ---
Type of Pastoral Visit _x__ Initial Visit ___ Follow-up Visit ___ On-call Visit ___ General Patient Visit ___ Spiritual Assessment ___ Family Conference ___ Bereavement ___ Rapid Response ___ Code Blue ___ Other (describe below) Pastoral Care Referral From _x__ Patient ___ Family ___ Nurse ___ Physician ___ Rehabilitation Therapy Technician ___ Dispatch Specialist ___ Other (describe below) Sacrament/Intervention _x__ Active listening ___ Anointing ___ Judaism ___ Bereavement ___ Communion _x__ Angelita exploration ___ _x__ Life review _x__ Prayer ___ Reconciliation ___ Sacrament of Sick _x__ Supportive presence ___ Wedding ___ Other (describe below) Pastoral Comments patient begins immediately to cry when asked about how she is doing; pt speaks of anxiety over missing her three young children and that my may lose his job because I'm not there to take care of the kids; pt acknowledges that her mother is also available for child day care provider; offered sympathetic understanding to her feelings and also offered suggestions on how to focus on her need to get well and to pass the time; pt goal is to be discharged esdras but acknowledges in conversation that she should stay to get maximum help in healing and recovery; time to listen and offer reflection; pt is not anglican but welcomed a prayer;
[2024-12-08] MEDS: Ceftriaxone 2 GM in 0.9% Normal Saline (50mL MB+) 50 ML IV (21:18)
[2024-12-08] MEDS: Azithromycin 500 MG in 0.9% Normal Saline (250mL Bag) 250 ML 250 MG IV (21:58)
[2024-12-08 23:46] LABS: Vancomycin, Trough Level 11.1 ug/mL (5.0-15.0)
[2024-12-09] VITALS (8 sets, daily range): BP systolic 116–123; BP diastolic 64–82; PULSE 84–118; RESP 15–22; TEMP 36.6–36.9; O2SAT 86–98; BMI 19.9
[2024-12-09] MEDS: Vancomycin Trough/Random Due 1 LAB MC (00:15)
[2024-12-09] MEDS: Vancomycin HCl 1,500 MG in 0.9% Normal Saline (500mL Bag) 500 ML 250 MG IV ×2 (00:20→08:28)
[2024-12-09] MEDS: 0.9% Saline Lock 10 ML Syringe IV (00:23)
[2024-12-09] MEDS: Ipratropium/Albuterol Sulfate 3 ML AMPUL.NEB INHALATION ×3 (03:25→11:11)
--- NOTE | 2024-12-09 03:27 | PCM.RX.CS ---
Consult Antibiotic Management Pharmacy has been consulted to manage selected antibiotic: Vancomycin Type of Intervention Type of Consult: Follow-up Labs Labs: Sodium 137 mmol/L (136-145) 12/08/24 07:39 Potassium 3.9 mmol/L (3.5-5.1) 12/08/24 07:39 Chloride 106 mmol/L (98-107) 12/08/24 07:39 Carbon Dioxide 24.0 mmol/L (21.0-32.0) 12/08/24 07:39 Anion Gap 7 (5-15) 12/08/24 07:39 BUN 9 mg/dL (7-18) 12/08/24 07:39 Creatinine 0.34 mg/dL (0.55-1.02) L 12/08/24 07:39 Est GFR (MDRD) Af Amer 294 mL/min (>60) 12/08/24 07:39 Est GFR (MDRD) Non-Af 243 mL/min (>60) 12/08/24 07:39 BUN/Creatinine Ratio 26.4 RATIO (10-20) H 12/08/24 07:39 Glucose 145 mg/dL (74-106) H 12/08/24 07:39 Vancomycin Trough 11.1 ug/mL (5.0-15.0) 12/08/24 23:08 Microbiology Microbiology: Microbiology 12/06/24 19:36 Sputum, Expectorated/Coughed Gram Stain - Final 12/06/24 19:36 Sputum, Expectorated/Coughed Respiratory Culture - Preliminary GNR lactose community education specialist 12/06/24 23:30 Urine, Random Legionella Antigen - Final 12/06/24 23:30 Urine, Random Streptococcus pneumoniae Antigen (M - Final 12/06/24 17:30 Mucosa - Nose SARS-CoV-2, Influenza & RSV (PCR) - Final Influenzae A Goal Trough Goal Trough: 15-20 mcg/mL Pharmacy Plan for Drug Dosing Pharmacy Plan for Drug Dosing: Pharmacy Service will continue to monitor and adjust dosing as required. TROUGH 11.1 @ 6.5 hours. increase to 1500mg q8h and follow up trough prior to 4th dose Follow-Up Labs Follow-Up Labs: Trough: Vancomycin Date/Time Labs Ordered Labs to be done on [date and time ordered]: 12/09 @ 9103
[2024-12-09] MEDS: Gabapentin 800 MG Tablet PO ×2 (05:58→13:31)
[2024-12-09] MEDS: buprenorphine HCL 8 MG TAB.SUBL SL ×2 (05:59→13:31)
[2024-12-09 07:32] LABS: Absolute Lymphocyte Count 1.17 X10^3/uL (0.83-4.51); Absolute Neutrophil Count 14.2 X10^3/uL (2.0-7.7); Basophil# 0.04 X10^3/uL; Basophil% 0.3 % (0-1); Hematocrit 31.7 % (37-47); Hemoglobin 10.6 g/dL (12.0-15.0); Lymphocyte # 1.17 X10^3/ul (0.83-4.51); Lymphocyte % 7.4 % (19-41); Mean Corp Hgb Conc 33.4 g/dL (32-36); Mean Corpuscular Volume 80.7 fL (81-99); Mean Platelet Vol. 10.5 fl (6.2-12.0); Monocyte# 0.28 X10^3/uL; Monocyte% 1.8 % (0-10); NRBC Flagged by Analyzer 0 % (0-5); Neutrophil % 89.6 % (47-70); Platelet Count 504 K/mm3 (150-450); RBC Distribution Width CV 14.3 % (11.6-14.6); RBC Distribution Width SD 42.2 fl (35.1-43.9); Red Blood Count 3.93 M/mm3 (4.2-5.4); White Blood Count 15.8 K/mm3 (4.4-11.0)
[2024-12-09 08:11] LABS: Anion Gap 5 (5-15); BUN 12 mg/dL (7-18); BUN/Creat Ratio 39.1 RATIO (10-20); Calcium,Total 9.2 mg/dL (8.5-10.1); Chloride 107 mmol/L (98-107); Creatinine, Serum 0.31 mg/dL (0.55-1.02); EST Glomerular Filtration Rate 274 mL/min (>60); Est Glom Filt Rate - Afr Amer 332 mL/min (>60); Estimated Creatinine Clearance 263.36 ml/min; Glucose 145 mg/dL (74-106); Potassium 4.3 mmol/L (3.5-5.1); Sodium Level 139 mmol/L (136-145)
[2024-12-09] MEDS: Enoxaparin 40 MG/0.4 ML Syringe SC (08:28)
[2024-12-09] MEDS: guaiFENesin 1,200 MG Tablet 1200 MG PO (08:29)
[2024-12-09] MEDS: Oseltamivir Phosphate 75 MG Capsule PO (08:29)
[2024-12-09] MEDS: clonazePAM 1 MG Tablet PO (08:35)
--- NOTE | 2024-12-09 09:31 | PCM.PN.INT ---
Assessment & Plan Assessment/Plan (1) Influenza A: PLAN: Plan RECOMMENDATIONS: 1. Supplemental oxygen to maintain saturations at or above 90%. 2. Continue scheduled bronchodilators and steroids. 3. At discharge, I would recommend a 5-day burst of prednisone 40 mg daily. 4. At discharge, the patient be transition to Levaquin to finish a treatment course of 7 days. 5. Tamiflu to complete treatment course. 6. Encourage incentive spirometer use and mobilize patient as tolerated. 7. Perform walking oximetry prior to consideration for discharge home. 8. Outpatient pulmonary follow-up after discharge. Please call with any additional questions. IMPRESSIONS: 1. Shortness of breath and hypoxemia I do suspect that the patient may have an underlying component of bronchospastic airway disease, which is likely in a state of exacerbation due to influenza A and questionable secondary bacterial pneumonia. She does have an extensive tobacco abuse history for only being 28 years old. At this time, it is reasonable to continue antimicrobials and supplemental oxygen to maintain saturations at or above 90%. The patient will be continued on scheduled bronchodilators and will be continued on corticosteroids. I do suspect that she would benefit from outpatient pulmonary follow-up after discharge. Smoking cessation is strongly advisable. 2. History of prior substance abuse/tobacco dependency/anxiety Complicates care, management, recovery and prognosis. Continue home medications as indicated. This note was generated with [employer] dictation software. It may contain incorrect words, spelling, and punctuation that were not noted in checking the note before signing. Subjective Subjective The patient was seen and examined at the bedside this morning. Events from the last 24 hours have been reviewed. The patient is currently afebrile, hemodynamically stable and maintaining appropriate oxygen saturations on 3 L/min via nasal cannula. The patient again becomes tearful when discussing feasibility of going home. Her white count is elevated at 15,000. Hemoglobin and platelet count are stable. Chemistry profile was unremarkable. Objective Data Objective Data The patient's most recent lab work, culture data and imaging studies have all been personally reviewed. Influenza A PCR was positive on December 06. Vital Signs: Vital Signs Temp Pulse Resp BP Pulse Ox O2 Del Method O2 Flow Rate 97.8 F 103 H 17 123/71 H 93 High Flow 3 12/09/24 08:26 12/09/24 08:26 12/09/24 08:26 12/09/24 08:26 12/09/24 08:26 12/09/24 08:26 12/09/24 08:26 Oxygen Flow Rate (L/min) 3 Oxygen Delivery Method High Flow Weight: 134 lb 14.766 oz Body Mass Index (BMI) 19.9 Intake & Output: Intake and Output for Last 24 Hours 12/07/24 12/08/24 12/09/24 23:59 23:59 23:59 Intake Total 3785 / 4285 2850 / 2850 530 / 530 Output Total 0 / 0 600 / 600 Balance 3785 / 4285 2250 / 2250 530 / 530 Lab / Micro Data Attestation: I reviewed the patient's lab results. 12/09/24 07:20 12/09/24 07:20 Labs: Laboratory Results - last 24 hr 12/08/24 23:08: Vancomycin Trough 11.1 12/09/24 07:20: WBC 15.8 H, RBC 3.93 L, Hgb 10.6 L, Hct 31.7 L, MCV 80.7 L, MCH 27.0, MCHC 33.4, RDW Std Deviation 42.2, RDW Coeff of Daisy 14.3, Plt Count 504 H, MPV 10.5, Immature Gran % (Auto) 0.900, Neut % (Auto) 89.6 H, Lymph % (Auto) 7.4 L, Morrow % (Auto) 1.8, Eos % (Auto) 0.0, Baso % (Auto) 0.3, Absolute Neuts (auto) 14.2 H, Absolute Lymphs (auto) 1.17, Nucleated RBC % 0, Sodium 139, Potassium 4.3, Chloride 107, Carbon Dioxide 28.0, Anion Gap 5, BUN 12, Creatinine 0.31 L, Estim Creat Clear Calc 263.36, Est GFR (MDRD) Af Amer 332, Est GFR (MDRD) Non-Af 274, BUN/Creatinine Ratio 39.1 H, Glucose 145 H, Calcium 9.2 Micro: Microbiology 12/06/24 19:36 Sputum, Expectorated/Coughed Gram Stain - Final 12/06/24 19:36 Sputum, Expectorated/Coughed Respiratory Culture - Final Escherichia coli Presumptive C albicans 12/06/24 18:02 Blood Culture (Wb) - Anticubital Left Blood Culture - Preliminary No growth in 48 hours. 12/06/24 17:40 Blood Culture (Wb) - Anticubital Right Blood Culture - Preliminary No growth in 48 hours. 12/06/24 23:30 Urine, Random Legionella Antigen - Final 12/06/24 23:30 Urine, Random Streptococcus pneumoniae Antigen (M - Final 12/06/24 17:30 Mucosa - Nose SARS-CoV-2, Influenza & RSV (PCR) - Final Influenzae A Radiography Diagnostic Testing: Radiology Impression Chest CTA 12/07/24 10:34 IMPRESSION: Extensive patchy consolidative opacities which may represent nonspecific pneumonia pneumonia/inflammation. Although none are cavitary, septic emboli can be considered if there is a history of intravenous drug use. Given scattered granulomas, mycobacterial infection can be considered. Sarcoidosis and fungal infections can also be included in the differential. Lymphoma is possible, but less likely. Mediastinal lymphadenopathy. One or more dose reduction techniques were used (e.g., Automated exposure control, adjustment of the mA and/or kV according to patient size, use of iterative reconstruction technique). Reading Location: [facility] Echocardiogram 12/07/24 10:34 Interpretation Summary Normal LV size. Left ventricular systolic function is normal. The left ventricular ejection fraction is 55 %. Structurally normal valves. Ordering Physician: Shante Reyes Performed By: Hectro Thornton RCS Rhythm Strip Rhythm Strip: Sinus Tach Rate: 152 Ectopy: None Physical Exam Const alert, oriented x3 and no apparent distress General Appearance: cooperative HEENT normocephalic, head/scalp atraumatic and moist oral mucous membranes Teeth and Gingiva: poor dentition Eyes PERRL, EOMs intact bilaterally and conjunctivae normal Neck supple General: trachea midline Chest inspection of chest normal Resp no use of accessory muscles Auscultation: rales and diminished lung sounds; Negative for rhonchi or wheezes Cardio regular rate, regular rhythm, S1 normal heart sound and S2 normal heart sound GI normal to inspection, nondistended, normoactive bowel sounds Extremity no clubbing, cyanosis or edema Skin no rashes or lesions noted Neuro CN's II-XII intact bilaterally, moves all extremities and no focal motor deficits Psych Mood & Affect: anxious Charges/Coding Visit Charges Inpatient E&M: 23004 Subs Hosp L2
--- NOTE | 2024-12-09 10:25 | CASEMGMT ---
Addendum entered by Fabián Ramirez 12/09/24 18:13: MECHELLE LU placed call to pt. Pt states [employer] is there now w/her (@ her mom's home) delivering the home o2. Addendum entered by Fabián Ramirez 12/09/24 17:44: Pt called into ICU stating [employer] requesting order for concentrator. MECHELLE LU spoke w/her. She states she is @ her mom's home and that is where the O2 is to be delivered ([address] She states he did notify Kris, [facility] liaison, about this and provided her mom's address to him. MECHELLE LU sent updated script to [facility] via [employer] and also faxed this to [facility]. Call placed to Kris @ [facility], unable to reach him. Call placed to [facility] corporate, they still had not received the updated script. MECHELLE LU was then able to reach Kris, who confirmed w[facility] that they received new script for O2 concentrator, in addition to the portability. He also confirmed that the hazmat truck driver is aware O2 to be delivered to her mom's address @ [address] MECHELLE LU placed call back to pt, she was notified to call [employer] back to arrange delivery of home O2. MECHELLE LU then received call from Kris @ [facility] stating he was informed pt is now stating she does not want the home O2. Call placed back to pt and she verified she does still want the home O2 and is awaiting delivery. She states she called [employer], completed the on-line profile, and updated her mom's address on-line for the delivery location. Kris made aware and then confirmed w/this MECHELLE LU that O2 to be delivered to pt's home tonight. Addendum entered by Fabián Ramirez 12/09/24 13:03: Home O2 testing has been completed. Pt qualifies for O2 @ 2 L/M @ rest and 4 L/M w/exertion. Script obtained from Dr Reyes and sent to [employer] via [employer]. Addendum entered by Fabián Ramirez 12/09/24 10:58: Pt verifies she plans to make f/u with [facility] pulmonology @ discharge. Addendum entered by Fabián Ramirez 12/09/24 10:31: Pt states she plans to purchase a pulse ox and states knows where she can buy one. She also states she would like to get any new Rx's from [facility] pharmacy. [employer] updated. Original Note: MECHELLE LU note: MECHELLE LU to room. Introduced self and role. Pt sitting up in bed w/O2 in place. Discussed possible need for O2 @ discharge. Pt states would like to use [employer]. Discussed home O2 set-up process. Pt voices understanding. She denies having other discharge needs/concerns at this time. Made aware to ask for RN TABITHA if any needs arise. She voices much appreciation. Balwinder CRAFT RN, CM
[2024-12-09] MEDS: Furosemide 40 MG/4 ML Vial IV (11:16)
--- NOTE | 2024-12-09 12:53 | CASEMGMT ---
Addendum entered by Georgette Mendes 12/09/24 13:26: Social Work Pt is discharged. SW let pt know, she is very grateful to be able to go home today. SW inquired if pt is in counseling, she states she is, is happy with her counselor. SW asked about her children, she states her oldest is in first grade and does have anxiety, has her in counseling also and has medication if needed. SW offered support to pt, pt very glad she is going home to her family today. No further social service needs anticipated. MARCOS Welsh Original Note: Social Work SW met w/pt to offer support. Pt really wants to go home today, tearful throughout the conversation. She states she has anxiety and has entrapment. She states everyone else is telling her she can go home but the doctor said no. SW explained will text the doctor to see what she says. Pt states she will leave AMA. SW texted the physician, she is going to let SW know. SW will continue to follow. MARCOS Welsh
--- NOTE | 2024-12-09 13:00 | DCINST_ITS ---
Discharge Instructions Diet Discharge Diet: Low fat / Low cholesterol DC O2, CPAP, BIPAP needs RN Home O2 Qualification: Home O2 Qualification: Is the patient on home oxygen No 12/09/24 11:22 Home O2 Qualification: AT REST 1- Pulse Ox at rest 86 12/09/24 11:22 2- Pulse Ox at rest 92 12/09/24 11:22 2- Oxygen Flow Rate at rest 2 12/09/24 11:22 Home O2 Qualification: WITH AMBULATION 1- Pulse Ox with ambulation 87 12/09/24 11:22 1- Oxygen Flow Rate with 2 12/09/24 11:22 ambulation 2- Pulse Ox with ambulation 92 12/09/24 11:22 2- Oxygen Flow Rate with 4 12/09/24 11:22 ambulation Home O2 Discharge instructions: Yes Type of respiratory needs?: Oxygen Oxygen frequency: With Ambulation Oxygen liters per minute during Ambulation: 4 Dressing / Incision Call your doctor if you observe: Fever of 101 or Higher, Shortness of breath, Dizziness, Swelling in the ankles and Chest pain Follow Up Care Test Results: Test results from this visit will be discussed in further detail at your follow- up appointment, if applicable. Discharge Plan Admission Admit Date/Time: 12/06/24 19:19 Primary Reason for Your Visit: acute hypoxic respiratory failure due to pneumonia, influenza Attending Provider: Shante Reyes Primary Care Provider: SANDEEP,DEFINED Consulting Providers: Krystian Frey; Sunny Izquierdo; Wesley Delacruz; Nelson Martinez; Vu White; Familia Denis; Thony Matute; Sarita Huston; Saqib Cornejo; Awais Gaines; Adalberto Crocker; Anita Jaimes; Cristiana Roberts; Alisa,Jaycee; Rajan,Aren; Rodri,Roberto; Brian Palomino; Hawk Parikh; Catalino Goldberg; Nemo Mejia; Harry Delacruz; Siva Tinoco; Pedro Murphy; Ankit Vargas; Lisa Dias NP; Megan Esteban; Paradise Aguilera Instructions Patient Instructions: ED Influenza (Adult), ED Pneumonia (Adult) Additional Instructions / Restrictions: use oxygen 4L with ambulation, 2L at rest for shortness of breath. Discharge Orders/Prescriptions Prescriptions: New prednisone 20 mg tablet 40 mg PO DAILY Qty: 10 0RF levofloxacin 750 mg tablet 750 mg PO DAILY Qty: 5 0RF oseltamivir 75 mg capsule 75 mg PO BID 3 Days Qty: 6 0RF Continued gabapentin 300 mg capsule 800 mg PO TID clonazepam 1 mg tablet 1 mg PO BID buprenorphine HCl 8 mg tablet, sublingual 8 mg sublingual TID Referrals / Follow Up: Nelson Martinez DO [Med Staff - Active Staff] - Within 2 Weeks NOT,DEFINED [Primary Care Provider] - Dominguez Meadows MD [[facility]] - Within 2 Weeks (see to establish pcp care) Disposition Disposition (needs filled in before D/C Order can be placed): Home, Self Care
--- NOTE | 2024-12-09 13:01 | PCM.DC.SUM ---
Providers Date of Admission: 12/06/24 Date of Discharge: 12/09/24 Primary Care Physician: NOT DEFINED Consultations 12/06/24 21:46 Consult: Hat Ironer / Pulmonary Medicine Routine Consulting Provider: Pulmonary Medicine matt [place] Reason for Consult: acutely ill w/ PNA and influenza, suspect sepsis EMERGENT Consult: No MD Notified: Yes Date Notified: 12/07/24 Time Notified: 06:06 Method of Notification: Text Reason For Visit: INCREASING SOB Diagnosis Discharge Diagnosis (1) Influenza A: Status: Acute Code(s): J10.1 - Influenza due to other identified influenza virus with other respiratory manifestations Plan #Sepsis due to multifocal pneumonia Patient admitted with tachycardia and tachypnea was hypoxic as well. Chest x-ray showed multifocal pneumonia she also tested positive for influenza. Currently on IV ceftriaxone and azithromycin as well as vancomycin. On Tamiflu. Urine for strep and Legionella negative. Blood cultures pending. Sputum culture also pending. Machine Attendant on board. Titrate oxygen to maintain saturation above 90%. #Acute hypoxic respiratory failure due to influenza and multifocal pneumonia Now down to 6 L of oxygen as above. Went as low as 3 L of oxygen overnight management as above. #UTI: Urinalysis also showed 3+ bacteria. Urine cultures ordered and pending. On IV ceftriaxone. Will await urine culture results. #Sinus tachycardia Improving. TSH within normal limits. CT of the chest done was negative for PE but showed multifocal pneumonia. 2D echo showed EF of 55% with no regional wall motion abnormalities and normal ventricular systolic function and structurally normal valves Plan was to start patient on p.o. metoprolol but her heart rate improved and so she was not given the p.o. metoprolol. Likely due to anxiety and also driven by the underlying pneumonia and influenza will monitor #Nicotine dependence: Was smoking up to 2 packs of cigarettes daily. Counseled to quit. Nicotine patch 21 mg daily. #History of anxiety: On Klonopin and gabapentin #DVT Prophylaxis: Lovenox Medications at Discharge Home Medications buprenorphine HCl 8 mg sublingual tablet 8 mg sublingual TID 07/13/23 clonazepam 1 mg tablet 1 mg PO BID 07/13/23 gabapentin 300 mg capsule 800 mg PO TID 07/13/23 levofloxacin 750 mg tablet 750 mg PO DAILY #5 tabs 12/09/24 oseltamivir 75 mg capsule 75 mg PO BID 3 days #6 caps 12/09/24 prednisone 20 mg tablet 40 mg (2 x 20 mg) PO DAILY #10 tabs 12/09/24 Hospital Course Operations None Procedures 2-D Echocardiogram Summary of Care Provided Minutes Spent on Discharge: 45 Hospital Course: Patient is a 28-year-old female with a past medical history as outlined including nicotine dependence was admitted through the ED on 12/06/2024 with a complaint of fever, chills, lightheadedness and shortness of breath as well as cough. Her daughter had been seen in the ED on 11/09/2024 and diagnosed with influenza. Patient's symptoms are started that same day and had continued to worsen. She smoked 2 packs a day but said she had had to cut down smoking 1 to 2 cigarettes a day because of the shortness of breath. In the ED she was saturating at 83% on room air and required 5 L of oxygen. She was febrile with temperature 101.3 ?F and was also tachycardic with heart rate up to 161. Respiratory rate was in the 30s. Blood pressure was 150/91 though it did drop in the ED so she was hydrated with IV fluids. WBC was 26.3. Influenza screen was positive. Chest x-ray showed evidence of multifocal pneumonia. She was admitted and managed for sepsis as well as acute hypoxic respiratory failure due to influenza with superimposed pneumonia. Patient admitted to severe anxiety which was worsened by his shortness of breath. She had been taking buprenorphine, Klonopin and gabapentin at home. Critical care was consulted. She was placed on IV vancomycin, ceftriaxone and azithromycin. Hospital course was complicated by persistent tachycardia so CT of the chest was done which showed no evidence of PE but showed bilateral multifocal pneumonia. TSH was not elevated and 2D echo done showed EF of 55% with no regional wall motion abnormalities noted. Plan had been to start patient on p.o. metoprolol but her tachycardia subsequently improved and normalized. Patient shortness of breath gradually improved and she was weaned down to 3 L of oxygen. Sputum cultures were negative. On 12/09/2024 patient insisted on being discharged home. She had a walking pulse ox which showed that she required 4 L of oxygen with ambulation and 2 L of oxygen at rest. I discussed this with pulmonology was okay with patient being discharged home. Patient was discharged on 12/09/2024 with p.o. Levaquin for 5-day course. She is to follow-up with her primary care doctor within 1 to 2 weeks and to use oxygen for shortness of breath as needed. She was also discharged on p.o. prednisone 40 mg daily for 5 days and was also discharged on p.o. Tamiflu 75 mg twice daily for total of 6 tablets to complete a 5-day course. Patient seen and examined prior to discharge. Patient was quite anxious and tearful because she wanted to be discharged home. Review of systems otherwise negative. Her breathing was improving and she felt like she could go home even though she was still requiring oxygen. Labs and vitals reviewed. Home medication reviewed and reconciled. Physical Exam Const alert, oriented x3 and no apparent distress Constitutional Narrative: anxious General Appearance: cooperative and comfortable Orientation / Consciousness: awake Exam Limitations: no limitations HEENT normocephalic, head/scalp atraumatic, hearing grossly normal bilaterally, moist oral mucous membranes and oropharynx normal Mouth: oral and palatal mucosa normal Eyes PERRL, EOMs intact bilaterally and conjunctivae normal Neck no lymphadenopathy, supple and no JVD Lymph Lymphatic: no lymphadenopathy noted and no lymphedema noted Resp Resp Narrative: diminished breath sounds bilaterally, bilateral coarse crackles. Tachypneic and tachycardic. On 3 L of oxygen. Cardio regular rhythm, S1 normal heart sound, S2 normal heart sound and no murmurs Cardio Narrative: tachycardia GI normal to inspection, nondistended, normoactive bowel sounds, soft to palpation, non-tender and non-distended Extremity normal to inspection, full ROM, no clubbing, cyanosis or edema and no calf tenderness General Extremity: no tenderness to palpation of joints or extremities Skin no rashes or lesions noted General Skin Exam: no breakdown Neuro oriented x3, CN's II-XII intact bilaterally, moves all extremities and no focal motor deficits Sensorium / Orientation: awake Motor Exam: strength 5/5 throughout and general weakness Psych thought process normal and cooperative Mood & Affect: anxious Weight / BMI Weight Weight: 134 lb 14.766 oz Body Mass Index (BMI) 19.9 ABG / Lab / Microbiology Data 12/09/24 07:20 12/09/24 07:20 Laboratory: Laboratory Results - last 24 hr 12/08/24 23:08: Vancomycin Trough 11.1 12/09/24 07:20: WBC 15.8 H, RBC 3.93 L, Hgb 10.6 L, Hct 31.7 L, MCV 80.7 L, MCH 27.0, MCHC 33.4, RDW Std Deviation 42.2, RDW Coeff of Daisy 14.3, Plt Count 504 H, MPV 10.5, Immature Gran % (Auto) 0.900, Neut % (Auto) 89.6 H, Lymph % (Auto) 7.4 L, [place] % (Auto) 1.8, Eos % (Auto) 0.0, Baso % (Auto) 0.3, Absolute Neuts (auto) 14.2 H, Absolute Lymphs (auto) 1.17, Nucleated RBC % 0, Sodium 139, Potassium 4.3, Chloride 107, Carbon Dioxide 28.0, Anion Gap 5, BUN 12, Creatinine 0.31 L, Estim Creat Clear Calc 263.36, Est GFR (MDRD) Af Amer 332, Est GFR (MDRD) Non-Af 274, BUN/Creatinine Ratio 39.1 H, Glucose 145 H, Calcium 9.2 Microbiology: Microbiology 12/06/24 19:36 Sputum, Expectorated/Coughed Gram Stain - Final 12/06/24 19:36 Sputum, Expectorated/Coughed Respiratory Culture - Final Escherichia coli Yeast, not Gertrudis albicans 12/08/24 11:35 Urine, Clean Catch Urine Culture - Preliminary Culture exhibits no growth. 12/06/24 18:02 Blood Culture (Wb) - Anticubital Left Blood Culture - Preliminary No growth in 48 hours. 12/06/24 17:40 Blood Culture (Wb) - Anticubital Right Blood Culture - Preliminary No growth in 48 hours. 12/06/24 23:30 Urine, Random Legionella Antigen - Final 12/06/24 23:30 Urine, Random Streptococcus pneumoniae Antigen (M - Final 12/06/24 17:30 Mucosa - Nose SARS-CoV-2, Influenza & RSV (PCR) - Final Influenzae A D/C Instructions Discharge Diet: Low fat / Low cholesterol Discharge Activity: Return to Normal Activity Weight Bearing Status: Weight bearing as tolerated Call your doctor if you observe: Fever of 101 or Higher, Shortness of breath, Dizziness, Swelling in the ankles and Chest pain DC O2, CPAP, BIPAP Needs RN Home O2 Qualification: Home O2 Qualification: Is the patient on home oxygen No 12/09/24 11:22 Home O2 Qualification: AT REST 1- Pulse Ox at rest 86 12/09/24 11:22 2- Pulse Ox at rest 92 12/09/24 11:22 2- Oxygen Flow Rate at rest 2 12/09/24 11:22 Home O2 Qualification: WITH AMBULATION 1- Pulse Ox with ambulation 87 12/09/24 11:22 1- Oxygen Flow Rate with 2 12/09/24 11:22 ambulation 2- Pulse Ox with ambulation 92 12/09/24 11:22 2- Oxygen Flow Rate with 4 12/09/24 11:22 ambulation Home O2 Discharge instructions: Yes Type of respiratory needs?: Oxygen Oxygen frequency: With Ambulation Oxygen liters per minute during Ambulation: 4 DC home with Oxygen: Yes Home O2 MD Review: I have reviewed the oxygen testing, and the patient qualifies for home oxygen equipment and portability. The patient is mobile in the home and the community. Meaningful Use Info Meaningful Use Meaningful Use Diagnoses (Choose all that apply): None applicable Ischemic Stroke Statin Dosing Therapy Reference: STATIN DOSE THERAPY REFERENCE: * Patients > 75 years receive moderate or high dose statin therapy. * Patients 75 years or YOUNGER should receive HIGH intensity statin dose unless contraindicated. You will be required to document reason for non-treatment if statin daily dose does not meet guidelines. HIGH DOSE STATIN THERAPY DAILY Atorvastatin > than or = to 40 mg Rosuvastatin > than or = to 20 mg Amlodipine + Atorvastatin > than or = to 2.5/40 mg Ezetimibe + Simvastatin 10/80 mg Simvastatin 80mg Discharge Plan Admission Admit Date/Time: 12/06/24 19:19 Primary Reason for Your Visit: acute hypoxic respiratory failure due to pneumonia, influenza Attending Provider: Shante Reyes Primary Care Provider: NOT,DEFINED Consulting Providers: Krystian Frey; Sunny Izquierdo; Wesley Delacruz; Nelson Martinez; Vu White; Familia Denis; Thony Matute; Sarita Huston; Saqib Cornejo; Awais Gaines; Adalberto Crocker; Anita Jaimes; Cristiana Roberts; Jaycee Cuellar; Rajan,Aren; Roberto Mace; Brian Palomino; Hawk Parikh; Catalino Goldberg; Nemo Mejia; Harry Delacruz; Siva Tinoco; Pedro Murphy; Ankit Vargas; Lisa Dias NP; Megan Esteban; Paradise Aguilera Instructions Patient Instructions: ED Influenza (Adult), ED Pneumonia (Adult) Additional Instructions / Restrictions: use oxygen 4L with ambulation, 2L at rest for shortness of breath. Discharge Orders/Prescriptions Prescriptions: New prednisone 20 mg tablet 40 mg PO DAILY Qty: 10 0RF levofloxacin 750 mg tablet 750 mg PO DAILY Qty: 5 0RF oseltamivir 75 mg capsule 75 mg PO BID 3 Days Qty: 6 0RF Continued gabapentin 300 mg capsule 800 mg PO TID clonazepam 1 mg tablet 1 mg PO BID buprenorphine HCl 8 mg tablet, sublingual 8 mg sublingual TID Referrals / Follow Up: Nelson Martinez DO [Med Staff - Active Staff] - Within 2 Weeks NOT,DEFINED [Primary Care Provider] - Dominguez Meadows MD [[facility]] - Within 2 Weeks (see to establish pcp care) Disposition Disposition (needs filled in before D/C Order can be placed): Home, Self Care Charges/Coding Visit Charges Inpatient E&M: 33492 Disch Hosp >30min
== END 2024-12-09 14:33 | disposition home or self-care (01) | DRG 720 ==
LOC: ED 18:51 → ICU 20:03
PROVIDERS: Admitting Provider Internal Medicine; Emergency Provider Emergency Medicine; Visit Provider Student in an Organized Health Care Education/Training Program
DX: A41.51 Sepsis due to Escherichia coli [E. coli] (principal); J96.01 Acute respiratory failure with hypoxia; J15.5 Pneumonia due to Escherichia coli; J10.08 Influenza due to other identified influenza virus with other specified pneumonia; F17.210 Nicotine dependence, cigarettes, uncomplicated; F41.9 Anxiety disorder, unspecified; N39.0 Urinary tract infection, site not specified; Z79.899 Other long term (current) drug therapy
CPT/HCPCS: 36415; 36600; 71046; 71275; 80048; 80053; 80202; 81001; 82803; 83605; 84443; 85025; 85610; 85730; 87040; 87070; 87077; 87086; 87088; 87186; 87205; 87449; 87631; 93005; 93306; 94640; 94668; 94762; 97802; 99285; Q9967; A4216; J0696; J1940

== ENCOUNTER → 2025-01-11 | Outpatient (CLI) | payer MEDICAID, SELFPAY | END | disposition home or self-care (01) | LOC: LABSPEC 10:06 | PROVIDERS: Referring Provider Nurse Practitioner Acute Care; Visit Provider Nurse Practitioner Acute Care | DX: R05.9 Cough, unspecified (principal) | CPT/HCPCS: 87070; 87077; 87186; 87205 ==

== ENCOUNTER → 2025-02-17 | Outpatient (CLI) | payer MEDICAID, SELFPAY | END | disposition home or self-care (01) | LOC: PSN 09:39 | PROVIDERS: Referring Provider Nurse Practitioner Acute Care; Visit Provider Nurse Practitioner Acute Care | DX: R06.02 Shortness of breath (principal) | CPT/HCPCS: 94060; 94726; 94729 ==